=== PATIENT | male | born 1930 | race Hispanic/Latino ===

== ENCOUNTER 2018-01-28 21:24 | Inpatient (IN) | payer MEDICARE ==
[~2018-01-28] VITALS: Ht 165.1 cm; Wt 47.4 kg
[~2018-01-28 21:24] MED LIST: ASPIRIN81 M1 PO; BENAZEPRIL HCL20 MG PO; COUMADIN2.5 MG PO; CRESTOR20 MG
[2018-01-28 21:51] LABS: BASOPHILS % 0.1 % (0.0-1.0); EOSINOPHILS % 0.1 % (0.0-6.0); LYMPHOCYTES # (AUTO) 2.4 (1.0-3.2); LYMPHOCYTES % 16.3 % (18.0-39.1); MEAN CORPUSCULAR HEMOGLOBIN 22.5 pg (28-32); MEAN CORPUSCULAR HGB CONC 27.9 g/dL (31-35); MEAN CORPUSCULAR VOLUME 80.9 fL (81-99); MONOCYTES # (AUTO) 0.8 (0.2-0.8); MONOCYTES % 5.5 % (4.4-11.3); NEUTROPHILS # (AUTO) 11.3 (2.1-6.9); NEUTROPHILS % 76.7 % (38.7-80.0); PLATELET COUNT 301 x10e3/uL (140-360); RED BLOOD COUNT 1.73 x10e6/uL (4.3-5.7); RED CELL DISTRIBUTION WIDTH 18.4 % (11.7-14.4)
[2018-01-28 21:53] LABS: HEMOGLOBIN 3.9 g/dL (14.0-18.0)
[2018-01-28] MEDS ORDERED: HYDRALAZINE HCL25 MG PO (21:54)
[2018-01-28] MEDS ORDERED: MOBIC15 MG PO (21:54)
[2018-01-28] MEDS ORDERED: LOSARTAN POTAS100 MG PO (21:54)
[2018-01-28] MEDS ORDERED: ELIQUIS PO (21:54)
[2018-01-28] MEDS ORDERED: ATORVASTATIN CA10 MG PO (21:54)
--- NOTE | 2018-01-28 21:56 | Diagnostic Imaging Report ---
Examination: CT head without contrast Clinical Indication: Seizures. Technique: Transaxial noncontrast images from the skull base through the vertex were obtained. Sagittal and coronal reformatted images were done. Comparison: None Findings: Scalp: No abnormalities. Bones: Intact. No fractures. No blastic or lytic lesions. Brain sulci: Mild volume loss. Ventricles: No hydrocephalus. Extra-axial space: No acute abnormalities. Midline anterior falcine arachnoid cyst, measures 3.1 x 3.5 x 1.5cm (superoinferior x anteroposterior x transverse dimensions) with mild regional mass effect. Parenchyma: There are mild confluent areas of low-attenuation within subcortical and periventricular white matter, nonspecific, but could represent microvascular ischemic disease. No masses, hemorrhage, or acute or chronic cortical based vascular insults. Suprasellar region: No abnormalities. Craniocervical junction: The foramen magnum is patent. No Chiari one malformation. Incidental findings: Atherosclerotic calcification of the cavernous and supraclinoid internal carotid and V4 segments of the bilateral vertebral arteries. Impression: 1. No acute intracranial abnormality. 2. Mild chronic microvascular ischemic change and volume loss. Signed by: Dr. Giovanna Martin M.D. on 01/28/2018 9:53 PM
[2018-01-28 21:58] LABS: INR 1.33; PROTHROMBIN TIME 15.5 seconds (11.9-14.5)
[2018-01-28 21:59] LABS: PARTIAL THROMBOPLASTIN TIME 24.8 seconds (23.8-35.5)
[2018-01-28] MEDS ORDERED: SODIUM CHLORIDE 0.9% 250ML 250 ML IV ONE (22:00)
[2018-01-28] MEDS ORDERED: SODIUM CHLORIDE 0.9% 1000ML 1,000 ML IV ONE (22:00)
[2018-01-28 22:08] LABS: ALBUMIN 2.9 g/dL (3.5-5.0); ANION GAP 23.6 mmol/L (8-16); CALCIUM 8.8 mg/dL (8.4-10.2); CREATININE, SERUM 2.21 mg/dL (0.72-1.25)
--- NOTE | 2018-01-28 22:08 | Diagnostic Imaging Report ---
EXAMINATION: CHEST SINGLE (PORTABLE) INDICATION: Seizure. COMPARISON: None FINDINGS: TUBES and LINES: The pacemaker is intact. LUNGS: Lungs are not well inflated. There are bibasilar atelectasis. There is mild prominence of the central pulmonary vasculature, consistent with pulmonary venous congestion. PLEURA: No pleural effusion or pneumothorax. HEART AND MEDIASTINUM: Cardiac size is mildly enlarged. There are atherosclerotic calcifications within the aorta. Status post CABG procedure changes with midline sternotomy wires intact. BONES AND SOFT TISSUES: No acute osseous lesion. Soft tissues are unremarkable. UPPER ABDOMEN: No free air under the diaphragm. IMPRESSION: No acute thoracic abnormality. Signed by: Dr. Saud Serrano M.D. on 01/28/2018 10:03 PM
[2018-01-28 22:12] LABS: POTASSIUM 5.6 mmol/L (3.5-5.1)
[2018-01-28 22:14] LABS: CREATINE KINASE MB 130.5 ng/mL (0-5.0)
[2018-01-28 22:20] LABS: BILIRUBIN,URINE NEGATIVE (NEGATIVE); CLARITY,URINE SL CLOUDY (CLEAR); COLOR,URINE YELLOW (YELLOW); KETONES,URINE NEGATIVE (NEGATIVE); LEUKOCYTE ESTERASE ,URINE 1+ (NEGATIVE); NITRITE,URINE NEGATIVE (NEGATIVE); PROTEIN,URINE DIPSTICK TRACE (NEGATIVE); URINE UROBILINOGEN 0.2 mg/dL (0.2 - 1)
[2018-01-28 22:24] LABS: AMORPHOUS SEDIMENT,URINE FEW (FEW); EPITHELIAL CELLS,URINE FEW /LPF; WBC,URINE (MAN) 0-5 /HPF (0-5)
[2018-01-28] MEDS ORDERED: CALCIUM CHLORIDE 10% 1.36 MEQ/ML 10ML SYR IV STA (22:33)
[2018-01-28] MEDS ORDERED: SODIUM BICARBONATE 8.4% INJ 50 ML SYR IV STA (22:33)
[2018-01-28] MEDS ORDERED: DEXTROSE 50% SYRINGE 50 ML IV STA (22:33)
[2018-01-28] MEDS ORDERED: INSULIN REGULAR, HUMAN 100 UNIT/1 ML 3ML VIAL IV ONE (22:45)
[2018-01-28] MEDS: SODIUM CHLORIDE 0.9% 1000ML 1,000 ML IV SCH (23:04)
[2018-01-28] MEDS ORDERED: ONDANSETRON HCL INJ 2 MG/ML VIAL IV PRN (23:15)
[2018-01-29] VITALS (93 sets, daily range): BP systolic 68–145; BP diastolic 48–122
--- OUTSIDE RECORDS SUMMARY | 2018-01-29 00:06 | XMS REPORT ---
Author Author [facility] Address Unknown Phone Unavailable Care Team Providers Care Nursery Laborer Name Role Phone ROBERT MOLINA Unavailable Unavailable Problems This patient has no known problems. Allergies, Adverse Reactions, Alerts This patient has no known allergies or adverse reactions. Medications This patient has no known medications. Results Test Description Test Time Test Comments Text Results Atomic Results Result Comments CHEST SINGLE (PORTABLE) [place] [address] Patient Name: MICAH MCKINLEY MR #: [id number] : 1930 Age/Sex: 87/M Req #: [id number] Adm Physician: Ordered by: ROBERT MOLINA MD Report #: [id number] Location: ER Room/Bed: ___ Procedure: [id number] DX/CHEST SINGLE (PORTABLE) Exam Date: 01/28/18 Exam Time: 2119 REPORT STATUS: Signed EXAMINATION: CHEST SINGLE (PORTABLE) INDICATION: Seizure. COMPARISON: None FINDINGS: TUBES and LINES: The pacemaker is intact. LUNGS: Lungs are not well inflated. There are bibasilar atelectasis. There is mild prominence of the central pulmonary vasculature, consistent with pulmonary venous congestion. PLEURA: No pleural effusion or pneumothorax. HEART AND MEDIASTINUM: Cardiac size is mildly enlarged. There are atherosclerotic calcifications within the aorta. Status post CABG procedure changes with midline sternotomy wires intact. BONES AND SOFT TISSUES: No acute osseous lesion. Soft tissues are unremarkable. UPPER ABDOMEN: No free air under the diaphragm. IMPRESSION: No acute thoracic abnormality. Signed by: Dr. Saud Serrano M.D. on 2017 10:03 PM Dictated By: SAUD MORRISON MD 02 Transcribed By: WENDY on 01/28/182202 COPY TO: ROBERT MOLINA MD CT BRAIN WO [place] [address] Patient Name: MICAH MCKINLEY MR #: [id number] : 1930 Age/Sex: 87/M Req # : [id number] Adm Physician: Ordered by: ROBERT MOLINA MD Report # : [id number] Location: ER Room/Bed: Procedure: [id number] CT/CT BRAIN WO Exam Date: 01/28/18 Exam Time: 2119 REPORT STATUS: Signed Examination: CT head without contrast Clinical Indication: Seizures. Technique: Transaxial noncontrast images from the skull base through the vertex were obtained. Sagittal and coronal reformatted images were done. Comparison: None Findings: Scalp: No abnormalities. Bones: Intact. No fractures. No blastic or lytic lesions. Brain sulci: Mild volume loss. Ventricles: No hydrocephalus. Extra- axial space: No acute abnormalities. Midline anterior falcine arachnoid cyst , measures 3.1 x 3.5 x 1.5cm (superoinferior x anteroposterior x transverse dimensions) with mild regional mass effect. Parenchyma: There are mild confluent areas of low-attenuation within subcortical and periventricular white matter, nonspecific, but could represent microvascular ischemic disease. No masses, hemorrhage, or acute or chronic cortical based vascular insults. Suprasellar region: No abnormalities. Craniocervical junction: The foramen magnum is patent. No Chiari one malformation. Incidental findings: Atherosclerotic calcification of the cavernous and supraclinoid internal carotid and V4 segments of the bilateral vertebral arteries. Impression: 1. No acute intracranial abnormality. 2. Mild chronic microvascular ischemic change and volume loss. Signed by: Dr. Giovanna Martin M.D. on 01/28/2018 9:53 PM Dictated By: GIOVANNA WILBURN MD 52 Transcribed By: WENDY on 01/28/182152 COPY TO: ROBERT MOLINA MD
--- OUTSIDE RECORDS SUMMARY | 2018-01-29 00:06 | XMS REPORT | Clinical Summary ---
Author Author [facility] Address Unknown Phone Unavailable Care Team Providers Care Motel Maid Name Role Phone PCP Unavailable Allergies No Known Allergies Current Medications Prescription Sig. Disp. Refills Start End Date Status Date niacin 500 MG tablet Take 1,000 mg by mouth Active daily with breakfast Dose confirmed and verified with the patient.. atorvastatin (LIPITOR) 20 Take 20 mg by mouth Active MG tablet nightly . prasugrel (EFFIENT) 5 mg Take 5 mg by mouth. Active tablet Active Problems Problem Noted Date DVT (deep venous thrombosis) ([facility]) 07/02/2015 Anemia 07/02/2015 Cellulitis 07/02/2015 Severe sepsis ([facility]) 06/23/2015 Coronary atherosclerosis of squaxin coronary artery 02/20/2015 Nonspecific abnormal unspecified cardiovascular function study 02/20/2015 Social History Tobacco Use Types Packs/Day Years Used Date Never Smoker Alcohol Use Drinks/Week oz/Week Comments No Sex Assigned at Date Recorded Not on file Last Filed Vital Signs Not on file Plan of Treatment Not on file Results Not on fileafter 01/28/2017
[2018-01-29] MEDS: FUROSEMIDE INJ 10 MG/ML 2 ML VIAL IV PRN ×2 (02:03→04:46)
[2018-01-29 09:58] LABS: CREATININE,URINE RANDOM 66.87 mg/dL (63-166); TOTAL PROTEIN, URINE 19.5 mg/dL (1-14)
--- NOTE | 2018-01-29 09:59 | Consultation ---
DATE OF CONSULTATION: January 29, 2018 RENAL CONSULTATION Thank you for the consultation Mr. Medel is a pleasant 87-year-old male with a past medical history significant for coronary artery disease, status post CABG, prior history of what appears to be hypertension, history of pacemaker placement, likely chronic kidney disease, although stage for CKD has not been determined as yet, admitted to the hospital after he came in to the emergency room with complaints of weakness, confusion, generalized fatigue. Was found on blood work to have very low hemoglobin levels. Hemoglobin was 3.9, hematocrit 14. The patient had guaiac-positive stool. Was admitted and placed on blood transfusion, at least 3 units PRBC. Found to have elevated potassium at 5.6, bicarb of 11, BUN of 71, and creatinine of 2.2. Renal consultation has been asked for to follow him for what appears to be acute kidney injury on probable chronic kidney disease, stage not determined as yet. The patient is seen in the ICU this morning. He is not in any acute respiratory distress. He is getting the 3rd of his packed red blood cells. He has also been receiving Lasix in between since he does have a history of congestive heart failure, and will attempt to get fluid overloaded. The patient currently is alert, awake and responsive appropriately to commands. No nausea. No vomiting. No chest pain. No fever. No chills. No abdominal pain. No other specific symptoms at this time. PAST MEDICAL HISTORY: As outlined above. ALLERGIES: NO KNOWN DRUG ALLERGIES. SOCIAL HISTORY: No tobacco. No alcohol use. FAMILY HISTORY: Noncontributory. REVIEW OF SYSTEMS: See HPI. Otherwise, all systems negative. MEDICATIONS: Have been reviewed per chart. PHYSICAL EXAMINATION VITAL SIGNS: As follows: Blood pressure 119/74, pulse 72, afebrile, and 100% O2 sats on 2 L nasal cannula. HEENT: No cervical lymphadenopathy. NECK: Supple without masses. No obvious JVD. Moist oral mucosa. SKIN: Appears to be dry with poor skin turgor. CHEST: Good expansion. No chest wall tenderness. Lungs are clear to auscultation bilaterally. CARDIOVASCULAR: S1 and S2. No obvious gallop, rub or murmur. ABDOMEN: Soft. Positive bowel sounds. Nontender. No organomegaly. EXTREMITIES: No evidence of lower extremity edema. No clubbing. No cyanosis. NEUROLOGIC: Awake, alert and oriented times 3. Grossly, he has generalized weakness. Otherwise, nonfocal exam. LABS: Sodium 142. These are from last night. Potassium 5.6, chloride 113, carb of 11, BUN of 71, creatinine of 2.2. Calcium of 8.8. Glucose of 183. Troponin was high at 56. IMPRESSION AND PLAN 1. Acute kidney injury on chronic kidney disease, stage not determined yet: Acute kidney injury is likely secondary to the patient developing hypoperfusion state from decreased blood pressure likely secondary to hemorrhagic shock. The patient's blood pressure has come up after receiving packed red blood cell transfusions. I agree to correct the patient's hemoglobin and hematocrit by giving him blood products. The patient may benefit from intravenous fluids. However, after the 3rd packed red blood cell transfusion is complete, I would recheck his basic metabolic panel and decide what type of fluid, if any, to put the patient on. Will have to keep in mind that the patient does have a history of coronary artery disease, and came in with mild pulmonary vascular congestion on the chest x-ray. Therefore, would not be too aggressive with intravenous hydration especially since his blood pressure has already come up with packed red blood cell transfusion. We will recheck labs and decide whether or not he might need bicarb with intravenous fluids. Will recheck labs in the morning, also including basic metabolic panel, mag, phos, CBC, urine electrolytes. Will get a renal ultrasound as a baseline to evaluate for chronicity. Avoid potential nephrotoxic agents at this time. Avoid any JEVON inhibitors, Aleve, nonsteroidal anti-inflammatory drugs, and intravenous dye. Will continue to monitor closely with you and make further recommendations. Will have him come and see us in the outpatient setting as well once he is discharged from the hospital. 2. Hypotension: Blood pressure has already improved. Hold any and all blood pressure medicines at this time especially potassium sparing medications. Agree with packed red blood cell transfusion. Will repeat chemistry panel. After that, decide whether or not he might benefit from some intravenous fluids. 3. Metabolic acidosis likely secondary to hypoperfusion state: Will also order a lactic acid level for the morning. Expect that since his blood pressure is starting to improve that his metabolic acidosis will improve as renal perfusion improves and kidney function improves. If his bicarb is still low on repeat blood work, then may consider giving him gentle intravenous fluids with bicarb. 4. Hyperkalemia: Has been treated medically in the emergency room. Repeat lab will be done once this packed red blood cell transfusion is complete. If the potassium is still elevated, will retreat medically. Currently, no acute indication for dialysis at this time. Thank you once again for this consultation, Dr. Beckford and Dr. Liriano. Will follow the patient closely along with you and make further recommendations. Job#: [id number] RI cc:MD KAY ENGLAND M.D.
[2018-01-29] MEDS ORDERED: ONDANSETRON HCL INJ 2 MG/ML VIAL IV PRN (10:15)
[2018-01-29] MEDS ORDERED: ACETAMINOPHEN 325 MG TAB PO PRN (10:15)
--- NOTE | 2018-01-29 10:46 | History and Physical ---
CHIEF COMPLAINT: Dizziness and fall. HISTORY OF PRESENT ILLNESS: Mr. Medel is an 87-year-old male who is a regular patient of Dr. Tanner Soto. He presented to the emergency room because he was having dizzy episodes and falling for the last 3 days. The patient's reported that primary sales engineering manager was called, and she got an appointment to see him next month. In the emergency room, the patient was found to have a hemoglobin of 3 with renal failure and a creatinine of 2.2. The patient was admitted to ICU as the patient's troponin was 50 as well. He is receiving 4 units of blood. He is denying any complaints of chest pain, nausea, or vomiting and feels better now. REVIEW OF SYSTEMS GENERAL: Denies any fever or chills. HEAD: Denies any head trauma. ENT: Denies any earache. CVS: He was having chest discomfort. RESPIRATORY: He was having shortness of breath, too. GI: Denies any nausea or vomiting. MUSCULOSKELETAL: Denies any arthralgias or myalgias. NEURO: Denies any focal weakness. OTHER: The rest of the review of systems are negative except as in HPI. PAST MEDICAL HISTORY: Pacemaker placement, hypertension, chronic kidney disease, coronary artery disease. PAST SURGICAL HISTORY: CABG. FAMILY AND SOCIAL HISTORY: He does not smoke and does not drink. PHYSICAL EXAMINATION VITAL SIGNS: Temperature 98.6, pulse of 73, blood pressure 106/72, respiratory rate of 18, O2 sat 100% on 2 liters. SKIN: Warm and dry. HEENT: Head is atraumatic and normocephalic. Pupils are reactive. NECK: Supple. CHEST: Clear to auscultation bilaterally. No wheezing. No crackles. HEART: S1 and S2 audible. ABDOMEN: Soft, nontender. EXTREMITIES: No clubbing, cyanosis or edema. NEUROLOGIC: Awake, alert, oriented, following commands. No focal neurologic deficit. LABS: White count of 14,000, hemoglobin 3.9, platelets 301. Chemistry: Sodium 142, potassium 5.6, chloride 113, bicarb 11, BUN 71, creatinine 2.2. CK-MB 130, troponin 56, CK 994. INR is 1.33. EKG showed paced rhythm. ASSESSMENT/PLAN: Mr. Medel is an 87-year-old male with shortness of breath, dizziness, high troponin, hemoglobin of 3, guaiac-positive stools. Patient was on Effient and possibly was on Eliquis, too. CURRENT PROBLEMS 1. Acute blood loss anemia. 2. Coronary artery disease. 3. Fuzwp-mb-cbrsfwq kidney injury. 4. Dsv-SK-kfrmivjed myocardial infarction, likely due to severe anemia and blood loss. 5. Metabolic acidosis. 6. Pacemaker placement. PLAN 1. Transfuse the patient 4 units of blood. Consult GI. 2. Cardiology consult. Positive troponin. Possibility of NSTEMI versus ischemia due to anemia. 3. Nephrology consult. Pyirc-sr-omanlbw kidney injury. Patient is on IV hydration. 4. Blood pressure has been on the lower side because of hemorrhagic shock. Will hold off on the antihypertensive medications. Discussed with the patient's at bedside in detail. Critical care time spent was 50 minutes. Job#: [id number]
[2018-01-29 11:36] LABS: BASOPHILS % 0.2 % (0.0-1.0); HEMATOCRIT 27.5 % (38.2-49.6); HEMOGLOBIN 9.1 g/dL (14.0-18.0); LYMPHOCYTES # (AUTO) 1.1 (1.0-3.2); LYMPHOCYTES % 10.8 % (18.0-39.1); MEAN CORPUSCULAR HEMOGLOBIN 27.2 pg (28-32); MEAN CORPUSCULAR HGB CONC 33.1 g/dL (31-35); MEAN CORPUSCULAR VOLUME 82.1 fL (81-99); MONOCYTES # (AUTO) 0.7 (0.2-0.8); MONOCYTES % 6.8 % (4.4-11.3); NEUTROPHILS # (AUTO) 8.2 (2.1-6.9); NEUTROPHILS % 81.6 % (38.7-80.0); PLATELET COUNT 167 x10e3/uL (140-360); RED BLOOD COUNT 3.35 x10e6/uL (4.3-5.7); RED CELL DISTRIBUTION WIDTH 16.6 % (11.7-14.4)
[2018-01-29 11:54] LABS: ALBUMIN 2.3 g/dL (3.5-5.0); ANION GAP 12.5 mmol/L (8-16); CALCIUM 8.4 mg/dL (8.4-10.2); CREATININE, SERUM 1.75 mg/dL (0.72-1.25); POTASSIUM 4.5 mmol/L (3.5-5.1)
[2018-01-29 12:17] LABS: CREATINE KINASE MB 86.5 ng/mL (0-5.0)
[2018-01-29 12:46] LABS: CHOL/HDL RATIO 2.8 (3.9-4.7); PHOSPHORUS 4.2 MG/DL (2.3-4.7)
[2018-01-29 12:59] LABS: B-TYPE NATRIURETIC PEPTIDE2 3001.9 pg/mL (0-100)
[2018-01-29 13:05] LABS: THYROID STIMULATING HORMONE 0.963 uIU/mL (0.350-4.940)
--- NOTE | 2018-01-29 13:28 | Consultation ---
DATE OF CONSULTATION: January 29, 2018 CARDIOLOGY CONSULTATION REASON FOR CONSULTATION: Acute myocardial infarction, severe anemia. HISTORY: I was called in the propeller inspector hours by the ER physician for a gentleman who is at the ER with failure to thrive of 2 weeks' duration. His BUN at 71, creatinine 2.2, potassium at 5.6, and his hemoglobin only of 3.9 and hematocrit 40%. I recommended for him to repeat CBC to document those numbers, however this was not done. Patient received already 2 units packed red cells and is to receive the 3rd unit of packed red cells. Patient visited with his . Information taken from the . Apparently patient becoming forgetful over the last year or so but for the last 2 weeks it was very bad. As per he is very lethargic, obtunded, cannot do much activity, staying most of the time at home and he is very forgetful. She cannot take care of him. That is why she brought him to the emergency room. Patient is known with coronary artery disease, had coronary artery bypass surgery in 2003 of questionable details. He had pacemaker implantation at that time with no generator change. He is followed by . Five years ago he had intervention on his coronary. He was maintained on Effient. Also Eliquis later on added to his medical regimen. Patient's main problem is 2 weeks' duration of weakness, lethargic, obtunded, more confused. He was brought to the emergency room because she cannot take care of him because he is becoming more obtunded and very weak and lethargic. In emergency room his BUN was 71, creatinine of 2.2, potassium 5.6, hemoglobin 33.9, hematocrit of 14% and platelet of 301,000. His CK total of 994, MB of 130, troponin of 56. Patient seen by renal service. He was given IV fluid and the renal taking care of his problems. There is no history of congestive heart failure as diagnosis but patient does have severe shortness of breath on exertion and easy fatigability but he is still functional, he is still able to go to the bathroom, "his mind is just failing him more than his body" prior to this acute illness 2 weeks ago. REVIEW OF SYSTEMS GENERAL: No fever. No chills. CARDIAC/PULMONARY: As per acute illness, mainly shortness of breath on exertion, easy fatigability, chest tightness and in the last 2 weeks lethargic and dizzy. GI: Constipation. : Patient does have chronic problem with his urine. He used to catheterize himself to relief his obstructive disease and weak bladder. MUSCULAR: Nonspecific aches. NEUROLOGY: No seizure activity although he was very weak. The said that seizure but by questioning her there is no seizure activity. He is obtunded and lethargic, no local deficits. MENTATION: Patient becoming very forgetful over the last year or so, worse in the last couple of weeks. HEMATOLOGICAL: Easy bruising but no overt bleeding noted prior to this admission. PAST MEDICAL HISTORY 1. Coronary artery disease post coronary bypass surgery in 2003. 2. Pacemaker implantation in 2003. 3. Possible history of congestive heart failure. 4. Possible chronic kidney disease. 5. Definite weak bladder and patient using a Candelaria catheter to catheterize himself. 6. Patient becoming more forgetful and possible dementia. 7. Status post PCI latest 5 years ago by . 8. Atrial arrhythmia. Patient is on Eliquis. HOME MEDICATIONS: Long list including Lipitor 10 mg a day, Eliquis one tablet twice a day, Effient 10 mg a day, hydralazine 50 mg three times a day, losartan 100 mg a day, meloxicam 15 mg a day. ALLERGIES: NONE. FAMILY HISTORY: No family history of premature coronary artery disease. PHYSICAL EXAMINATION VITALS: Height of 5 feet 5 inches, weight of 127 pounds. Blood pressure 100/70. Heart rate of 70. Respiratory rate of 18. HEENT: Pupils are reactive. NECK: No elevation of jugular venous pulsation. CHEST: Crackles bilaterally. HEART: PMI 5th left intercostal space increased intensity of 2nd heart sound. There is murmur over the left sternal border. Ejection systolic murmur. ABDOMEN: Soft. Bowel sounds are present. No organomegaly. EXTREMITIES: No edema. No clubbing. Decreased feet pulses. NEUROLOGIC: Able to move his extremities however he does not seem to be oriented. He is a little bit obtunded and lethargic. LABORATORY DATA: Sodium of 142, potassium 5.6, BUN of 71, creatinine of 2.2. Bicarb of only 11. White blood cell count of 14.6, hemoglobin 3.9, hematocrit 14%, platelet count 301,000. Stool for blood is positive. CK of 994, MB of 130, troponin of 56. EKG showing pacer activities. IMAGING: Chest x-ray showing no acute changes. IMPRESSION AND PLAN 1. Probably euckx-oa-ysbpqxq gastrointestinal losses since patient tolerating the slow hemoglobin if it is correct. Patient already received the blood. 2. Myocardial infarction definitely by enzymes. 3. Usezf-ni-tnaakhb renal insufficiency. 4. Weak bladder in patient using catheter to catheterize himself at home. 5. Pacemaker. 6. Coronary artery bypass surgery. 7. Percutaneous coronary intervention 5 years ago. Cardiac-camacho definitely patient should not be anticoagulated or have any antiplatelet. Support volume and observe to avoid volume overload. Will check an echocardiogram. Will repeat all the lab. Will check his pacemaker. Will follow patient's progression with you and would like to thank you for your kind referral. Job#: [id number] JAGDISH
[2018-01-29] MEDS: SODIUM CHLORIDE 0.9% 1000ML 1,000 ML IV SCH ×3 (13:31→22:58)
[2018-01-29] MEDS: METOPROLOL TARTRATE 25 MG TAB PO SCH ×2 (13:41→18:00)
[2018-01-29] MEDS ORDERED: SODIUM BICARBONATE 8.4% 75 ML in SODIUM CHLORIDE 0.45% 1,000 ML IV ONE (14:45)
--- NOTE | 2018-01-29 15:32 | Diagnostic Imaging Report ---
PROCEDURE:US RETROPERITONEAL ( KIDNEY ). COMPARISON:None. INDICATIONS:Eval Size TECHNIQUE: Hoyos-scale and color sonographic images of the bilateral kidneys and bladder where obtained in transverse and longitudinal planes. FINDINGS: RIGHT KIDNEY: Measures 8.1 cm in length. The cortex measures 1.1 cm in thickness. Cysts: None Solid masses: None Stones: None Hydronephrosis: None Echogenicity: Increased. LEFT KIDNEY: Measures 9.5 cm in length. The cortex measures 1.1 cm in thickness.. Cysts: None Solid masses: None Stones: None Hydronephrosis: None Echogenicity: Increased Bladder: Collapsed around a Candelaria catheter No free fluid in the pelvis. Survey images of the liver demonstrate no focal abnormality. CONCLUSION: Increased renal echotexture consistent with medical renal disease. Bilateral renal atrophy. No renal mass or hydronephrosis. Dictated by: Jennifer Mari M.D. on 01/29/2018 at 15:34 Electronically approved by: Jennifer Mari M.D. on 01/29/2018 at 15:34
--- NOTE | 2018-01-29 18:46 | Consultation ---
DATE OF CONSULTATION: January 29, 2018 GASTROENTEROLOGY CONSULTATION REFERRING PHYSICIAN: Dr. Beckford. REASON FOR CONSULTATION: Severe anemia. HISTORY OF PRESENT ILLNESS: Mr. Medel is an 87-year-old man who came in with failure to thrive. His was unable to take care of him. He has significant weakness. He is found to have a major acute myocardial infarction driven by the anemia. He has a history of coronary disease. He is confused and not offering much information. He was found to be FOBT positive in the ER. There is no report of overt bleeding. PAST MEDICAL HISTORY: 1. Coronary artery disease. 2. Chronic kidney disease. 3. Hypertension. 4. Pacemaker. MEDICATIONS AND ALLERGIES: REVIEWED. PLEASE SEE MAR, MEDICATION RECONCILIATION FORM. SOCIAL HISTORY: No alcohol, tobacco or illicit substance. FAMILY HISTORY: Reviewed and noncontributory. REVIEW OF SYSTEMS: Ten-system review is positive for that mentioned in history of present illness. He is lethargic and does not offer very much information. Therefore, review of systems is limited. PHYSICAL EXAMINATION: GENERAL: He is calm, in no acute distress, lying in bed. HEENT: Pupils equal, round, reactive. NECK: Supple. LUNGS: Clear. CARDIOVASCULAR: S1/S2. ABDOMEN: Soft, nontender, nondistended. Normal bowel sounds. EXTREMITIES: No clubbing, cyanosis or edema. PSYCH: Calm, cooperative. NEUROLOGIC: Alert. HEME/ONC: No ecchymosis or cervical adenopathy. The electronic health records reviewed for laboratory and radiologic studies as well as history. ASSESSMENT: 1. Severe anemia, likely acute on chronic. 2. Dfc-RW-chwylqbak myocardial infarction. 3. Coronary artery disease and pacemaker. PLAN: At the current time will get iron studies although they will be altered post transfusion. Will also get abdominal imaging to evaluate his elevated LFTs, which is likely a mild ischemic injury. Will also evaluate the liver parenchyma for any underlying hepatic insufficiency. Patient will need endoscopy at some point. I discussed today with Dr. Díaz over the phone. He is a higher risk for endoscopic procedures at the current time. As it will probably not alter management acutely, will hold off on endoscopy for now. However, will need to be done down the road. Will monitor for any overt bleeding. Monitor hemoglobin/hematocrit. He is avoiding NSAIDs and anticoagulation at this time. Thank you very much for asking me to see Mr. Medel. Any questions or concerns, please do not hesitate to contact me. Will follow closely with you. Job#: [id number] EV
[2018-01-29 21:20] LABS: CREATINE KINASE MB 43.2 ng/mL (0-5.0)
[2018-01-30] VITALS (89 sets, daily range): BP systolic 72–134; BP diastolic 55–108
[2018-01-30] MEDS: METOPROLOL TARTRATE 25 MG TAB PO SCH ×5 (00:51→23:24)
[2018-01-30 06:21] LABS: BASOPHILS % 0.1 % (0.0-1.0); HEMATOCRIT 27.7 % (38.2-49.6); HEMOGLOBIN 8.9 g/dL (14.0-18.0); LYMPHOCYTES # (AUTO) 1.2 (1.0-3.2); LYMPHOCYTES % 11.8 % (18.0-39.1); MEAN CORPUSCULAR HEMOGLOBIN 27.1 pg (28-32); MEAN CORPUSCULAR HGB CONC 32.1 g/dL (31-35); MEAN CORPUSCULAR VOLUME 84.5 fL (81-99); MONOCYTES # (AUTO) 0.6 (0.2-0.8); MONOCYTES % 5.7 % (4.4-11.3); NEUTROPHILS # (AUTO) 8.4 (2.1-6.9); NEUTROPHILS % 81.6 % (38.7-80.0); PLATELET COUNT 180 x10e3/uL (140-360); RED BLOOD COUNT 3.28 x10e6/uL (4.3-5.7); RED CELL DISTRIBUTION WIDTH 17.2 % (11.7-14.4)
[2018-01-30 06:43] LABS: ALBUMIN 2.2 g/dL (3.5-5.0); ANION GAP 13.4 mmol/L (8-16); CALCIUM 8.1 mg/dL (8.4-10.2); CHOL/HDL RATIO 2.9 (3.9-4.7); CREATININE, SERUM 1.74 mg/dL (0.72-1.25); POTASSIUM 4.4 mmol/L (3.5-5.1)
[2018-01-30 07:00] LABS: FERRITIN 26.17 ng/mL (21.81-274.66)
[2018-01-30 07:06] LABS: THYROID STIMULATING HORMONE 0.978 uIU/mL (0.350-4.940)
[2018-01-30 07:07] LABS: PHOSPHORUS 4.7 MG/DL (2.3-4.7)
[2018-01-30] MEDS: SODIUM CHLORIDE 0.9% 1000ML 1,000 ML IV SCH ×2 (09:30→21:51)
[2018-01-30] MEDS: PANTOPRAZOLE 40 MG 10ML VIAL IV SCH ×2 (09:30→17:47)
[2018-01-30] MEDS: IRON SUCROSE 100 MG in SODIUM CHLORIDE 0.9% 100 ML 100 ML IV SCH (09:30)
--- NOTE | 2018-01-30 09:43 | Progress Note ---
DATE: January 30, 2018 RENAL PROGRESS NOTE SUBJECTIVE: Followed for acute kidney injury on chronic kidney disease, stage not determined, but likely CKD, stage 3 at baseline. Kidney function continues to improve compared with yesterday. Kidney function has improved. Lactic acid is normal. Bicarb has come up to 21 after gentle IV fluid hydration. Potassium has normalized also. The patient overall generally feels better. He is no longer hypotensive. No other complaints. No fever. No chills. No nausea or vomiting at this time. OBJECTIVE VITAL SIGNS: Are as follows: Blood pressure 123/80, pulse 60 and afebrile. LUNGS: Clear to auscultation bilaterally. CARDIOVASCULAR: S1 and S2. No rubs. ABDOMEN: Soft and nontender. EXTREMITIES: No edema. LABS: Have been reviewed. Sodium 146, potassium 4.4, chloride 116, carb 21, BUN 62, creatinine 1.7. Lactic acid was normal. Hematology showed 8.9 hemoglobin, 27.7 hematocrit. IMPRESSION AND PLAN 1. Acute kidney injury on chronic kidney disease, stage 3: Continues to improve as kidney function. Will keep off intravenous fluids to avoid fluid overload. The patient appears euvolemic now. The patient will also require followup in the outpatient setting. 2. Hypertension: Blood pressure is normal now. Keep off blood pressure lowering medications for now. 3. Hyperkalemia, resolved: No further need to treat potassium at this time. 4. Metabolic acidosis: Also resolved. The patient is off the intravenous fluids with the bicarb now. Job#: [id number] SHELBI
--- NOTE | 2018-01-30 11:18 | Diagnostic Imaging Report ---
PROCEDURE:LIVER ULTRASOUND COMPARISON:Renal ultrasound from 01/29/2018 INDICATIONS:ELEVATED LFT FINDINGS: Liver: 14.5 Normal hepatic parenchymal echogenicity. No focal mass. Main portal vein: 1.1 cm in caliber, normal. Hepatopedal flow. Gallbladder: There is wall thickening (4 mm) and a small amount of wilbur-cholecystic fluid. No stones or sludge. Common Bile Duct: 0.2 cm in caliber, normal No echogenic filling defect. Sonographic Whittaker's sign: Reported as negative Right kidney: 9.2 cm in length No solid or cystic mass, echogenic calculi, or hydronephrosis. Normal parenchymal echogenicity. Pancreas: Not well-visualized due to overlying bowel gas. Inferior vena cava: Normal. Aorta: Not well-visualized due to overlying bowel gas. Ascites: None. CONCLUSION: Gallbladder wall thickening and a small amount of pericholecystic fluid, but no gallstones or sludge. The findings are suspicious for acalculous cholecystitis. Dictated by: Henrique Rodríguez M.D. on 01/30/2018 at 11:20 Electronically approved by: Henrique Rodríguez M.D. on 01/30/2018 at 11:20
--- NOTE | 2018-01-30 11:36 | Diagnostic Imaging Report ---
PROCEDURE: A single AP view of the chest. COMPARISON: 01/28/2018 INDICATIONS: MT FINDINGS: Lines/tubes: Left chest wall pacemaker with leads in the expected positions. Lungs: Nonspecific and by basilar air space opacities. Mild interstitial opacities. Pleura: There is no pleural effusion or pneumothorax. Heart and mediastinum: The heart and the mediastinum are unremarkable. Post surgical changes from prior CABG. Bones: No acute bony abnormality. Median sternotomy wires appear intact. IMPRESSION: Interstitial opacities and nonspecific airspace opacities in the lung bases. Suspect mild pulmonary edema. Dictated by: Henrique Rodríguez M.D. on 01/30/2018 at 11:37 Electronically approved by: Henrique Rodríguez M.D. on 01/30/2018 at 11:37
[2018-01-31] VITALS (46 sets, daily range): BP systolic 102–137; BP diastolic 61–107
[2018-01-31] MEDS: METOPROLOL TARTRATE 25 MG TAB PO SCH ×3 (05:11→17:38)
[2018-01-31 06:35] LABS: BASOPHILS % 0.3 % (0.0-1.0); EOSINOPHILS % 0.2 % (0.0-6.0); HEMATOCRIT 29.3 % (38.2-49.6); HEMOGLOBIN 9.1 g/dL (14.0-18.0); LYMPHOCYTES # (AUTO) 0.9 (1.0-3.2); LYMPHOCYTES % 9.8 % (18.0-39.1); MEAN CORPUSCULAR HEMOGLOBIN 27.2 pg (28-32); MEAN CORPUSCULAR HGB CONC 31.1 g/dL (31-35); MEAN CORPUSCULAR VOLUME 87.7 fL (81-99); MONOCYTES # (AUTO) 0.6 (0.2-0.8); MONOCYTES % 6.2 % (4.4-11.3); NEUTROPHILS # (AUTO) 7.8 (2.1-6.9); PLATELET COUNT 159 x10e3/uL (140-360); RED BLOOD COUNT 3.34 x10e6/uL (4.3-5.7)
[2018-01-31 07:01] LABS: ALBUMIN 2.1 g/dL (3.5-5.0); ALBUMIN/GLOBULIN RATIO 1.1 (0.8-2.0); ANION GAP 12.4 mmol/L (8-16); CALCIUM 7.8 mg/dL (8.4-10.2); CREATININE, SERUM 1.26 mg/dL (0.72-1.25); POTASSIUM 4.4 mmol/L (3.5-5.1)
[2018-01-31] MEDS: IRON SUCROSE 100 MG in SODIUM CHLORIDE 0.9% 100 ML 100 ML IV SCH (10:24)
[2018-01-31] MEDS: PANTOPRAZOLE 40 MG 10ML VIAL IV SCH ×2 (10:24→17:37)
--- NOTE | 2018-01-31 14:52 | Progress Note ---
DATE: January 31, 2018 RENAL PROGRESS NOTE SUBJECTIVE: Followed for acute kidney injury on chronic kidney disease stage 3. Acute kidney injury continues to improve. Patient should have been off of the IV fluids last couple of days actually. I had discontinued the IV fluids. They are still showing up on the MAR. Not clear whether or not the patient has been receiving IV fluids overnight; however, the chest x-ray from yesterday did show some mild vascular congestion still. No nausea, no vomiting, no shortness of breath at this time. OBJECTIVE VITAL SIGNS: Vital signs have been noted and are stable. Blood pressure 123/74, pulse 60, afebrile. LUNGS: Minimal rales at the bases. CARDIOVASCULAR: S1 and S2. No rub. ABDOMEN: Soft, nontender. EXTREMITIES: No edema. LABS: Creatinine is 1.26, BUN 54, sodium 143, potassium 4.4, bicarb of 19. IMPRESSION AND PLAN 1. Chronic kidney disease stage 3 at baseline now. Patient should have been off of IV fluids. I will discontinue those from the DEC. He should not have been receiving those over the last couple of days since they were discontinued already. 2. History of congestive heart failure. Chest x-ray did show some mild congestion. Will start him on oral Bumex 1 mg daily and will reevaluate. 3. Metabolic acidosis. Feel secondary to saline load from the normal saline. Will discontinue the IV fluids since it should already have been discontinued. 4. Hypernatremia. Could be from the hypervolemia from the normal saline. Will discontinue the normal saline. Start the patient on oral Bumex. Thank you once again. Job#: [id number] EV
[2018-01-31] MEDS: BUMETANIDE 1 MG TAB PO SCH (17:37)
[2018-02-01 00:05] VITALS: BP 138/81
[2018-02-01 00:20] VITALS: BP 144/80
[2018-02-01] MEDS: METOPROLOL TARTRATE 25 MG TAB PO SCH ×4 (00:30→18:23)
[2018-02-01 03:00] VITALS: BP 138/90
[2018-02-01 04:40] VITALS: BP 131/70
[2018-02-01 06:59] LABS: ANION GAP 16.4 mmol/L (8-16); CALCIUM 8.5 mg/dL (8.4-10.2); CREATININE, SERUM 1.49 mg/dL (0.72-1.25); MAGNESIUM 1.9 MG/DL (1.3-2.1); POTASSIUM 4.4 mmol/L (3.5-5.1)
[2018-02-01] MEDS: IRON SUCROSE 100 MG in SODIUM CHLORIDE 0.9% 100 ML 100 ML IV SCH (09:45)
[2018-02-01] MEDS: PANTOPRAZOLE 40 MG 10ML VIAL IV SCH ×2 (09:45→17:00)
[2018-02-01] MEDS: BUMETANIDE 1 MG TAB PO SCH (09:45)
[2018-02-01 11:09] LABS: BASOPHILS % 0.2 % (0.0-1.0); EOSINOPHILS % 0.1 % (0.0-6.0); HEMOGLOBIN 9.9 g/dL (14.0-18.0); LYMPHOCYTES % 8.3 % (18.0-39.1); MEAN CORPUSCULAR HGB CONC 30.9 g/dL (31-35); MEAN CORPUSCULAR VOLUME 87.2 fL (81-99); MONOCYTES # (AUTO) 0.7 (0.2-0.8); MONOCYTES % 5.6 % (4.4-11.3); NEUTROPHILS # (AUTO) 10.1 (2.1-6.9); NEUTROPHILS % 84.5 % (38.7-80.0); PLATELET COUNT 181 x10e3/uL (140-360); RED BLOOD COUNT 3.67 x10e6/uL (4.3-5.7); RED CELL DISTRIBUTION WIDTH 18.6 % (11.7-14.4)
[2018-02-01] MEDS ORDERED: TAMSULOSIN HCL 0.4 MG CAP PO SCH (11:30)
[2018-02-01] MEDS ORDERED: HALOPERIDOL 5 MG TAB PO PRN (12:00)
[2018-02-01 12:07] LABS: CLARITY,URINE CLOUDY (CLEAR); COLOR,URINE YELLOW (YELLOW)
[2018-02-01 12:08] LABS: BILIRUBIN,URINE NEGATIVE (NEGATIVE); KETONES,URINE NEGATIVE (NEGATIVE); LEUKOCYTE ESTERASE ,URINE 2+ (NEGATIVE); NITRITE,URINE NEGATIVE (NEGATIVE); PROTEIN,URINE DIPSTICK 2+ (NEGATIVE); URINE UROBILINOGEN 0.2 mg/dL (0.2 - 1)
[2018-02-01 12:16] LABS: WBC,URINE (MAN) >50 /HPF (0-5)
[2018-02-01 12:17] LABS: BACTERIA,URINE FEW /HPF; EPITHELIAL CELLS,URINE FEW /LPF; MUCUS,URINE FEW (RARE)
[2018-02-01] MEDS ORDERED: HALOPERIDOL LACTATE 5 MG/ML VIAL IM ONE (13:00)
[2018-02-01 20:40] VITALS: BP 116/67
[2018-02-01] MEDS: TAMSULOSIN HCL 0.4 MG CAP PO SCH (20:56)
[2018-02-02] VITALS (12 sets, daily range): BP systolic 106–133; BP diastolic 62–76
--- NOTE | 2018-02-02 04:31 | Diagnostic Imaging Report ---
EXAMINATION: CHEST XRAY LINE PLACEMENT INDICATION: PICC line placement. COMPARISON: 01/30/2018 FINDINGS: TUBES and LINES: Interval placement of right upper extremity PICC line with distal tip at the level of the mid SVC LUNGS: Lungs are not well inflated. There are bibasilar atelectasis. There is perihilar interstitial opacities, consistent with interstitial edema. PLEURA: Small bilateral pleural effusions. HEART AND MEDIASTINUM: Cardiac size is mildly enlarged. There are atherosclerotic calcifications within the aorta. Midline sternotomy wires are stable, intact BONES AND SOFT TISSUES: No acute osseous lesion. Soft tissues are unremarkable. UPPER ABDOMEN: No free air under the diaphragm. IMPRESSION: Mild cardiomegaly pulmonary edema with bilateral pleural effusions. Signed by: Dr. Saud Serrano M.D. on 02/02/2018 4:27 AM
[2018-02-02 06:41] LABS: BASOPHILS % 0.1 % (0.0-1.0); EOSINOPHILS % 0.4 % (0.0-6.0); HEMATOCRIT 27.5 % (38.2-49.6); HEMOGLOBIN 8.7 g/dL (14.0-18.0); LYMPHOCYTES % 10.3 % (18.0-39.1); MEAN CORPUSCULAR HEMOGLOBIN 27.2 pg (28-32); MEAN CORPUSCULAR HGB CONC 31.6 g/dL (31-35); MEAN CORPUSCULAR VOLUME 85.9 fL (81-99); MONOCYTES # (AUTO) 0.5 (0.2-0.8); MONOCYTES % 5.6 % (4.4-11.3); NEUTROPHILS # (AUTO) 7.8 (2.1-6.9); NEUTROPHILS % 82.3 % (38.7-80.0); PLATELET COUNT 164 x10e3/uL (140-360); RED CELL DISTRIBUTION WIDTH 18.7 % (11.7-14.4)
[2018-02-02] MEDS: METOPROLOL TARTRATE 25 MG TAB PO SCH ×4 (06:43→18:04)
[2018-02-02 07:07] LABS: ANION GAP 10.4 mmol/L (8-16); CALCIUM 8.1 mg/dL (8.4-10.2); CREATININE, SERUM 1.16 mg/dL (0.72-1.25); MAGNESIUM 1.6 MG/DL (1.3-2.1); PHOSPHORUS 3.1 MG/DL (2.3-4.7); POTASSIUM 3.4 mmol/L (3.5-5.1)
[2018-02-02] MEDS: PANTOPRAZOLE 40 MG 10ML VIAL IV SCH ×2 (08:24→18:04)
[2018-02-02] MEDS: BUMETANIDE 1 MG TAB PO SCH (08:24)
[2018-02-02] MEDS ORDERED: POTASSIUM CHLORIDE 20 MEQ TAB CR PO SCH (09:15)
--- NOTE | 2018-02-02 09:46 | Progress Note ---
DATE: February 02, 2018 RENAL PROGRESS NOTE SUBJECTIVE: Followed for acute kidney injury on chronic kidney disease, stage 3. The patient's kidney function continues to improve. Creatinine is down to about 1.2 now. No nausea, no vomiting, no shortness of breath. The patient has responded well to oral Bumex. The patient's overall fluid overload has largely resolved, also. OBJECTIVE VITAL SIGNS: Blood pressure 130/68, 60 pulse, afebrile. LUNGS: Minimal rales at the bases. CARDIOVASCULAR: S1 and S2. No rub. ABDOMEN: Soft, nontender. EXTREMITIES: No edema. LABS: H and H 8.7 and 27.5. Chemistry show potassium 3.4, BUN 41, creatinine 1.2, sodium 143. IMPRESSION AND PLAN 1. Acute kidney injury, resolved. 2. Chronic kidney disease, stage 3, at baseline. 3. Hypertension, controlled more or less. 4. Congestive heart failure history. Continue oral Bumex. Will add oral potassium, since the potassium has been running low. Thank you once again. Job#: [id number]
[2018-02-02] MEDS ORDERED: SINCALIDE 3 MCG/VIAL INJ ONE (11:34)
[2018-02-02] MEDS: PIPER-TAZ 3.375 GM 100 ML IV SCH ×2 (14:18→21:01)
--- NOTE | 2018-02-02 14:18 | Diagnostic Imaging Report ---
Hepatobiliary Scan with Gallbladder Ejection Fraction Clinical information: 87 M with abdominal pain; abnormal abdominal ultrasound Technique: Following intravenous administration of 6.7 millicuries of Tc-99m mebrofenin, dynamic images of the abdomen in the anterior projection were obtained through 30 minutes. Sincalide (CCK analog) 1.2 micrograms was administered intravenously over 30 minutes with additional imaging for determination of gallbladder ejection fraction. Discussion: Perfusion of the liver is normal. Extraction of tracer by the liver parenchyma is normal. Tracer appears promptly within the biliary tract. The gallbladder begins to fill at 12 minutes post injection of tracer and fills adequately. Tracer is seen in the small bowel by 10 minutes. There is no contractile response by the gallbladder to the pharmacologic dose of sincalide. No emptying of the gallbladder occurs during the 30 minute infusion. Impression: 1. Filling of the gallbladder excludes acute cystic duct obstruction/acute cholecystitis, including acalculous cholecystitis. 2. The gallbladder ejection fraction is undefined as there is no emptying of the gallbladder during the infusion of sincalide. 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 Signed by: Dr. Armida Sparks M.D. on 02/02/2018 2:14 PM
[2018-02-02] MEDS: QUETIAPINE FUMARATE 25 MG TAB PO SCH (21:01)
[2018-02-02] MEDS: TAMSULOSIN HCL 0.4 MG CAP PO SCH (21:01)
[2018-02-03] VITALS (7 sets, daily range): BP systolic 100–134; BP diastolic 53–77
[2018-02-03] MEDS: METOPROLOL TARTRATE 25 MG TAB PO SCH ×4 (00:36→18:00)
[2018-02-03 06:38] LABS: BASOPHILS % 0.2 % (0.0-1.0); EOSINOPHILS # (AUTO) 0.1 (0.0-0.4); EOSINOPHILS % 1.4 % (0.0-6.0); HEMOGLOBIN 8.8 g/dL (14.0-18.0); LYMPHOCYTES # (AUTO) 1.3 (1.0-3.2); LYMPHOCYTES % 13.8 % (18.0-39.1); MEAN CORPUSCULAR HEMOGLOBIN 27.2 pg (28-32); MEAN CORPUSCULAR HGB CONC 31.4 g/dL (31-35); MEAN CORPUSCULAR VOLUME 86.4 fL (81-99); MONOCYTES # (AUTO) 0.6 (0.2-0.8); MONOCYTES % 6.1 % (4.4-11.3); NEUTROPHILS % 76.7 % (38.7-80.0); PLATELET COUNT 170 x10e3/uL (140-360); RED BLOOD COUNT 3.24 x10e6/uL (4.3-5.7); RED CELL DISTRIBUTION WIDTH 19.3 % (11.7-14.4)
[2018-02-03 07:17] LABS: ANION GAP 10.4 mmol/L (8-16); BLOOD UREA NITROGEN 29 mg/dL (7-26); BUN/CREATININE RATIO 26 (6-25); CALCIUM 8.1 mg/dL (8.4-10.2); CARBON DIOXIDE 25 mmol/L (22-29); CHLORIDE 111 mmol/L (98-107); CREATININE, SERUM 1.11 mg/dL (0.72-1.25); EST GLOMERULAR FILTRATION RATE > 60 ML/MIN (60-); GLUCOSE 94 mg/dL (74-118); MAGNESIUM 1.4 MG/DL (1.3-2.1); PHOSPHORUS 2.4 MG/DL (2.3-4.7); POTASSIUM 3.4 mmol/L (3.5-5.1); SODIUM 143 mmol/L (136-145)
[2018-02-03] MEDS: PIPER-TAZ 3.375 GM 100 ML IV SCH ×3 (07:52→22:52)
[2018-02-03] MEDS: BUMETANIDE 1 MG TAB PO SCH (09:00)
[2018-02-03] MEDS: PANTOPRAZOLE 40 MG 10ML VIAL IV SCH ×2 (09:00→17:00)
--- NOTE | 2018-02-03 09:29 | Progress Note ---
DATE: February 03, 2018 RENAL PROGRESS NOTE SUBJECTIVE: Followed for acute kidney injury on chronic kidney disease, stage 2 to stage 3. Kidney function continues to improve. Creatinine is down to 1.1. No nausea, no vomiting, no shortness of breath. OBJECTIVE VITAL SIGNS: Have been noted and are stable as follows: Blood pressure 126/67, 60 heart rate, afebrile. LUNGS: Clear to auscultation bilaterally. CARDIOVASCULAR: S1 and S2. No rub. ABDOMEN: Soft, nontender. EXTREMITIES: No edema. LABS: Have been reviewed. Potassium is 3.4. BUN is 29 and creatinine 1.1. IMPRESSION AND PLAN 1. Chronic kidney disease, stage 2 to stage 3. Stable kidney function. Continue to monitor closely. 2. Hypertension. Blood pressure is stable on current regimen. Will continue to monitor closely. 3. Hypokalemia. Increase potassium chloride to 20 mEq twice a day. 4. History of congestive heart failure. Will continue bumetanide 1 mg daily. 5. Proteinuria. Will consider rechecking urine sxdtxnc-cn-srojtujkcr ratio after UTI has resolved, and we will make further recommendations. Thank you once again. Job#: [id number]
[2018-02-03] MEDS: POTASSIUM CHLORIDE 20 MEQ TAB CR PO SCH ×2 (09:30→17:00)
--- NOTE | 2018-02-03 19:32 | Consultation ---
DATE OF CONSULTATION: February 03, 2018 UROLOGY CONSULTATION REASON FOR CONSULTATION: Urinary retention. HISTORY OF PRESENT ILLNESS: Jerson Medel is an 87-year-old man who was found to have urinary retention. He saw Dr. Steve Garcia several weeks ago and basically was instructed to do intermittent self-cath 2 times a day. The patient has not been able to void for some time. The patient denies any previous hematuria, dysuria, urinary tract infections, urolithiasis, denies any urinary incontinence. PAST MEDICAL AND SURGICAL HISTORY 1. Coronary artery disease status post coronary artery bypass grafting x1. 2. Admission with anemia. 3. Presumedly acute renal failure. 4. Status post pacemaker placement. 5. Hypertension. ALLERGIES: NONE KNOWN. CURRENT MEDICATIONS: Please refer to the MAR. FAMILY HISTORY: Noncontributory to the active urological problems. SOCIAL HISTORY: The patient denies smoking, ethanol or drug use. He has supportive family at the bedside. 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 REVIEW OF SYSTEMS: As consistent with above history of present illness and past medical history, otherwise negative for all other systems. PHYSICAL EXAMINATION GENERAL: Very healthy, alert, awake and oriented and a good historian, 87-year-old man lying in bed in no apparent distress. VITAL SIGNS: He is currently afebrile. His vital signs are currently stable. ABDOMEN: Soft, nondistended, nontender, without costovertebral angle tenderness. Kidneys are not palpable and no obvious evidence of hernia. GENITOURINARY: Testes descended bilaterally. Testes and epididymides bilaterally normal. The patient has a normal uncircumcised male phallus with normal meatus without any lesion. DIGITAL RECTAL EXAMINATION: Deferred at the present time. For the remaining physical examination and systems, please refer to the admission history and physical on the chart. LABORATORY STUDIES: Renal sonography revealed bilaterally increased echogenicity but otherwise unremarkable renal ultrasound. A urine culture is significant for Enterococcus faecalis that is pansensitive, and although the patient is on Zosyn, penicillin will do for this particular infection. White blood cell count was elevated to 12,010. Today it is normalized to 9110. Hemoglobin is low at 8.8. It was as low as 3.9 upon admission prior to 4 units of blood. Platelet count normal at 170,000. The patient's creatinine was elevated to 2.21 upon admission, and today it is normalized to 1.11. Patient's calcium is low at 8.1. Patient's potassium is slightly low at 3.4. ASSESSMENT 1. Urinary retention. 2. Candelaria catheter in situ. 3. Urinary tract infection. 4. Leukocytosis that improved. 5. Anemia that is stable. 6. Acute renal failure that is improved. 7. Hypocalcemia. 8. Hypokalemia. PLAN 1. I defer the electrolytes to the renal service. 2. I defer the hematological abnormalities to the primary team. 3. I will order a repeat urine culture and sensitivity. 4. I recommend considering changing of the antibiotics to oral penicillin. 5. The patient needs to follow up for urodynamics tests in office. For now, I would currently leave the Candelaria catheter in place. 6. I recommend continuing the Flomax at the present time. 7. At some point, cystoscopic examination will most likely be warranted. Thank you very much for involving us in the care of your patient. We will be happy to follow him along with you as well as an outpatient. Job#: [id number] EV
[2018-02-03] MEDS: QUETIAPINE FUMARATE 25 MG TAB PO SCH (21:06)
[2018-02-03] MEDS: TAMSULOSIN HCL 0.4 MG CAP PO SCH (21:06)
[2018-02-04] VITALS (7 sets, daily range): BP systolic 115–151; BP diastolic 58–70
[2018-02-04] MEDS: PIPER-TAZ 3.375 GM 100 ML IV SCH ×3 (06:46→22:55)
[2018-02-04] MEDS: METOPROLOL TARTRATE 25 MG TAB PO SCH ×3 (06:47→22:56)
[2018-02-04 07:58] LABS: ANION GAP 8.8 mmol/L (8-16); CREATININE, SERUM 1.15 mg/dL (0.72-1.25); MAGNESIUM 1.4 MG/DL (1.3-2.1); POTASSIUM 3.8 mmol/L (3.5-5.1)
[2018-02-04 08:19] LABS: BILIRUBIN,DIRECT 0.3 mg/dL (0.0-0.5)
[2018-02-04] MEDS ORDERED: SODIUM CHLORIDE 0.9% 250ML 250 ML ONE (08:29)
[2018-02-04] MEDS: PANTOPRAZOLE 40 MG 10ML VIAL IV SCH ×2 (09:00→22:55)
[2018-02-04] MEDS: POTASSIUM CHLORIDE 20 MEQ TAB CR PO SCH (09:00)
--- NOTE | 2018-02-04 10:07 | Progress Note ---
DATE: February 04, 2018 RENAL PROGRESS NOTE SUBJECTIVE: Followed for chronic kidney disease, stage 3; also acute kidney injury, which is resolved now. No nausea, no vomiting. No shortness of breath. OBJECTIVE: VITAL SIGNS: Noted. Blood pressure is 123/63, 85 pulse, afebrile. LUNGS: Clear to auscultation bilaterally. CARDIOVASCULAR: S1 and S2. No rub. ABDOMEN: Soft, nontender. EXTREMITIES: No edema. LABS: Sodium 142, potassium 3.8, BUN 20, creatinine 1.15. IMPRESSION AND PLAN: 1. Acute kidney injury, resolved. 2. Chronic kidney disease, stage 2 to 3, at baseline now. 3. Hypertension, stable. 4. Congestive heart failure history. Continue oral Bumex and potassium. Thank you once again. Job#: [id number]
[2018-02-04] MEDS: BUMETANIDE 1 MG TAB PO SCH (13:13)
[2018-02-04] MEDS: TAMSULOSIN HCL 0.4 MG CAP PO SCH (22:55)
[2018-02-05] VITALS: BP 131/68
[2018-02-05 04:00] VITALS: BP 144/68
[2018-02-05 05:29] LABS: ANION GAP 10.5 mmol/L (8-16); CALCIUM 8.1 mg/dL (8.4-10.2); CREATININE, SERUM 1.2 mg/dL (0.72-1.25); MAGNESIUM 1.4 MG/DL (1.3-2.1); PHOSPHORUS 2.6 MG/DL (2.3-4.7); POTASSIUM 3.5 mmol/L (3.5-5.1)
[2018-02-05] MEDS: PIPER-TAZ 3.375 GM 100 ML IV SCH ×3 (06:30→21:48)
[2018-02-05 07:39] VITALS: BP 121/60
[2018-02-05] MEDS: PANTOPRAZOLE 40 MG 10ML VIAL IV SCH ×2 (08:10→21:48)
[2018-02-05] MEDS: BUMETANIDE 1 MG TAB PO SCH (08:10)
[2018-02-05] MEDS: METOPROLOL TARTRATE 25 MG TAB PO SCH ×2 (08:10→21:00)
[2018-02-05] MEDS: POTASSIUM CHLORIDE 20 MEQ TAB CR PO SCH (09:01)
--- NOTE | 2018-02-05 09:19 | Progress Note ---
DATE: February 05, 2018 RENAL PROGRESS NOTE SUBJECTIVE: Followed for acute kidney injury on chronic kidney disease, stage 3. Patient stabilized. His kidney function now is CKD stage 3 baseline. The patient's overall CHF exacerbation has resolved, and he is doing well with oral bumetanide and potassium supplementation along with that. No nausea. No vomiting. No shortness of breath. OBJECTIVE VITAL SIGNS: Noted. Blood pressure is 121/60, 61 heart rate, afebrile. LUNGS: Clear to auscultation bilaterally. CARDIOVASCULAR: S1 and S2. No rub. ABDOMEN: Soft, nontender. EXTREMITIES: No edema. LABS: Reviewed. Creatinine 1.2, potassium 3.5, sodium 141, IMPRESSION AND PLAN 1. Acute kidney injury, resolved. 2. Chronic kidney disease, stage 3 at baseline. Will continue to follow here and in the outpatient setting. 3. Hypertension. Blood pressure is controlled. 4. Congestive heart failure history. Continue oral bumetanide and oral potassium. Thank you once again. Job#: [id number]
--- NOTE | 2018-02-05 11:12 | Consultation ---
DATE OF CONSULTATION: February 05, 2018 I would like to thank Dr. Beckford for asking me to see Mr. Medel in consultation. REASON FOR CONSULTATION 1. Cardiac debility secondary to recent FL with impaired mobility, transverse and ADL ability. 2. The patient with byynkld-mu-erkwb GI bleed with very low H and H. 3. Fjmnm-wh-bxuffuq renal insufficiency. 4. Painful feet. 5. Right shoulder weakness and tender secondary to fall months ago. HISTORY: The patient is an 87-year-old Latin male who came into the hospital with failure to thrive about 2 weeks duration. His BUN and creatinine were quite elevated. He also had hyperkalemia and found to be extremely anemic with a hemoglobin of 3.9. He had elevated troponins and was found to have a myocardial infarction as well. The patient became very limited, and has been in the hospital for quite some time. He has become quite debilitated. I am being asked to evaluate for rehab needs. 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 The patient has had more increased forgetfulness, cardiac arrhythmia, on Eliquis, bladder weakness. The patient is doing in and out catheterizations on his own. SURGERIES: Include pacemaker implantation. ALLERGIES: NONE. FAMILY HISTORY: Negative for premature coronary artery disease. REVIEW OF SYSTEMS GENERAL: No fever. No chills. CARDIAC: Had some shortness of breath, easy fatigability, some chest tightness over the past 2 weeks prior to admission. Easily fatigued. GI: He has had some constipation. : Has chronic problems with his bladder. Has to self-catheterizations secondary to urinary retention. MUSCULOSKELETAL: He had some weakness of the right shoulder. Had fallen about 1-1/2 to 2 months ago. Has had some weakness since. NEUROLOGIC: Has some painful feet. Denies any numbness or tingling. Has had mentation. Has been having some confusion or forgetfulness more recently, but this could be associated with his medical issues. HEMATOLOGIC: Easy bruising. The patient is quite anemic. PSYCHIATRIC: As above. ORAL: No dysphagia. LABS: White cell count 10.25, hemoglobin 8.9, hematocrit 27.7, and platelets of 180,000. Sodium is 141, potassium 3.4, BUN 41, creatinine 1.16. IMAGING: He had a brain CT, which showed no acute intracranial abnormality. Mild chronic microvascular ischemic changes. Renal ultrasound with increased renal echotexture consistent with medical renal disease. HIDA scan revealed a gallbladder with acute cystic duct obstruction. Gallbladder ejection fraction is undefined as no emptying of the gallbladder during the infusion of the . 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 Chest x-ray with interstitial opacities and nonspecific airspace opacities of the lung bases. Suspect some mild pulmonary edema. PHYSICAL EXAMINATION GENERAL: The patient is sitting up in the chair awake and more alert. He says he is not back to his baseline level of function. HEENT: Eyes: Gaze is conjugant. Oral: Tongue is midline. Ears: No acute hearing loss. NECK: No JVD. HEART: Regular rate and rhythm. LUNGS: Diminished breath sounds throughout. ABDOMEN: Nondistended and nontender. EXTREMITIES: He has some limited shoulder range of motion and weakness to the right shoulder compared to the left shoulder. SENSORY: Denies any numbness or tingling to the hands, feet or face. Manual muscle testing demonstrates shoulder flexion and extension is 4/5 on the left and 4-/5 on the right. 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 In the lower extremities, hip flexion and extension is 4-/5 strength. Knee flexion and extension, he has a little bit of knee flexion contractures, which really the hamstrings are tight, but it is mild. Knee flexion and extension essentially is 4+/5 strength. Ankle dorsiflexion and plantar flexion is 4/5 strength. Sensory, however, is very impaired. It took an exorbitant amount of time to do a ice-kb-jsudu, and even when he got up he was still unsteady. Gait is water gait with wider gait with shortened straddling. IMPRESSION 1. Cardiac debility secondary to myocardial infarction. 2. Recent gastrointestinal bleed with anemia. 3. Renal insufficiency. 4. Right shoulder weakness secondary to fall. 5. The patient with possible pleural effusion. 6. Urinary retention. PLAN: Given his overall function level and slow recovery and due to multiple medical issues ongoing, would recommend inpatient rehab as he lives with his , and she is not really able to help him. He has been unsteady on his gait using a walker prior to this. Pretty much his ADLs, he was modified independent, and now he is probably moderate assist. Gait essentially is going to be moderate to min assist depending on his situation. Will follow along with you. Family is to decide if they want inpatient rehab. Thank you once again for allowing me to participate in the care of this very interesting patient. Job#: [id number] RI
[2018-02-05 13:29] VITALS: BP 119/64
[2018-02-05] MEDS ORDERED: ONDANSETRON HCL 4 MG ORAL DISINTEGRATING TAB SL PRN (16:00)
[2018-02-05 20:00] VITALS: BP 109/56
[2018-02-05] MEDS: TAMSULOSIN HCL 0.4 MG CAP PO SCH (21:48)
[2018-02-06] VITALS: BP_SYST 109; BP_SYST 131; BP_DIAS 56; BP_DIAS 66
[2018-02-06 04:00] VITALS: BP 122/66
[2018-02-06] MEDS: PIPER-TAZ 3.375 GM 100 ML IV SCH ×2 (05:24→15:30)
[2018-02-06 06:35] LABS: ANION GAP 9.8 mmol/L (8-16); CALCIUM 7.8 mg/dL (8.4-10.2); CREATININE, SERUM 1.18 mg/dL (0.72-1.25); MAGNESIUM 1.2 MG/DL (1.3-2.1); POTASSIUM 3.8 mmol/L (3.5-5.1)
[2018-02-06 08:19] VITALS: BP 123/64
[2018-02-06] MEDS: POTASSIUM CHLORIDE 20 MEQ TAB CR PO SCH (09:15)
[2018-02-06] MEDS: METOPROLOL TARTRATE 25 MG TAB PO SCH (09:15)
[2018-02-06] MEDS: PANTOPRAZOLE 40 MG 10ML VIAL IV SCH (09:15)
[2018-02-06] MEDS: BUMETANIDE 1 MG TAB PO SCH (09:15)
[2018-02-06] MEDS ORDERED: BENZOCAINE/TETRACAINE/BUTAMBEN AERO SPRAY 56 GM CAN ONE (12:07)
[2018-02-06 12:26] VITALS: BP 130/71
[2018-02-06 15:45] VITALS: BP 158/74
[2018-02-06 15:56] VITALS: BP 117/66
--- NOTE | 2018-02-06 16:12 | Progress Note ---
DATE: February 06, 2018 REASON FOR CONSULTATION: GHANSHYAM on CKD stage 3. SUBJECTIVE: No acute events overnight, lying comfortably in bed. OBJECTIVE VITAL SIGNS: Temperature 96.4, heart rate 63, respiratory rate 18, blood pressure 130/71, O2 sat is 93% on room air. HEENT: NC/AT, EOMI. LUNGS: Clear to auscultation bilaterally. No wheezing or rales. HEART: Regular rate and rhythm. ABDOMEN: Soft, nontender, nondistended. EXTREMITIES: No edema. LABS: Were reviewed in electronic medical records, significant for hemoglobin of 8.8, creatinine of 1.18 with a GFR of 59. MEDICATIONS: Reviewed on electronic medical record. IMAGING: Was reviewed on electronic medical record. ASSESSMENT AND PLAN 1. Acute kidney injury on chronic kidney disease. GHANSHYAM component has resolved. Now at baseline. CKD stage 3. Continue to avoid NSAIDs and contrast. 2. Hypertension. Continue Bumex and metoprolol. 3. Hypokalemia. Continue potassium chloride. 4. DICTATION CUT OFF HERE, length 1 min 34 sec Job#: [id number]
[2018-02-06] MEDS ORDERED: LIDOCAINE HCL 2% LOCAL INJ 5 ML SDV VIAL INJ ONE (18:20)
[2018-02-06] MEDS ORDERED: PROPOFOL IV EMULSION 10 MG/ML 20 ML VIAL ONE (18:20)
--- NOTE | 2018-02-06 19:08 | Discharge Summary ---
FINAL DIAGNOSES 1. Acute blood loss anemia. 2. Cardiomyopathy. 3. Coronary artery disease. 4. Uwxxf-fb-ldrezio kidney injury. 5. Ouz-FZ-uprcxtcru myocardial infarction. 6. History of pacemaker placement. 7. Urinary tract infection with enterococcus. 8. Chronic indwelling Candelaria because of neurogenic bladder. ADMISSION HISTORY AND HOSPITAL COURSE: Mr. Medel is an 87-year-old male who presented to the emergency room with the complaints of dizziness and fall. The patient was found to have a hemoglobin of 3.9. Had a GI bleed. Cardiac markers were elevated and diagnosed with acute uny-XC-gbacvghmo MA with severe anemia. The patient was transfused. Cardiology, nephrology and GI was consulted. The patient started feeling better. Renal failure improved. He has a neurogenic bladder, and hence Dr. Marrero was consulted. Candelaria was kept. The patient will have the Candelaria catheter for now. His hemoglobin has improved. The patient underwent EGD by Dr. Menezes. Dr. Sadler was consulted, and rehab evaluation was done. The patient will be transferred to acute rehabilitation. The patient underwent EGD. The EGD report is still pending. KAY MOORE MD Job#: [id number] ID
== END 2018-02-06 19:11 | disposition other institution (70) | DRG 281 ==
LOC: ER 21:24 → ICU 23:59 → MED/SURG 02-03 21:24
PROVIDERS: ADMIT Internal Medicine Pulmonary Disease; ATTEND Internal Medicine Pulmonary Disease
PROC: 30250N1 (ICD-10-PCS; principal; 2018-01-28)
PROC: 02HV33Z Insertion of Infusion Device into Superior Vena Cava, Percutaneous Approach (ICD-10-PCS; 2018-02-02)
PROC: 0DB78ZX Excision of Stomach, Pylorus, Via Natural or Artificial Opening Endoscopic, Diagnostic (ICD-10-PCS; 2018-02-06)
DX: I21.A1 Myocardial infarction type 2 (principal); I13.0 Hypertensive heart and chronic kidney disease with heart failure and stage 1 through stage 4 chronic kidney disease, or unspecified chronic kidney disease; T83.511A Infection and inflammatory reaction due to indwelling urethral catheter, initial encounter; D62 Acute posthemorrhagic anemia; N17.9 Acute kidney failure, unspecified; E87.2 Acidosis; K92.1 Melena; I50.30 Unspecified diastolic (congestive) heart failure; G93.1 Anoxic brain damage, not elsewhere classified; E87.0 Hyperosmolality and hypernatremia; E11.22 Type 2 diabetes mellitus with diabetic chronic kidney disease; N18.3 Chronic kidney disease, stage 3 (moderate); E78.5 Hyperlipidemia, unspecified; E87.5 Hyperkalemia; R53.1 Weakness; R41.0 Disorientation, unspecified; Z95.0 Presence of cardiac pacemaker; Z95.1 Presence of aortocoronary bypass graft; I25.10 Atherosclerotic heart disease of native coronary artery without angina pectoris; L89.301 Pressure ulcer of unspecified buttock, stage 1; K22.2 Esophageal obstruction; K44.9 Diaphragmatic hernia without obstruction or gangrene; K29.70 Gastritis, unspecified, without bleeding; K29.80 Duodenitis without bleeding; K26.9 Duodenal ulcer, unspecified as acute or chronic, without hemorrhage or perforation; R80.9 Proteinuria, unspecified; E83.51 Hypocalcemia; R33.9 Retention of urine, unspecified
CPT/HCPCS: 36415; 36569; 43239; 51700; 70450; 71045; 76705; 76770; 78227; 80048; 80053; 80061; 80076; 81001; 82270; 82550; 82553; 82570; 82728; 82948; 83540; 83605; 83735; 83880; 84100; 84156; 84300; 84443; 84466; 84484; 85025; 85610; 85730; 86850; 86900; 86920; 87086; 87186; 88305; 88312; 93005; 93306; 96361; 96367; 96372; 97139; 99285; A9537; J1630; J1756; J2001; J2405; J2543; J2805; J7030; J7050; P9016

== ENCOUNTER 2018-07-15 07:36 | Inpatient (IN) | payer MEDICARE ==
[2018-07-10 14:24] LABS: BASOPHILS # (AUTO) 0.1 (0.0-0.1); BASOPHILS % 0.6 % (0.0-1.0); EOSINOPHILS # (AUTO) 0.2 (0.0-0.4); EOSINOPHILS % 1.9 % (0.0-6.0); HEMATOCRIT 41.8 % (38.2-49.6); HEMOGLOBIN 13.2 g/dL (14.0-18.0); LYMPHOCYTES % 21.5 % (18.0-39.1); MEAN CORPUSCULAR HEMOGLOBIN 27.2 pg (28-32); MEAN CORPUSCULAR HGB CONC 31.6 g/dL (31-35); MONOCYTES # (AUTO) 0.7 (0.2-0.8); MONOCYTES % 7.1 % (4.4-11.3); NEUTROPHILS # (AUTO) 6.4 (2.1-6.9); NEUTROPHILS % 68.4 % (38.7-80.0); PLATELET COUNT 201 x10e3/uL (140-360); RED BLOOD COUNT 4.86 x10e6/uL (4.3-5.7); RED CELL DISTRIBUTION WIDTH 19.2 % (11.7-14.4)
--- NOTE | 2018-07-10 14:24 | Diagnostic Imaging Report ---
Frontal and lateral views of the chest. HISTORY: Preop, prostate surgery COMPARISON: Chest radiographs February 02, 2018 and January 30, 2018 DISCUSSION: Interval removal of the right upper extremity PICC line. Stable dual-lead implanted cardiac device. Lungs: Interval decreased pulmonary interstitial markings and mildly decreased prominent central pulmonary vasculature. No evidence of a consolidative pneumonia or pulmonary alveolar edema. Improved aeration of the lung bases. Pleura: No residual pleural effusion or pneumothorax. Heart and mediastinum: The cardiomediastinal silhouette appears unremarkable. Bones: Diffusely decreased mineralization of the osseous structures limits bone detail. Multiple median sternotomy wires. IMPRESSION: 1. Resolved pulmonary edema and bilateral pleural effusions. 2. No acute radiographic abnormality. Signed by: Dr. Gaudencio Correa D.O., M.M.M. on 07/10/2018 2:21 PM
[~2018-07-15] VITALS: Ht 165.1 cm; Wt 57.8 kg
[~2018-07-15 07:36] MED LIST changes: +ATORVASTATIN CA10 MG PO; +ELIQUIS PO; +FERROUS SULFATE PO; +FLOMAX0.4 MG PO; +HYDRALAZINE HCL25 MG PO; +IOPAMIDOL 610MG/1ML 300 MG/ML VIAL IV ONE; +LOSARTAN POTAS100 MG PO; +METOPROLOL SUCC25 MG PO; +MOBIC15 MG PO; +PEPCID20 MG PO
[2018-07-15] MEDS ORDERED: CEFTRIAXONE SOD 1 GM VIAL ONE (08:43)
[2018-07-15] MEDS ORDERED: GENTAMICIN 80MG/NS 100 ML 200 ML IV ONE (08:43)
[2018-07-15] MEDS ORDERED: METHYLENE BLUE 1% INJ 10 ML VIAL INJ ONE (10:41)
[2018-07-15 13:58] LABS: BASOPHILS % 0.3 % (0.0-1.0); EOSINOPHILS % 0.4 % (0.0-6.0); HEMATOCRIT 41.4 % (38.2-49.6); HEMOGLOBIN 12.9 g/dL (14.0-18.0); LYMPHOCYTES # (AUTO) 2.3 (1.0-3.2); LYMPHOCYTES % 20.2 % (18.0-39.1); MEAN CORPUSCULAR HEMOGLOBIN 27.3 pg (28-32); MEAN CORPUSCULAR HGB CONC 31.2 g/dL (31-35); MEAN CORPUSCULAR VOLUME 87.7 fL (81-99); MONOCYTES # (AUTO) 0.2 (0.2-0.8); MONOCYTES % 1.6 % (4.4-11.3); NEUTROPHILS # (AUTO) 8.7 (2.1-6.9); NEUTROPHILS % 76.9 % (38.7-80.0); PLATELET COUNT 171 x10e3/uL (140-360); RED BLOOD COUNT 4.72 x10e6/uL (4.3-5.7); RED CELL DISTRIBUTION WIDTH 18.6 % (11.7-14.4)
[2018-07-15] MEDS ORDERED: ACETAMINOPHEN/CODEINE 300MG - 30MG TAB PO PRN (15:00)
[2018-07-15 16:27] VITALS: BP 104/56
[2018-07-15] MEDS ORDERED: PHENAZOPYRIDINE HCL 100 MG TAB PO PRN (16:45)
[2018-07-15 17:00] VITALS: BP 104/56
[2018-07-15] MEDS ORDERED: LIDOCAINE HCL 2% LOCAL INJ 5 ML SDV VIAL INJ ONE (19:18)
[2018-07-15] MEDS ORDERED: ONDANSETRON HCL INJ 2 MG/ML VIAL ONE (19:18)
[2018-07-15] MEDS ORDERED: HYDRALAZINE HCL 20 MG/ML VIAL ONE (19:18)
[2018-07-15] MEDS ORDERED: DEXAMETHASONE SOD PHOS INJ 4 MG/ML VIAL ONE (19:18)
[2018-07-15] MEDS ORDERED: PROPOFOL IV EMULSION 10 MG/ML 20 ML VIAL ONE (19:18)
[2018-07-15] MEDS ORDERED: SEVOFLURANE INHAL SOLN 250 ML PEN BTL ONE (19:18)
[2018-07-15] MEDS ORDERED: FENTANYL CITRATE/PF 100MCG/2 ML INJ ONE (19:54)
[2018-07-15 20:36] VITALS: BP 115/55
[2018-07-15] MEDS: METOPROLOL SUCCINATE 25 MG TAB XL PO SCH (21:00)
[2018-07-15 22:09] VITALS: BP 115/55
[2018-07-15] MEDS: FAMOTIDINE 20 MG TAB PO SCH (22:29)
[2018-07-15] MEDS: ATORVASTATIN 10 MG TAB PO SCH (22:29)
[2018-07-15] MEDS: GENTAMICIN 80MG/NS 100 ML 100 ML IV SCH (22:45)
[2018-07-16] VITALS (8 sets, daily range): BP systolic 94–158; BP diastolic 52–72
[2018-07-16 05:53] LABS: BASOPHILS % 0.1 % (0.0-1.0); HEMATOCRIT 33.4 % (38.2-49.6); HEMOGLOBIN 10.6 g/dL (14.0-18.0); LYMPHOCYTES # (AUTO) 1.2 (1.0-3.2); MEAN CORPUSCULAR HEMOGLOBIN 27.5 pg (28-32); MEAN CORPUSCULAR HGB CONC 31.7 g/dL (31-35); MEAN CORPUSCULAR VOLUME 86.8 fL (81-99); MONOCYTES # (AUTO) 0.6 (0.2-0.8); MONOCYTES % 5.2 % (4.4-11.3); NEUTROPHILS # (AUTO) 9.7 (2.1-6.9); NEUTROPHILS % 84.4 % (38.7-80.0); PLATELET COUNT 171 x10e3/uL (140-360); RED BLOOD COUNT 3.85 x10e6/uL (4.3-5.7); RED CELL DISTRIBUTION WIDTH 19.2 % (11.7-14.4)
[2018-07-16 06:26] LABS: ANION GAP 11.1 mmol/L (8-16); BLOOD UREA NITROGEN 21 mg/dL (7-26); BUN/CREATININE RATIO 23 (6-25); CALCIUM 7.9 mg/dL (8.4-10.2); CARBON DIOXIDE 16 mmol/L (22-29); CHLORIDE 114 mmol/L (98-107); CREATININE, SERUM 0.92 mg/dL (0.72-1.25); EST GLOMERULAR FILTRATION RATE > 60 ML/MIN (60-); GLUCOSE 119 mg/dL (74-118); POTASSIUM 4.1 mmol/L (3.5-5.1); SODIUM 137 mmol/L (136-145)
[2018-07-16] MEDS: GENTAMICIN 80MG/NS 100 ML 100 ML IV SCH ×3 (06:53→22:18)
[2018-07-16] MEDS ORDERED: FERROUS SULFATE 65 MG PO SCH (09:00)
[2018-07-16] MEDS: TRIMETHOPRIM/SULFAMETHOXAZOLE 160-800 MG TAB PO SCH ×2 (09:30→21:51)
[2018-07-16] MEDS: FERROUS SULFATE 325 MG TAB PO SCH (09:30)
[2018-07-16] MEDS: TAMSULOSIN HCL 0.4 MG CAP PO SCH (09:55)
[2018-07-16] MEDS: METOPROLOL SUCCINATE 25 MG TAB XL PO SCH ×2 (21:00→23:30)
[2018-07-16] MEDS: ATORVASTATIN 10 MG TAB PO SCH (21:51)
[2018-07-16] MEDS: FAMOTIDINE 20 MG TAB PO SCH (21:51)
[2018-07-17 05:00] VITALS: BP 123/59
[2018-07-17] MEDS: GENTAMICIN 80MG/NS 100 ML 100 ML IV SCH ×3 (05:46→22:01)
[2018-07-17 05:48] LABS: BASOPHILS % 0.3 % (0.0-1.0); EOSINOPHILS # (AUTO) 0.1 (0.0-0.4); EOSINOPHILS % 0.6 % (0.0-6.0); HEMATOCRIT 34.4 % (38.2-49.6); HEMOGLOBIN 10.8 g/dL (14.0-18.0); LYMPHOCYTES # (AUTO) 1.8 (1.0-3.2); LYMPHOCYTES % 18.6 % (18.0-39.1); MEAN CORPUSCULAR HEMOGLOBIN 27.8 pg (28-32); MEAN CORPUSCULAR HGB CONC 31.4 g/dL (31-35); MEAN CORPUSCULAR VOLUME 88.4 fL (81-99); MONOCYTES # (AUTO) 0.6 (0.2-0.8); NEUTROPHILS # (AUTO) 7.2 (2.1-6.9); PLATELET COUNT 149 x10e3/uL (140-360); RED BLOOD COUNT 3.89 x10e6/uL (4.3-5.7); RED CELL DISTRIBUTION WIDTH 19.5 % (11.7-14.4)
[2018-07-17 06:09] LABS: ANION GAP 11.4 mmol/L (8-16); BLOOD UREA NITROGEN 18 mg/dL (7-26); BUN/CREATININE RATIO 18 (6-25); CALCIUM 8.1 mg/dL (8.4-10.2); CARBON DIOXIDE 20 mmol/L (22-29); CHLORIDE 114 mmol/L (98-107); CREATININE, SERUM 0.98 mg/dL (0.72-1.25); EST GLOMERULAR FILTRATION RATE > 60 ML/MIN (60-); GLUCOSE 83 mg/dL (74-118); POTASSIUM 4.4 mmol/L (3.5-5.1); SODIUM 141 mmol/L (136-145)
[2018-07-17 07:56] VITALS: BP 132/70
[2018-07-17] MEDS: TRIMETHOPRIM/SULFAMETHOXAZOLE 160-800 MG TAB PO SCH ×2 (08:36→20:44)
[2018-07-17] MEDS: TAMSULOSIN HCL 0.4 MG CAP PO SCH (08:36)
[2018-07-17] MEDS: FERROUS SULFATE 325 MG TAB PO SCH (08:36)
[2018-07-17 11:56] VITALS: BP 102/55
[2018-07-17] MEDS ORDERED: SODIUM CHLORIDE 0.9% 250ML 250 ML ONE (14:16)
[2018-07-17 16:08] VITALS: BP 105/54
[2018-07-17 20:00] VITALS: BP 121/56
[2018-07-17] MEDS: ATORVASTATIN 10 MG TAB PO SCH (20:44)
[2018-07-17] MEDS: FAMOTIDINE 20 MG TAB PO SCH (20:44)
[2018-07-17] MEDS: METOPROLOL SUCCINATE 25 MG TAB XL PO SCH (20:44)
[2018-07-18] VITALS (8 sets, daily range): BP systolic 121–159; BP diastolic 56–74
--- NOTE | 2018-07-18 01:50 | History and Physical ---
PRIMARY CARE PHYSICIAN: Dr. Bentley Soto HISTORY OF PRESENT ILLNESS: Mr. Medel states that he first started having issues with his prostate about 2 years ago when he unable to fully empty his bladder. PAST MEDICAL HISTORY: Includes acute renal failure, recurrent urinary tract infection, benign prostatic hypertrophy, urinary catheter, zwru-wiaxguhorujondw-cstdsfqdd, hyperlipidemia, gastroesophageal reflux disease, coronary artery disease, hypertension, and cardiac dysrhythmia. PAST SURGICAL HISTORY: Includes permanent pacemaker placement and coronary artery bypass graft x1 vessel. PAST FAMILY HISTORY: He denies any significant past family history. SOCIAL HISTORY: He denies any use of tobacco, alcohol, or illicit drugs. 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 He is ambulatory with a rolling walker. ALLERGIES: NO KNOWN ALLERGIES. HOME MEDICATIONS: See reconciliation. REVIEW OF SYSTEMS GENERAL: Patient denies fatigue or malaise. He does have generalized weakness. HEENT: Denies any visual complaints. No complaints of sore throat or trouble swallowing. CARDIOVASCULAR: No complaints of chest pain, palpitations, syncope, or near syncope. PULMONARY: Denies any pleuritic chest pain. No complaints of shortness of breath, cough, or phlegm. GASTROINTESTINAL: Denies any nausea, vomiting, diarrhea, or constipation. No melena. GENITOURINARY: Currently no complaints of dysuria. MUSCULOSKELETAL: No complaints of back pain or joint pain. ENDOCRINE: Negative for diabetes. HEMATOLOGY: Denies any bleeding or bruising. ID: No known history of HIV or immunodeficiency. NEUROLOGIC: Denies any focal weakness, numbness, or tingling. No history of seizures. PHYSICAL EXAMINATION GENERAL: Patient is well-nourished, well-developed gentleman, in no apparent distress, lying supine in bed. VITAL SIGNS: Temperature 98.5, heart rate 61, blood pressure 105/54, respirations 18, oxygen saturation 97%, height 5 feet 5 inches, weight 135 pounds, and BMI 22.46. HEENT: Pupils are equal, round, and reactive to light. Extraocular eye movements intact. Oropharynx is clear. Atraumatic, normocephalic. NECK: Supple. No lymphadenopathy, thyromegaly, or JVD. CARDIOVASCULAR: Regular rate and rhythm. No murmur. LUNGS: Air entry bilaterally. Lungs are clear to auscultation. Respiratory pattern even and unlabored. ABDOMEN: Bowel sounds are present. Soft, nontender. He does have a Candelaria catheter in place. EXTREMITIES: No clubbing, cyanosis, or notable swelling. No palpable edema. INTEGUMENTARY: No obvious lesions noted. NEUROLOGIC: GCS 15. Nonfocal. Alert and oriented x4. PSYCHIATRIC: Normal mood. LABORATORY/IMAGING DATA: Sodium 141, potassium 4.4, chloride 114, CO2 of 20, BUN 18, and creatinine 0.98. Glomerular filtration rate greater than 60. Calcium 8.1 and glucose 83. WBC is 9.7, hemoglobin 10.8, hematocrit 34.4, platelets 149,000, and neutrophils 74. No urinalysis or urine culture and sensitivity noted. Chest x-ray was completed on July 10, which showed resolved pulmonary edema and bilateral pleural effusions. A 12-lead EKG was completed on July 10, which showed AV sequential or dual-chamber electronic pacemaker with a ventricular rate of 60. ASSESSMENT AND PLAN 1. Prostatism/benign prostatic hypertrophy with urinary retention and catheter dependence, status post transurethral resection of prostate, cystoscopy, and retrograde pyelograms 07/15/[address] Sammy Marrero. Continue care per urology. According to the nurse, the patient has had clear yellow urine without clots per the registered nurse with flushing of the Candelaria catheter. There was only one clot earlier today, currently no pain. 2. Urinary tract infection, on gentamicin IV and p.o. Bactrim. 3. Hypertension, complicated by coronary artery disease. Continue home dose of metoprolol. Also monitor blood pressure. 4. Coronary artery disease. History of coronary artery bypass graft x1 vessel, permanent pacemaker placement. Continue atorvastatin and monitor for any chest pain. 5. Hyperlipidemia. Continue atorvastatin. 6. Prophylaxis. Continue Pepcid for peptic ulcer disease prophylaxis, sequential compression devices for deep venous thrombosis prophylaxis. Dictated by: Hermelindo Ho NP Job#: [id number] RTY
[2018-07-18 05:52] LABS: BASOPHILS % 0.5 % (0.0-1.0); EOSINOPHILS # (AUTO) 0.1 (0.0-0.4); EOSINOPHILS % 1.9 % (0.0-6.0); HEMATOCRIT 32.9 % (38.2-49.6); HEMOGLOBIN 10.7 g/dL (14.0-18.0); LYMPHOCYTES # (AUTO) 1.5 (1.0-3.2); LYMPHOCYTES % 20.7 % (18.0-39.1); MEAN CORPUSCULAR HEMOGLOBIN 27.2 pg (28-32); MEAN CORPUSCULAR HGB CONC 32.5 g/dL (31-35); MEAN CORPUSCULAR VOLUME 83.7 fL (81-99); MONOCYTES # (AUTO) 0.5 (0.2-0.8); MONOCYTES % 6.6 % (4.4-11.3); NEUTROPHILS # (AUTO) 5.2 (2.1-6.9); NEUTROPHILS % 69.9 % (38.7-80.0); PLATELET COUNT 160 x10e3/uL (140-360); RED BLOOD COUNT 3.93 x10e6/uL (4.3-5.7); RED CELL DISTRIBUTION WIDTH 19.4 % (11.7-14.4)
[2018-07-18] MEDS: GENTAMICIN 80MG/NS 100 ML 100 ML IV SCH ×3 (05:52→16:00)
[2018-07-18 06:17] LABS: ANION GAP 11.9 mmol/L (8-16); BLOOD UREA NITROGEN 15 mg/dL (7-26); BUN/CREATININE RATIO 15 (6-25); CALCIUM 8.3 mg/dL (8.4-10.2); CARBON DIOXIDE 21 mmol/L (22-29); CHLORIDE 110 mmol/L (98-107); CREATININE, SERUM 0.99 mg/dL (0.72-1.25); EST GLOMERULAR FILTRATION RATE > 60 ML/MIN (60-); GLUCOSE 88 mg/dL (74-118); MAGNESIUM 1.4 MG/DL (1.3-2.1); PHOSPHORUS 2.9 MG/DL (2.3-4.7); POTASSIUM 3.9 mmol/L (3.5-5.1); SODIUM 139 mmol/L (136-145)
[2018-07-18] MEDS: TRIMETHOPRIM/SULFAMETHOXAZOLE 160-800 MG TAB PO SCH ×2 (08:50→21:23)
[2018-07-18] MEDS: FERROUS SULFATE 325 MG TAB PO SCH (08:50)
[2018-07-18] MEDS: TAMSULOSIN HCL 0.4 MG CAP PO SCH (08:50)
[2018-07-18] MEDS ORDERED: ASCORBIC ACID 500 MG TAB PO SCH (09:00)
[2018-07-18] MEDS ORDERED: MAGNESIUM SULFATE 2GM/50ML 50 ML IV ONE (21:00)
[2018-07-18] MEDS: FAMOTIDINE 20 MG TAB PO SCH (21:23)
[2018-07-18] MEDS: ASCORBIC ACID 500 MG TAB PO SCH (21:23)
[2018-07-18] MEDS: METOPROLOL SUCCINATE 25 MG TAB XL PO SCH (21:23)
[2018-07-18] MEDS: ATORVASTATIN 10 MG TAB PO SCH (21:23)
[2018-07-19] VITALS (10 sets, daily range): BP systolic 91–150; BP diastolic 48–78
[2018-07-19] MEDS: GENTAMICIN 80MG/NS 100 ML 100 ML IV SCH ×3 (06:01→21:40)
[2018-07-19 06:14] LABS: BASOPHILS % 0.4 % (0.0-1.0); EOSINOPHILS # (AUTO) 0.2 (0.0-0.4); EOSINOPHILS % 2.6 % (0.0-6.0); HEMATOCRIT 34.9 % (38.2-49.6); HEMOGLOBIN 11.3 g/dL (14.0-18.0); LYMPHOCYTES # (AUTO) 1.4 (1.0-3.2); LYMPHOCYTES % 19.2 % (18.0-39.1); MEAN CORPUSCULAR HEMOGLOBIN 27.1 pg (28-32); MEAN CORPUSCULAR HGB CONC 32.4 g/dL (31-35); MEAN CORPUSCULAR VOLUME 83.7 fL (81-99); MONOCYTES # (AUTO) 0.4 (0.2-0.8); MONOCYTES % 5.1 % (4.4-11.3); NEUTROPHILS # (AUTO) 5.3 (2.1-6.9); NEUTROPHILS % 72.3 % (38.7-80.0); PLATELET COUNT 177 x10e3/uL (140-360); RED BLOOD COUNT 4.17 x10e6/uL (4.3-5.7); RED CELL DISTRIBUTION WIDTH 19.3 % (11.7-14.4)
[2018-07-19 06:39] LABS: BLOOD UREA NITROGEN 18 mg/dL (7-26); BUN/CREATININE RATIO 16 (6-25); CALCIUM 8.6 mg/dL (8.4-10.2); CARBON DIOXIDE 21 mmol/L (22-29); CHLORIDE 108 mmol/L (98-107); CREATININE, SERUM 1.11 mg/dL (0.72-1.25); EST GLOMERULAR FILTRATION RATE > 60 ML/MIN (60-); GLUCOSE 91 mg/dL (74-118); SODIUM 140 mmol/L (136-145)
[2018-07-19] MEDS: TAMSULOSIN HCL 0.4 MG CAP PO SCH (09:30)
[2018-07-19] MEDS: ASCORBIC ACID 500 MG TAB PO SCH (09:30)
[2018-07-19] MEDS: FERROUS SULFATE 325 MG TAB PO SCH (09:30)
[2018-07-19] MEDS: TRIMETHOPRIM/SULFAMETHOXAZOLE 160-800 MG TAB PO SCH ×2 (09:30→21:40)
[2018-07-19] MEDS ORDERED: POLYETHYLENE GLYCOL 3350 17 GM PACK PO PRN (13:00)
[2018-07-19] MEDS ORDERED: LACTULOSE SYRUP 20 GM/30 ML UDC PO PRN (13:00)
[2018-07-19] MEDS ORDERED: TYLENOL WITH C1 EACH PO (14:36)
[2018-07-19] MEDS ORDERED: CIPRO500 MG PO (14:38)
[2018-07-19] MEDS ORDERED: TYLENOL # 31 EA PO (15:57)
[2018-07-19] MEDS ORDERED: ASCORBIC ACID500 MG PO (15:57)
--- NOTE | 2018-07-19 19:22 | Diagnostic Imaging Report ---
EXAMINATION: Head CT HISTORY: Status post fall, trauma, pain COMPARISON: Head CT/ TECHNIQUE: Multidetector axial images were obtained with, without contrast from the foramen magnum to the vertex . The images were reconstructed using brain and bone algorithms. Thin section brain images were reformatted into coronal and sagittal planes. Intravenous contrast: None. Image quality: Motion/streaking artifact limits the evaluation of the skull base and posterior cranial fossa. Dose modulation, iterative reconstruction, and/or weight based adjustment of the mA/kV was utilized to reduce the radiation dose to as low as reasonably achievable. FINDINGS: Parenchyma: 1. Persistent mild chronic microvascular ischemic changes. 2. No mass or hemorrhage. No CT evidence of acute territorial vascular insult. Extra-axial spaces:No abnormal density. No extra-axial fluid collections . Unchanged anterior midline benign) without significant mass effect. Brain volume: Mild generalized volume loss Ventricles: Stable mild ventriculomegaly. Arteries: No density suggestive of thrombus. Dural sinuses: No abnormal density. Extra-axial spaces: No abnormal density. Foramen magnum: No mass, Chiari malformation, or basilar invagination. Sella: No obvious mass. Paranasal/mastoid sinuses: Imaged portions unremarkable. Skull/Scalp: No lytic or blastic lesions. No fractures. IMPRESSION: 1. No acute post traumatic intracranial abnormalities, particularly no hemorrhage. 2. Persistent mild chronic microvascular ischemic changes and volume loss. Signed by: Dr. Heather Crow M.D. on 07/19/2018 7:19 PM
[2018-07-19] MEDS: ATORVASTATIN 10 MG TAB PO SCH (21:40)
[2018-07-19] MEDS: METOPROLOL SUCCINATE 25 MG TAB XL PO SCH (21:40)
[2018-07-19] MEDS: FAMOTIDINE 20 MG TAB PO SCH (21:40)
[2018-07-20] VITALS: BP 108/52
[2018-07-20] MEDS: ASCORBIC ACID 500 MG TAB PO SCH ×2 (01:18→08:45)
--- NOTE | 2018-07-20 01:40 | Discharge Summary ---
DATE OF SERVICE: 07/19/2018 PRIMARY CARE PHYSICIAN: Dr. Grupo Soto PERTINENT HISTORY AND PHYSICAL FINDINGS: Mr. Medel is a pleasant 88-year-old male that had come into [facility] complaining of prostate problems, which began about 2 years ago, when he was unable to fully empty his bladder. PAST MEDICAL HISTORY: Acute renal failure and a recurrent urinary tract infection, benign prostatic hypertrophy, self-catheterization with straight cath of urinary catheters, dependent on this, hyperlipidemia, gastroesophageal reflux disease, coronary artery disease, hypertension, and cardiac dysrhythmia. PAST SURGICAL HISTORY: Permanent pacemaker placement, coronary artery bypass graft times 1 vessel. ADMISSION DIAGNOSES 1. Prostatism/benign prostatic hypertrophy with urinary retention and catheter dependence, status post transurethral resection of the prostate, cystoscopy, and retrograde pyelograms on 07/15/[address] Sammy Marrero. 2. Urinary tract infection. Organism not listed. 3. Hypertension, complicated by coronary artery disease. 4. Coronary artery disease, history of coronary artery bypass graft times 1 vessel. 5. History of permanent pacemaker placement. 6. Hyperlipidemia. DISCHARGE DIAGNOSES 1. Prostatism/benign prostatic hypertrophy with urinary retention and catheter dependence, status post transurethral resection of the prostate, cystoscopy, and retrograde pyelogram on 07/15/[address] Sammy Marrero. 2. Hypertension complicated by coronary artery disease. 3. Coronary artery disease with history of coronary artery bypass graft times 1 vessel. 4. History of permanent pacemaker placement. 5. Hyperlipidemia. 6. Hypomagnesemia. 7. Asymptomatic bradycardia. PERTINENT DIAGNOSTICS: On July 10, WBC 9.35, hemoglobin 13.2, hematocrit 41.8, platelets 201,000, and neutrophils 68.4%, absolute neutrophil 6.4. On July 16, sodium 137, potassium 4.1, chloride 114, CO2 16, BUN 21, creatinine 0.92, GFR greater than 60, glucose 119, calcium 7.9. On July 18, phosphorus 2.9, magnesium 1.4. Chest x-ray completed on July 10, showed resolved pulmonary edema and bilateral pleural effusions. A 12-lead EKG was completed on July 10, which showed AV sequential or dual-chamber electronic pacemaker with a ventricular rate of 60 beats per minute. CONSULTING PHYSICIANS: Dr. Sammy Marrero. Postprocedure, the patient had a Candelaria catheter, which was irrigated per urology recommendations. The patient did have some hematuria, which was improving. The urine was becoming more clear. The patient gradually improved. The Candelaria catheter was removed per urology service on her bed July 18. The patient's pain was controlled, and gentamicin IV and p.o. Bactrim were used for the urinary tract infection. Home medications for hypertension and hyperlipidemia were used. Magnesium sulfate was given IV for low magnesium level and also, the patient did complain of generalized weakness. However, on both occasions denied dysuria or pain. Today, he has no new complaints. Still denies dysuria or pain. PHYSICAL EXAMINATION: Unchanged from yesterday. DISPOSITION: Home without home health. No DME required. DIET: He is to discharge on a regular diet. ACTIVITY LEVEL: As tolerated. FOLLOWUP 1. Follow up with PCP in 1-2 weeks. 2. Follow up with urology as directed. Dictated by: JOSEPH Espinoza Job#: [id number] CQ
[2018-07-20 04:00] VITALS: BP 104/55
[2018-07-20] MEDS: GENTAMICIN 80MG/NS 100 ML 100 ML IV SCH (06:26)
[2018-07-20 07:18] VITALS: BP 121/58
[2018-07-20 08:45] VITALS: BP 121/58
[2018-07-20] MEDS: TAMSULOSIN HCL 0.4 MG CAP PO SCH (08:45)
[2018-07-20] MEDS: TRIMETHOPRIM/SULFAMETHOXAZOLE 160-800 MG TAB PO SCH (08:45)
[2018-07-20] MEDS: FERROUS SULFATE 325 MG TAB PO SCH (08:45)
[2018-07-20 11:45] VITALS: BP 114/54
[2018-07-20] MEDS ORDERED: CIPRO500 MG PO (13:52)
[2018-07-20] MEDS ORDERED: ATORVASTATIN 20 MG TAB PO SCH (21:00)
--- OUTSIDE RECORDS SUMMARY | 2018-07-21 12:30 | XMS REPORT | Clinical Summary ---
Author Author JOSU[facility] Address Unknown Phone Unavailable Care Team Providers Care Neonatal Specialist Name Role Phone PCP Unavailable Allergies No [...] DVT (deep venous thrombosis) ([facility]) 07/02/2015 Anemia 07/02/2015 Cellulitis 07/02/2015 Severe sepsis ([facility]) 06/23/2015 Coronary atherosclerosis of [place] coronary artery 02/20/2015 Nonspecific abnormal unspecified cardiovascular function study 02/20/2015 Social History Tobacco Use Types Packs/Day Years Used Date Never Smoker Alcohol Use Drinks/Week oz/Week Comments No Sex Assigned at Date Recorded Not on file Last Filed Vital Signs Not on file Plan of Treatment Not on file Results Not on fileafter 07/14/2017
--- OUTSIDE RECORDS SUMMARY | 2018-07-21 12:31 | XMS REPORT | Summary of Care ---
Author Organization Unknown Address Unknown Phone Unavailable Encounter [facility](BHARGAVI) [id number] Date(s): 02/19/14 - 02/20/14 [facility] [id number] Discharge Disposition: Home Physician Attending: Jon Mulligan MD Reason for Visit [place] Vital Signs 1 2 3 Most recent to oldest [Reference Range]: 165.1 cm (02/19/14 4:01 PM) 165.1 cm (02/19/14 9:06 AM) Height 98.9 DegF (02/20/14 12:00 PM) 98.4 DegF (02/20/14 8:00 AM) 99.6 DegF *HI* (02/20/14 4:00 AM) Temperature Oral [96.4-99.1 DegF] 166 mmHg *HI* (02/20/14 12:00 PM) 134 mmHg (02/20/14 8:00 AM) 119 mmHg (02/20/14 4:00 AM) Systolic Blood Pressure [90-140 mmHg] 81 mmHg (02/20/14 12:00 PM) 80 mmHg (02/20/14 8:00 AM) 70 mmHg (02/20/14 4:00 AM) Diastolic Blood Pressure [60-90 mmHg] 18 BRMIN (02/20/14 12:00 PM) 16 BRMIN (02/20/14 8:00 AM) 18 BRMIN (02/20/14 4:00 AM) Respiratory Rate [14-20 BRMIN] 116 bpm *HI* (02/20/14 12:00 PM) 105 bpm *HI* (02/20/14 8:00 AM) 99 bpm (02/20/14 4:00 AM) Peripheral Pulse Rate [60-100 bpm] 67.273 kg (02/19/14 4:01 PM) 67.273 kg (02/19/14 9:06 AM) Weight 24.68 m2 (02/19/14 4:01 PM) 24.68 m2 (02/19/14 9:06 AM) Body Mass Index Problem List Condition Effective Dates Status Health Status Informant Hyperlipidemia(Confi Active rmed) Hypertension(Confirm Active ed) Wears Active glasses(Confirmed) Allergies, Adverse Reactions, Alerts Substance Reaction Severity Status NKDA Active Medications acetaminophen 650 mg, 20.3 mL, Route: PO, Drug form: LIQ, Q4H, Dosing Weight 67.273, kg, PRN P ain 1-3/Temp > 100.4 F, Start date: 02/19/14 16:12:00, Duration: 30 day, Stop date: 03/21/14 16:11:00 Notes: Max nljpojnhumviz=[id number]/day (4 gm/day). (Same as: Tylenol) Start Date: 02/19/14 Stop Date: 02/20/14 Status: Discontinued acetaminophen 325 mg, 1 tab, Route: PO, Drug form: TAB, TID, Dosing Weight 67.273, kg, PRN Tim n, Start date: 02/20/14 15:58:00, Duration: 30 day, Stop date: 03/22/14 15:57:00 Notes: Do not exceed 4 gm/day. (Same as: Tylenol) Start Date: 02/20/14 Stop Date: 02/20/14 Status: Discontinued atorvastatin 20 mg, 2 tab, Route: PO, Drug form: TAB, Bedtime, Dosing Weight 67.273, kg, Star t date: 02/20/14 21:00:00, Duration: 30 day, Stop date: 03/21/14 21:00:00 Notes: (Same As: Lipitor) Start Date: 02/20/14 Stop Date: 02/20/14 Status: Canceled atorvastatin 20 mg oral tablet 20 mg=1 tab, PO, Bedtime, # 30 tab, 0 Refill(s) Start Date: 02/19/14 Status: Ordered atropine 0.5 mg, 5 mL, Route: IVP, Drug form: INJ, PRN, PRN Bradycardia, Start date: 02/03 04/18 15:11:00, Duration: 30 day, Stop date: 03/21/14 15:10:00 Start Date: 02/19/14 Stop Date: 02/20/14 Status: Discontinued Ceftin 250 mg oral tablet 250 mg=1 tab, PO, BID, # 14 tab, 0 Refill(s) Start Date: 02/20/14 Status: Ordered cefTRIAXone + Sodium Chloride 0.9% IV 100 mL 1 gm, Route: IVPB, Q24H, Dosing Weight 67.273, kg, Priority: STAT, Start date: 0 02/19/14 16:12:00, Duration: 30 day, Stop date: 03/20/14 16:12:00 Notes: (Same As: Rocephin). Use with 100ml NS mini-bag PLUS and infuse over 30 min Start Date: 02/19/14 Stop Date: 02/20/14 Status: Discontinued docusate 100 mg, 1 cap, Route: PO, Drug form: CAP, BID, Dosing Weight 67.273, kg, PRN Con stipation, Start date: 02/19/14 16:12:00, Duration: 30 day, Stop date: 03/21/14 16:11:00 Notes: (Same as: Colace) (Do Not Crush) Start Date: 02/19/14 Stop Date: 02/20/14 Status: Discontinued Effient 10 mg, PO, Daily, 0 Refill(s) Start Date: 02/19/14 Status: Ordered Flomax 0.4 mg, 1 cap, Route: PO, Drug form: CAP, After Dinner, Dosing Weight 67.273, kg , Start date: 02/20/14 17:00:00, Duration: 30 day, Stop date: 03/21/14 17:00:00 Notes: (Same As: Flomax) "Do Not Crush" Start Date: 02/20/14 Stop Date: 02/20/14 Status: Discontinued Flomax 0.4 mg oral capsule 0.4 mg=1 cap, PO, After Dinner, # 30 cap, 0 Refill(s) Start Date: 02/19/14 Status: Ordered hydrALAZINE 50 mg, Route: PO, ONCE, Dosing Weight 67.273, kg, Start date: 02/19/14 12:12:00, Stop date: 02/19/14 12:12:00 Start Date: 02/19/14 Stop Date: 02/19/14 Status: Completed hydrALAZINE 50 mg oral tablet 50 mg, 1 tab, Route: PO, Drug form: TAB, Q8H, Dosing Weight 67.273, kg, Start da te: 02/20/14 0:00:00, Duration: 30 day, Stop date: 03/21/14 16:00:00 Notes: (Same as: Apresoline) May interfere w/enteral feedings Take With Food Start Date: 02/20/14 Stop Date: 02/20/14 Status: Discontinued hydrALAZINE 50 mg oral tablet 50 mg=1 tab, PO, Q8H, # 120 tab, 0 Refill(s) Start Date: 02/19/14 Status: Ordered losartan 50 mg, 1 tab, Route: PO, Drug form: TAB, Daily, Dosing Weight 67.273, kg, Start date: 02/20/14 9:00:00, Duration: 30 day, Stop date: 03/21/14 9:00:00 Notes: (Same as: Lesly) Start Date: 02/20/14 Stop Date: 02/20/14 Status: Discontinued losartan 50 mg, 1 tab, Route: PO, Drug form: TAB, ONCE, Dosing Weight 67.273, kg, Start d ate: 02/19/14 12:11:00, Stop date: 02/19/14 12:11:00 Notes: (Same as: Lesly) Start Date: 02/19/14 Stop Date: 02/19/14 Status: Completed losartan 50 mg oral tablet 50 mg=1 tab, PO, Daily, # 30 tab, 0 Refill(s) Start Date: 02/19/14 Status: Ordered nitroglycerin 0.4 mg sublingual tablet 0.4 mg, 1 tab, Route: SL, Drug form: TAB, Q5Min, PRN Chest Pain, Start date: 15:11:00, Duration: 30 day, Stop date: 03/21/14 15:10:00 Notes: (Same as:Nitroquick, Nitrostat)"Do Not Crush" Sublingual tablet Start Date: 02/19/14 Stop Date: 02/20/14 Status: Discontinued ondansetron 4 mg, 2 mL, Route: IVP, Drug form: INJ, Q8H, Dosing Weight 67.273, kg, PRN Nause a & Vomiting, Start date: 02/19/14 16:12:00, Duration: 30 day, Stop date: 03/21/14 16:11:00 Notes: (Same as: Zofran) Start Date: 02/19/14 Stop Date: 02/20/14 Status: Discontinued Saline Flush 0.9% 5 ml, Route: IVP, Drug Form: INJ, Dosing Weight 67.273, kg, PRN, PRN Line Flush, Start date: 02/19/14 16:12:00, Duration: 30 day, Stop date: 03/21/14 16:11:00 Notes: (Same as: BD Posiflush) Start Date: 02/19/14 Stop Date: 02/20/14 Status: Discontinued Sodium Chloride 0.9% (Bolus) IV - - 500 mL, 500 ml/hr, Infuse Over: 1 hr, Route: IV, ONCE, Priority: STAT, Dosing We ight 67.273 kg, Start date: 02/19/14 12:13:00, Duration: 1 doses or times, Stop date: 02/19/14 12:13:00 Start Date: 02/19/14 Stop Date: 02/19/14 Status: Completed Sodium Chloride 0.9% IV 1,000 mL 1,000 mL, Rate: 50 ml/hr, Infuse over: 20 hr, Route: IV, Dosing Weight 67.273 kg , Total Volume: 1,000, Start date: 02/19/14 16:12:00, Duration: 30 day, Stop vincenzo e: 03/21/14 16:11:00 Start Date: 02/19/14 Stop Date: 02/20/14 Status: Discontinued warfarin 2.5 mg, 1 tab, Route: PO, Drug form: TAB, W-Bu-Bn-Sa-Concepcion, Dosing Weight 67.273, k g, Start date: 02/20/14 17:00:00, Duration: 30 day, Stop date: 03/20/14 17:00:00 Notes: Nurse to ensure documentation of patient education per anticoagulation po licy.Avoid large intake of vitamin-K containing foods diet.(Same As: Coumadin) Start Date: 02/20/14 Stop Date: 02/20/14 Status: Discontinued warfarin 5 mg, 2 tab, Route: PO, Drug form: TAB, Q--, Dosing Weight 67.273, kg, Start date: 02/21/14 17:00:00, Duration: 30 day, Stop date: 03/21/14 17:00:00 Notes: Nurse to ensure documentation of patient education per anticoagulation po licy.Avoid large intake of vitamin-K containing foods diet.(Same As: Coumadin) Start Date: 02/21/14 Stop Date: 02/20/14 Status: Canceled warfarin 2.5 mg oral tablet 5 mg=2 tab, PO, Q--, # 30 tab, 0 Refill(s) Start Date: 02/19/14 Status: Ordered warfarin 2.5 mg oral tablet 2.5 mg, PO, O-Ep-Qs-, # 30 tab, 0 Refill(s) Start Date: 02/19/14 Status: Ordered Results ELECTROLYTES Most recent to 1 2 oldest [Reference Range]: Sodium Lvl [135-145 142 mEq/L 142 mEq/L mEq/L] (02/20/14 3:34 AM) (02/19/14 11:10 AM) Potassium Lvl 3.6 mEq/L 3.7 mEq/L [3.5-5.1 mEq/L] (02/20/14 3:34 AM) (02/19/14 11:10 AM) Chloride Lvl [95-109 108 mEq/L 107 mEq/L mEq/L] (02/20/14 3:34 AM) (02/19/14 11:10 AM) CO2 [24-32 mEq/L] 22 mEq/L 23 mEq/L *LOW* *LOW* (02/20/14 3:34 AM) (02/19/14 11:10 AM) AGAP [10.0-20.0 15.6 mEq/L 15.7 mEq/L mEq/L] (02/20/14 3:34 AM) (02/19/14 11:10 AM) CHEM PANEL Most recent to 1 2 oldest [Reference Range]: Creatinine Lvl 1.2 mg/dL 1.5 mg/dL [0.5-1.4 mg/dL] (02/20/14 3:34 AM) *HI* (02/19/14 11:10 AM) eGFR 56 mL/min/1.73m2 1 43 mL/min/1.73m2 2 *NA* *NA* (02/20/14 3:34 AM) (02/19/14 11:10 AM) BUN [7-22 mg/dL] 19 mg/dL 24 mg/dL (02/20/14 3:34 AM) *HI* (02/19/14 11:10 AM) B/C Ratio [6-25] 16 (02/19/14 11:10 AM) Glucose Lvl [70-99 101 mg/dL 3 131 mg/dL 4 mg/dL] *HI* *HI* (02/20/14 3:34 AM) (02/19/14 11:10 AM) Total Protein 7.7 g/dL [6.4-8.4 g/dL] (02/19/14 11:10 AM) Albumin Lvl [3.5-5.0 3.5 g/dL g/dL] (02/19/14 11:10 AM) Globulin [2.0-4.0 4.2 g/dL g/dL] *HI* (02/19/14 11:10 AM) A/G Ratio [0.7-1.6] 0.8 (02/19/14 11:10 AM) Calcium Lvl 8.5 mg/dL 9.0 mg/dL [8.5-10.5 mg/dL] (02/20/14 3:34 AM) (02/19/14 11:10 AM) ALT [0-65 unit/L] 13 unit/L (02/19/14 11:10 AM) AST [0-37 unit/L] 19 unit/L (02/19/14 11:10 AM) Alk Phos [39-136 151 unit/L unit/L] *HI* (02/19/14 11:10 AM) Bili Total [0.2-1.3 1.1 mg/dL mg/dL] (02/19/14 11:10 AM) 1Result Comment: The eGFR is calculated using the CKD-EPI formula. In most young, healthy individuals the eGFR will be >90 mL/min/1.73m2. The eGFR declines with age. An eGFR of 60-89 may be normal in some populations, particularly the elderly, for whom the CKD-EPI formula has not been extensively validated. Use of the eGFR is not recommended in the following populations: Individuals with unstable creatinine concentrations, including patients and those with serious co-morbid conditions. Patients with extremes in muscle mass or diet. The data above are obtained from the National Kid[employer] Disease Education Program ( NK[employer]) which additionally recommends that when the eGFR is used in patients with extremes of body mass index for purposes of drug dosing, the eGFR should be mul tiplied by the estimated BMI. 2Result Comment: The eGFR is calculated using the CKD-EPI formula. In most young, healthy individuals the eGFR will be >90 mL/min/1.73m2. The eGFR declines with age. An eGFR of 60-89 may be normal in some populations, particularly the elderly, for whom the CKD-EPI formula has not been extensively validated. Use of the eGFR is not recommended in the following populations: Individuals with unstable creatinine concentrations, including patients and those with serious co-morbid conditions. Patients with extremes in muscle mass or diet. The data above are obtained from the National Kid[employer] Disease Education Program ( NKDEP) which additionally recommends that when the eGFR is used in patients with extremes of body mass index for purposes of drug dosing, the eGFR should be mul tiplied by the estimated BMI. 3Interpretive Data: Adult reference range values reflect the clinical guidelines of the [employer]. 4Interpretive Data: Adult reference range values reflect the clinical guidelines of the [employer]. LIPIDS Most recent to 1 2 oldest [Reference Range]: CHD Risk [4.00-7.30] 3.10 *LOW* (02/19/14 11:10 AM) Chol [<=199 mg/dL] 149 mg/dL (02/19/14 11:10 AM) Trig [<=149 mg/dL] 111 mg/dL (02/19/14 11:10 AM) HDL [>=61 mg/dL] 48 mg/dL *LOW* (02/19/14 11:10 AM) LDL (Calculated) 79 mg/dL [<=99 mg/dL] (02/19/14 11:10 AM) VLDL 22 *NA* (02/19/14 11:10 AM) ANEMIA STUDY Most recent to 1 2 oldest [Reference Range]: Vitamin B12 Lvl 469 pg/mL [254-1320 pg/mL] (02/20/14 3:34 AM) THYROID PANEL Most recent to 1 2 oldest [Reference Range]: TSH [0.360-3.740 1.490 uIU/mL uIU/mL] (02/20/14 3:34 AM) URINE AND STOOL Most recent to 1 2 oldest [Reference Range]: UA Turbidity [Clear] Clear (02/19/14 11:10 AM) UA Color [Yellow] Yellow *NA* (02/19/14 11:10 AM) UA pH [5.0-8.0] 6.0 (02/19/14 11:10 AM) UA Spec Grav 1.012 [<=1.030] (02/19/14 11:10 AM) UA Glucose [Negative Negative mg/dL mg/dL] *NA* (02/19/14 11:10 AM) UA Blood [Negative] Negative (02/19/14 11:10 AM) UA Ketones [Negative Negative mg/dL mg/dL] *NA* (02/19/14 11:10 AM) UA Protein [Negative Negative mg/dL mg/dL] (02/19/14 11:10 AM) UA Urobilinogen <=1.0 mg/dL [0.1-1.0 mg/dL] *NA* (02/19/14 11:10 AM) UA Bili [Negative] Negative *NA* (02/19/14 11:10 AM) UA Leuk Est Negative [Negative] (02/19/14 11:10 AM) UA Nitrite Negative [Negative] (02/19/14 11:10 AM) UA WBC [0-5 /HPF] 12 /HPF *HI* (02/19/14 11:10 AM) UA RBC [0-2 /HPF] 7 /HPF *HI* (02/19/14 11:10 AM) UA Bacteria [None Occasional /HPF Seen /HPF] *NA* (02/19/14 11:10 AM) UA Sq Epi None Seen *NA* (02/19/14 11:10 AM) IMMUNOLOGY Most recent to 1 2 oldest [Reference Range]: RPR [Non Reactive] Reactive 5 *ABN* (02/20/14 3:34 AM) RPR Ttr 1:1 *ABN* (02/20/14 3:34 AM) T pallidum Ab [Non Non Reactive Reactive] (02/20/14 3:34 AM) 5Result Comment: weakly reactive HEMATOLOGY Most recent to 1 2 oldest [Reference Range]: WBC [3.7-10.4 K/CMM] 13.1 K/CMM 14.6 K/CMM *HI* *HI* (02/20/14 3:34 AM) (02/19/14 11:10 AM) RBC [4.70-6.10 4.46 M/CMM 4.57 M/CMM M/CMM] *LOW* *LOW* (02/20/14 3:34 AM) (02/19/14 11:10 AM) Hgb [14.0-18.0 g/dL] 12.7 g/dL 13.1 g/dL *LOW* *LOW* (02/20/14 3:34 AM) (02/19/14 11:10 AM) Hct [42.0-54.0 %] 39.3 % 39.7 % *LOW* *LOW* (02/20/14 3:34 AM) (02/19/14 11:10 AM) MCV [80.0-94.0 fL] 88.2 fL 86.8 fL (02/20/14 3:34 AM) (02/19/14 11:10 AM) MCH [27.0-31.0 pg] 28.5 pg 28.7 pg (02/20/14 3:34 AM) (02/19/14 11:10 AM) MCHC [32.0-36.0 32.3 g/dL 33.0 g/dL g/dL] (02/20/14 3:34 AM) (02/19/14 11:10 AM) RDW [11.5-14.5 %] 15.7 % 15.4 % *HI* *HI* (02/20/14 3:34 AM) (02/19/14 11:10 AM) Platelet [133-450 237 K/CMM 257 K/CMM K/CMM] (02/20/14 3:34 AM) (02/19/14 11:10 AM) MPV [7.4-10.4 fL] 9.4 fL 8.6 fL (02/20/14 3:34 AM) (02/19/14 11:10 AM) Segs [45.0-75.0 %] 86.2 % 82.6 % *HI* *HI* (02/20/14 3:34 AM) (02/19/14 11:10 AM) Lymphocytes 7.8 % 9.4 % [20.0-40.0 %] *LOW* *LOW* (02/20/14 3:34 AM) (02/19/14 11:10 AM) Monocytes [2.0-12.0 5.7 % 7.7 % %] (02/20/14 3:34 AM) (02/19/14 11:10 AM) Eosinophils [0.0-4.0 0.0 % 0.0 % %] (02/20/14 3:34 AM) (02/19/14 11:10 AM) Basophils [0.0-1.0 0.3 % 0.3 % %] (02/20/14 3:34 AM) (02/19/14 11:10 AM) Segs-Bands # 11.3 K/CMM 12.1 K/CMM [1.5-8.1 K/CMM] *HI* *HI* (02/20/14 3:34 AM) (02/19/14 11:10 AM) Lymphocytes # 1.0 K/CMM 1.4 K/CMM [1.0-5.5 K/CMM] (02/20/14 3:34 AM) (02/19/14 11:10 AM) Monocytes # [0.0-0.8 0.7 K/CMM 1.1 K/CMM K/CMM] (02/20/14 3:34 AM) *HI* (02/19/14 11:10 AM) Eosinophils # 0.0 K/CMM 0.0 K/CMM [0.0-0.5 K/CMM] (02/20/14 3:34 AM) (02/19/14 11:10 AM) Basophils # [0.0-0.2 0.0 K/CMM 0.0 K/CMM K/CMM] (02/20/14 3:34 AM) (02/19/14 11:10 AM) RBC Morph Normal (02/19/14 11:10 AM) Plt Morph Normal (02/19/14 11:10 AM) PT [12.0-14.7 14.1 seconds 13.6 seconds seconds] (02/20/14 3:34 AM) (02/19/14 11:10 AM) INR [0.85-1.17] 1.10 6 1.05 7 (02/20/14 3:34 AM) (02/19/14 11:10 AM) PTT [22.9-35.8 24.6 seconds 8 seconds] (02/19/14 11:10 AM) 6Interpretive Data: RECOMMENDED RANGES FOR PROTIME INR: 2.0-3.0 for most medical and surgical thromboembolic states. 2.5-3.5 for artificial heart valves and recurrent embolism. INR SHOULD BE USED ONLY FOR PATIENTS ON STABLE ANTICOAGULANT THERAPY. 7Interpretive Data: RECOMMENDED RANGES FOR PROTIME INR: 2.0-3.0 for most medical and surgical thromboembolic states. 2.5-3.5 for artificial heart valves and recurrent embolism. INR SHOULD BE USED ONLY FOR PATIENTS ON STABLE ANTICOAGULANT THERAPY. 8Interpretive Data: Heparin Therapeutic Range: 57 - 92 Seconds Medications Administered During Your Visit No data available for this section Immunizations No data available for this section Procedures Procedure Type Body Site Date of Procedure Related Diagnosis Pacemaker care management
--- OUTSIDE RECORDS SUMMARY | 2018-07-21 12:31 | XMS REPORT | Continuity of Care Document ---
Author Author [facility] Interface Address Unknown Phone Unavailable Problems Problem Status Onset Date Classification Date Reported Comments Source Contusion of right shoulder, initial encounter 01/01/2018 03/31/2018 [facility] [id number] Active 12/23/2017 [facility] Hematuria, unspecified 11/29/2017 03/03/2018 [facility] R31.0 GROSS HEMATURIA *ADD-ON* Active 11/25/2017 [facility] R31.9 Active 11/10/2017 [facility] DX: R33.9=RETENTION OF URINE, UNSPECIFIE Active 07/16/2016 [facility] SUPRATHERAPEUTIC INR, CELLULITIS TO RLE Active 04/16/2015 [facility] LEG SWELLING Active 04/16/2015 [facility] Dysuria<sup>7</sup> Resolved 03/29/2015 Problem 03/31/2018 Data migrated from [employer] on 04/12/15. [facility] Urinary tract infectious disease<sup>10</sup> Active 03/29/2015 Problem 03/31/2018 Data migrated from [employer] on 04/12/15. [facility] Dysuria<sup>5</sup> Resolved 03/29/2015 Problem 04/22/2015 Data migrated from [employer] on 04/12/15. [facility] Urinary tract infectious disease<sup>8</sup> Active 03/29/2015 Problem 04/22/2015 Data migrated from [employer] on 04/12/15. [facility] Benign prostatic hypertrophy with outflow obstruction<sup>2</sup> Active 10/26/2014 Problem 03/31/2018 Data migrated from [employer] on 03/04/15. [facility] Coronary arteriosclerosis<sup>6</sup> Active 10/26/2014 Problem 03/31/2018 Data migrated from [employer] on 03/04/15. [facility] Coronary arteriosclerosis<sup>4</sup> Active 10/26/2014 Problem 04/22/2015 Data migrated from [employer] on 03/04/15. [facility] Warfarin therapy started<sup>9</sup> Active 10/26/2014 Problem 04/22/2015 Data migrated from [employer] on 03/04/15. [facility] FALL Active 02/19/2014 [facility] FREQUENT FALLS Active 02/19/2014 [facility] Peripheral vascular disease<sup>9</sup> Active 12/07/2013 Problem 03/31/2018 Data migrated from [employer] on 03/04/15[facility] Per[facility] disease<sup>7</sup> Active 12/07/2013 Problem 04/22/2015 Data migrated from [employer] on 03/04/15. [facility] Benign hypertension<sup>1</sup> Active 10/06/1958 Problem 03/31/2018 Data migrated from [employer] on 03/04/15. [facility] Chronic kidney disease stage 3<sup>5</sup> Active 10/06/1959 Problem 03/31/2018 Data migrated from [employer] on 03/04/15. [facility] Hyperlipidemia<sup>8</sup> Active 10/06/1959 Problem 03/31/2018 Data migrated from [employer] on 03/04/15. [facility] Chronic kidney disease stage 3<sup>3</sup> Active 10/06/1959 Problem 04/22/2015 Data migrated from [employer] on 03/04/15. [facility] Hyperlipidemia<sup>6</sup> Active 10/06/1958 Problem 04/22/2015 Data migrated from [employer] on 03/04/15. 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 [facility] Chronic anticoagulation Active Problem 03/31/2018 [facility] S/P CABG x 3 Active Problem 03/31/2018 [facility] Urinary retention Active Problem 03/31/2018 [facility] Other specified disorders of bladder 03/03/2018 [facility] Final: 04/22/2015 [facility] PVD - Peripheral vascular disease Active Problem 04/22/2015 [facility] ABNRML COAGULATION PRFLE Active [facility] RETENTION OF URINE, UNSPECIFIED Active [facility] HEMATURIA, UNSPECIFIED Active [facility] CONTUSION OF RIGHT SHOULDER, INITIAL ENC Active [facility] GROSS HEMATURIA Active [facility] Medications Medication Details Route Status Patient Instructions Ordering Provider Order Date Source Levofloxacin 500 MG Oral Tablet [Levaquin] 500 mg=1 tab, PO, Q24H, X 10 day, # 10 tab, 0 Refill(s), Pharmacy: [email or web address] No Longer Active 12/04/2017 [facility] Aspirin Enteric Coated 81 mg oral delayed release tablet 81 mg=1 tab, PO, Daily, # 30 tab, 0 Refill(s) Active 04/19/2015 [facility] Furosemide 20 MG Oral Tablet [Lasix] 20 mg=1 tab, PO, Daily, # 30 tab, 0 Refill(s) Active 04/19/2015 [facility] Warfarin Sodium 2 MG Oral Tablet [Coumadin] 2 mg=1 tab, PO, Daily, # 30 tab, 0 Refill(s) Active 04/19/2015 [facility] tramadol hydrochloride 50 MG Oral Tablet [Ultram] 1 - 2 tabs, PO, Q4-6H, PRN Pain Score 1-5, X 4 day, # 30 tab, 0 Refill(s) Active 04/19/2015 [facility] Doxycycline 100 MG Oral Capsule 100 mg=1 cap, PO, Daily, X 7 day, # 7 cap, 0 Refill(s) Active 04/19/2015 [facility] Warfarin 2.5 mg, 1 tab, Route: PO, Drug form: TAB, Q5PM, Dosing Weight 65.909, kg, Priority: Routine, Start date: 04/18/15 17:00:00, Duration: 7 day, Stop date: 04/24/15 17:00:00Notes: Nurse to ensure documentat ion of patient education per anticoagulation policy. Avoid large intake of vitamin-K containing foods diet. (Same As: Coumadin) No Longer Active 04/18/2015 [facility] Ancef + Sodium Chloride 0.9% IV 100 mL 1 gm, Route: IVPB, [id number], Dosing Weight 65.909, kg, Start date: 04/18/15 9:00:00, Duration: 30 day, Stop date: 05/18/15 1:00:00Notes: (Same As: Puma Steinberg) MEDICATION WASTE Product Size: 1000 mg Product Wasted: ___ mg No Longer Active 04/18/2015 [facility] Aspirin 81 MG Enteric Coated Tablet 81 mg, 1 tab, Route: PO, Drug form: ECTAB, Daily, Dosing Weight 65.909, kg, Start date: 04/17/15 21:00:00, Duration: 30 day, Stop date: 05/17/15 9:00:00Notes: Do not crush or chew. (Same As: Ecotrin) No Longer Active 04/18/2015 [facility] Lasix 20 mg, 2 mL, Route: IVP, Drug form: INJ, Daily, Dosing Weight 65.909, kg, Priority: NOW, Start date: 04/17/15 20:26:00, Duration: 30 day, Stop date: 05/17/15 9:00:00Notes: (Same as: Lasix) No Longer Active 04/18/2015 [facility] Coumadin 5 mg, 1 tab, Route: PO, Drug form: TAB, Q5PM, Dosing Weight 65.909, kg, Start date: 04/17/15 17:00:00, Duration: 5 day, Stop date: 04/21/15 17:00:00Notes: Nurse to ensure documentation of patient education per anticoagulation policy. Avoid large intake of vitamin-K containing foods diet. (Same As: Coumadin) Inactive 04/17/2015 [facility] Losartan 50 mg, 1 tab, Route: PO, Drug form: TAB, Daily, Dosing Weight 65.909, kg, Start date: 04/17/15 9:00:00, Duration: 30 day, Stop date: 05/16/15 9:00:00Notes: (Same as: Cozaar) No Longer Active 04/17/2015 [facility] Ceftriaxone 1 gm, Route: IVPB, [id number], Dosing Weight 65.909, kg, Start date: 04/17/15 8:00:00, Duration: 30 day, Stop date: 05/16/15 20:00:00Notes: (Same As: Rocephin). Use with 100ml NS mini-bag PLUS and infuse over 30 min MEDICATION WASTE Product Size: 1000 mg Product Wasted: ___ mg Inactive 04/17/2015 [facility] atorvastatin 20 mg, 2 tab, Route: PO, Drug form: TAB, Bedtime, Dosing Weight 65.909, kg, Start date: 04/16/15 21:00:00, Duration: 30 day, Stop date: 05/15/15 21:00:00Notes: (Same As: Lipitor) No Longer Active 04/17/2015 [facility] Docusate Sodium 100 MG Oral Capsule [Colace] 100 mg, 1 cap, Route: PO, Drug form: CAP, BID, Dosing Weight 63.636, kg, Start date: 04/16/15 17:00:00, Duration: 30 day, Stop date: 05/16/15 9:00:00Notes: (Same as: Colace) (Do Not Crush) No Longer Active 04/16/2015 [facility] Niacin 1,000 mg, PO, Bedtime, 0 Refill(s) Active 04/16/2015 [facility] Folic Acid 1 MG Oral Tablet 4 mg=4 tab, PO, Daily, 0 Refill(s) Active 04/16/2015 [facility] Saline Flush 0.9% 10 ml, Route: IVP, Drug Form: INJ, Dosing Weight 63.636, kg, PRN, PRN Line Flush, Start date: 04/16/15 13:14:00, Duration: 30 day, Stop date: 05/16/15 13:13:00Notes: (Same as: BD Posiflush) No Longer Active 04/16/2015 [facility] Morphine 2 mg, 1 mL, Route: IVP, Drug form: INJ, Q3H, Dosing Weight 63.636, kg, PRN Pain Score 4-6, Start date: 04/16/15 13:14:00, Duration: 30 day, Stop date: 05/16/15 13:13:00Notes: (Same as:MORPhine Sulfate) No Longer Active 04/16/2015 [facility] Ondansetron 4 mg, 2 mL, Route: IVP, Drug form: INJ, Q8H, Dosing Weight 63.636, kg, PRN Nausea & Vomiting, Start date: 04/16/15 13:14:00, Duration: 30 day, Stop date: 05/16/15 13:13:00Notes: (Same as: Zofran) MEDICATION WASTE Product Size: 4 mg Product Wasted: ___ mg No Longer Active 04/16/2015 [facility] Ambien 5 mg, 1 tab, Route: PO, Drug form: TAB, Bedtime, Dosing Weight 63.636, kg, PRN Insomnia, Start date: 04/16/15 12:37:00, Duration: 30 day, Stop date: 05/16/15 12:36:00Notes: (Same As: Ambien) No Longer Active 04/16/2015 [facility] Zofran 4 mg, 2 mL, Route: IVP, Drug form: INJ, Q8H, Dosing Weight 63.636, kg, PRN as needed for nausea/vomiting, Priority: STAT, Start date: 04/16/15 12:37:00, Duration: 30 day, Stop date: 05/16/15 12:36:00Notes: (Same as: Zofran) MEDICATION WASTE Product Size: 4 mg Product Wasted: ___ mg Inactive 04/16/2015 [facility] Vitamin K1 5 mg, Route: IVPB, ONCE, Dosing Weight 63.636, kg, Start date: 04/16/15 11:47:00, Duration: 1 doses or times, Stop date: 04/16/15 11:47:00 Inactive 04/16/2015 [facility] Vitamin K1 5 mg, Route: PO, Drug form: TAB, ONCE, Dosing Weight 63.636, kg, Start date: 04/16/15 11:35:00, Duration: 1 doses or times, Stop date: 04/16/15 11:35:00 Inactive 04/16/2015 [facility] Tylenol 650 mg, Route: PO, Drug form: TAB, ONCE, Dosing Weight 63.636, kg, Priority: STAT, Start date: 04/16/15 10:08:00, Stop date: 04/16/15 10:08:00 Inactive 04/16/2015 [facility] Warfarin 5 mg, 2 tab, Route: PO, Drug form: TAB, Q-M-W-F, Dosing Weight 67.273, kg, Start date: 02/21/14 17:00:00, Duration: 30 day, Stop date: 03/21/14 17:00:00Notes: Nurse to ensure documentation of patient ed ucation per anticoagulation policy. Avoid large intake of vitamin-K containing foods diet. (Same As: Coumadin) No Longer Active 02/21/2014 [facility] atorvastatin 20 mg, 2 tab, Route: PO, Drug form: TAB, Bedtime, Dosing Weight 67.273, kg, Start date: 02/20/14 21:00:00, Duration: 30 day, Stop date: 03/21/14 21:00:00Notes: (Same As: Lipitor) Inactive 02/21/2014 [facility] Warfarin 2.5 mg, 1 tab, Route: PO, Drug form: TAB, W-Pk-Qr-Sa-Concepcion, Dosing Weight 67.273, kg, Start date: 02/20/14 17:00:00, Duration: 30 day, Stop date: 03/20/14 17:00:00Notes: Nurse to ensure documentation of patient education per anticoagulation policy. Avoid large intake of vitamin-K containing foods diet. (Same As: Coumadin) Inactive 02/20/2014 [facility] Flomax 0.4 mg, 1 cap, Route: PO, Drug form: CAP, After Dinner, Dosing Weight 67.273, kg, Start date: 02/20/14 17:00:00, Duration: 30 day, Stop date: 03/21/14 17:00:00Notes: (Same As: Flomax) "Do Not Crush" Inactive 02/20/2014 [facility] Acetaminophen 325 mg, 1 tab, Route: PO, Drug form: TAB, TID, Dosing Weight 67.273, kg, PRN Pain, Start date: 02/20/14 15:58:00, Duration: 30 day, Stop date: 03/22/14 15:57:00Notes: Do not exceed 4 gm/day. (Same as: Tylenol) Inactive 02/20/2014 [facility] Cefuroxime 250 MG Oral Tablet [Ceftin] 250 mg=1 tab, PO, BID, # 14 tab, 0 Refill(s) Active 02/20/2014 [facility] Losartan 50 mg, 1 tab, Route: PO, Drug form: TAB, Daily, Dosing Weight 67.273, kg, Start date: 02/20/14 9:00:00, Duration: 30 day, Stop date: 03/21/14 9:00:00Notes: (Same as: Cozaar) Inactive 02/20/2014 [facility] Hydralazine Hydrochloride 50 MG Oral Tablet 50 mg, 1 tab, Route: PO, Drug form: TAB, Q8H, Dosing Weight 67.273, kg, Start date: 02/20/14 0:00:00, Duration: 30 day, Stop date: 03/21/14 16:00:00Notes: (Same as: Apresoline) May interfere w/enteral feedings Take With Food Inactive 02/20/2014 [facility] Saline Flush 0.9% 5 ml, Route: IVP, Drug Form: INJ, Dosing Weight 67.273, kg, PRN, PRN Line Flush, Start date: 02/19/14 16:12:00, Duration: 30 day, Stop date: 03/21/14 16:11:00Notes: (Same as: BD Posiflush) No Longer Active 02/19/2014 [facility] Sodium Chloride 0.154 MEQ/ML Injectable Solution 1,000 mL, Rate: 50 ml/hr, Infuse over: 20 hr, Route: IV, Dosing Weight 67.273 kg, Total Volume: 1,000, Start date: 02/19/14 16:12:00, Duration: 30 day, Stop date: 03/21/14 16:11:00 No Longer Active 02/19/2014 [facility] Ceftriaxone 1 gm, Route: IVPB, Q24H, Dosing Weight 67.273, kg, Priority: STAT, Start date: 02/19/14 16:12:00, Duration: 30 day, Stop date: 03/20/14 16:12:00Notes: (Same As: Rocephin). Use with 100ml NS mini-bag PLUS and infuse over 30 min No Longer Active 02/19/2014 [facility] Docusate 100 mg, 1 cap, Route: PO, Drug form: CAP, BID, Dosing Weight 67.273, kg, PRN Constipation, Start date: 02/19/14 16:12:00, Duration: 30 day, Stop date: 03/21/14 16:11:00Notes: (Same as: Colace) (Do Not Crush) No Longer Active 02/19/2014 [facility] Ondansetron 4 mg, 2 mL, Route: IVP, Drug form: INJ, Q8H, Dosing Weight 67.273, kg, PRN Nausea & Vomiting, Start date: 02/19/14 16:12:00, Duration: 30 day, Stop date: 03/21/14 16:11:00Notes: (Same as: Zofran) No Longer Active 02/19/2014 [facility] Acetaminophen 650 mg, 20.3 mL, Route: PO, Drug form: LIQ, Q4H, Dosing Weight 67.273, kg, PRN Pain 1-3/Temp > 100.4 F, Start date: 02/19/14 16:12:00, Duration: 30 day, Stop date: 03/21/14 16:11:00Notes: Max daxa [id number]/day (4 gm/day). (Same as: Tylenol) No Longer Active 02/19/2014 [facility] nitroglycerin 0.4 mg sublingual tablet 0.4 mg, 1 tab, Route: SL, Drug form: TAB, Q5Min, PRN Chest Pain, Start date: 02/19/14 15:11:00, Duration: 30 day, Stop date: 03/21/14 15:10:00Notes: (Same as:Nitroquick, Nitrostat) "Do Not Crush" Sublingual tablet No Longer Active 02/19/2014 [facility] atropine 0.5 mg, 5 mL, Route: IVP, Drug form: INJ, PRN, PRN Bradycardia, Start date: 02/19/14 15:11:00, Duration: 30 day, Stop date: 03/21/14 15:10:00 No Longer Active 02/19/2014 [facility] warfarin 2.5 mg oral tablet 5 mg=2 tab, PO, Q-M-W-, # 30 tab, 0 Refill(s) Active 02/19/2014 [facility] Effient 10 mg, PO, Daily, 0 Refill(s) Active 02/19/2014 [facility] Tamsulosin hydrochloride 0.4 MG Oral Capsule [Flomax] 0.4 mg=1 cap, PO, After Dinner, # 30 cap, 0 Refill(s) Active 02/19/2014 [facility] Hydralazine Hydrochloride 50 MG Oral Tablet 50 mg=1 tab, PO, Q8H, # 120 tab, 0 Refill(s) Active 02/19/2014 [facility] losartan 50 mg oral tablet 50 mg=1 tab, PO, Daily, # 30 tab, 0 Refill(s) Active 02/19/2014 [facility] atorvastatin 20 mg oral tablet 20 mg=1 tab, PO, Bedtime, # 30 tab, 0 Refill(s) Active 02/19/2014 [facility] Sodium Chloride 0.154 MEQ/ML Injectable Solution 500 mL, 500 ml/hr, Infuse Over: 1 hr, Route: IV, ONCE, Priority: STAT, Dosing Weight 67.273 kg, Start date: 02/19/14 12:13:00, Duration: 1 doses or times, Stop date: 02/19/14 12:13:00 Inactive 02/19/2014 [facility] Hydralazine 50 mg, Route: PO, ONCE, Dosing Weight 67.273, kg, Start date: 02/19/14 12:12:00, Stop date: 02/19/14 12:12:00 Inactive 02/19/2014 [facility] Losartan 50 mg, 1 tab, Route: PO, Drug form: TAB, ONCE, Dosing Weight 67.273, kg, Start date: 02/19/14 12:11:00, Stop date: 02/19/14 12:11:00Notes: (Same as: Lesly) Inactive 02/19/2014 [facility] Allergies, Adverse Reactions, Alerts Substance Category Reaction Severity Reaction type Status Date Reported Comments Source Immunizations Immunization Date Given Site Status Last Updated Comments Source Results Order Name Results Value Reference Range Date Interpretation Comments Source Shoulder series DX Shoulder series DX EXAM: Right Shoulder series DX 3 views DATE: 12/23/2017 4:50 PM CDT INDICATION: - S40.011A Contusion of right shoulder, initial encounter. Shoulder pain. COMPARISON: None. IMPRESSION: No definite gross acute fracture or dislocation detected. Mild degenerative change of the right acromioclavicular joint. SL: [id number] 12/23/2017 - - Read by: Eagle Blevins MD Dictated Date/time: 12/23/17 17:56 Electronically Signed by: Eagle Blevins MD 12/23/17 17:57 FINAL REPORT [facility] URINE AND STOOL POC UA Nit Negative *NA* (12/10/17 11:15 AM) Negative 12/10/2017 [facility] URINE AND STOOL POC UA LeukEst Moderate *ABN* (12/10/17 11:15 AM) Negative 12/10/2017 [facility] URINE AND STOOL POC UA Uro 0.2 EU/dL 0.1 - 1.0 12/10/2017 [facility] URINE AND STOOL POC UA Turbidity Clear *NA* (12/10/17 11:15 AM) Clear 12/10/2017 [facility] URINE AND STOOL POC UA Bili Negative *NA* (12/10/17 11:15 AM) Negative 12/10/2017 [facility] URINE AND STOOL POC UA Ket Negative mg/dL Negative mg/dL 12/10/2017 [facility] URINE AND STOOL POC UA Bld Large *ABN* (12/10/17 11:15 AM) Negative 12/10/2017 [facility] URINE AND STOOL POC UA Glu Negative mg/dL Negative mg/dL 12/10/2017 [facility] URINE AND STOOL POC UA Color Yellow *NA* (12/10/17 11:15 AM) Yellow 12/10/2017 [facility] URINE AND STOOL POC UA pH 5.5 5.0 - 8.0 12/10/2017 [facility] URINE AND STOOL POC UA Prot 100 mg/dL Negative mg/dL 12/10/2017 [facility] URINE AND STOOL POC UA SG 1.015 <=1.030 12/10/2017 [facility] Retroperitoneal Complete US Retroperitoneal Complete US BILATERAL RENAL ULTRASOUND: HISTORY: Hematuria. FINDINGS: The right kidney is 8.9 cm in length and 3.8 x 3.8 cm in transverse dimension. The left kidney is 9.1 cm in length and 4.0 x 2.7 cm in transverse dimension. There is mild thinning with normal thickness of the renal parenchyma. There is no evidence of cyst, mass, hydronephrosis, or calculi. Satisfactory qualitative color-flow is demonstrated bilaterally. The urinary bladder is distended and thick walled with trabeculation and mild cellule formation, previously demonstrated on the bladder ultrasound of 07/19/2016. The echogenicities in the urine are seen consistent with the debris or blood, with hypoechoic material layering in the dependent bladder which may be clot. The prostate is not visualized. The visible aortoiliac segment and inferior vena cava cava are unremarkable. IMPRESSION: 1. Senescent changes in the kidneys without evidence of hydronephrosis or other significant ultrasound abnormalities. 2. Distended thick-walled bladder with possible hemorrhagic urine and a small amount of clot. [id number] 11/25/2017 - - Read by: Feng Malone MD Dictated Date/time: 11/26/17 09:38 Electronically Signed by: Feng Malone MD 11/26/17 09:47 FINAL REPORT [facility] Bladder US Bladder US BLADDER ULTRASOUND: HISTORY: Urinary retention. FINDINGS: The prevoid volume is 610 mL. The patient was unable to void more than a few drops with a post void volume of 704 mL. There is marked trabeculation of the bladder wall. A few cellules are identified without large diverticula demonstrated. There is focal asymmetric wall thickening in the inferior bladder. No other definite intraluminal mass is demonstrated. Low-level echogenicity in the urine is seen with some layering on the post void images. IMPRESSION: Findings in the bladder consistent with bladder outlet obstruction, with large volume post void residual consistent with urinary retention. There is focal wall thickening in the base of the bladder. Consider cystoscopic evaluation to exclude tumor, if not recently done. [id number] 07/19/2016 - - Read by: Feng Malone MD Dictated Date/time: 07/19/16 15:37 Electronically Signed by: Feng Malone MD 07/19/16 15:43 FINAL REPORT [facility] PANEL eGFR 46 mL/min/1.73m2 04/19/2015 Result Comment: The eGFR is calculated using the [...] from the National Kidney Disease Education Program (NKDEP) which additionally recommends that when the eGFR is used in patients with extremes of body mass index for purposes of drug dosing, the eGFR should be multiplied by the estimated BMI. [facility] CHEM PANEL Glucose Lvl 94 mg/dL 70 - 99 04/19/2015 [facility] CHEM PANEL BUN 27 mg/dL 7 - 22 04/19/2015 [facility] CHEM PANEL Creatinine Lvl 1.4 mg/dL 0.5 - 1.4 04/19/2015 [facility] CHEM PANEL Calcium Lvl 8.1 mg/dL 8.5 - 10.5 04/19/2015 [facility] CHEM PANEL CO2 24 meq/L 24 - 32 04/19/2015 [facility] CHEM PANEL Potassium Lvl 3.8 meq/L 3.5 - 5.1 04/19/2015 [facility] CHEM PANEL Chloride Lvl 106 meq/L 95 - 109 04/19/2015 [facility] CHEM PANEL Sodium Lvl 140 meq/L 135 - 145 04/19/2015 [facility] CHEM PANEL AGAP 13.8 meq/L 10.0 - 20.0 04/19/2015 [facility] MCH 27.3 pg 27.0 - 31.0 04/19/2015 [facility] Hct 28.3 % 42.0 - 54.0 04/19/2015 [facility] MCV 81.9 fL 80.0 - 94.0 04/19/2015 [facility] Hgb 9.4 g/dL 14.0 - 18.0 04/19/2015 [facility] MPV 9.0 fL 7.4 - 10.4 04/19/2015 [facility] RBC 3.45 M/CMM 4.70 - 6.10 04/19/2015 [facility] RDW 16.0 % 11.5 - 14.5 04/19/2015 [facility] Platelet 222 K/CMM 133 - 450 04/19/2015 [facility] MCHC 33.3 g/dL 32.0 - 36.0 04/19/2015 [facility] WBC 8.2 K/CMM 3.7 - 10.4 04/19/2015 [facility] HEMATOLOGY INR 2.86 0.85 - 1.17 04/19/2015 [facility] PT 31.0 s 12.0 - 14.7 04/19/2015 [facility] Basophils # 0.1 K/CMM 0.0 - 0.2 04/19/2015 [facility] Lymphocytes # 2.4 K/CMM 1.0 - 5.5 04/19/2015 [facility] Monocytes # 0.6 K/CMM 0.0 - 0.8 04/19/2015 [facility] HEMATOLOGY Segs-Bands # 4.8 K/CMM 1.5 - 8.1 04/19/2015 [facility] HEMATOLOGY Basophils 0.9 % 0.0 - 1.0 04/19/2015 [facility] HEMATOLOGY Eosinophils # 0.3 K/CMM 0.0 - 0.5 04/19/2015 [facility] HEMATOLOGY Monocytes 7.6 % 2.0 - 12.0 04/19/2015 [facility] HEMATOLOGY Eosinophils 3.8 % 0.0 - 4.0 04/19/2015 [facility] HEMATOLOGY Lymphocytes 29.0 % 20.0 - 40.0 04/19/2015 [facility] HEMATOLOGY Segs 58.7 % 45.0 - 75.0 04/19/2015 [facility] ELECTROLYTES AGAP 11.2 meq/L 10.0 - 20.0 04/18/2015 [facility] ELECTROLYTES eGFR 42 mL/min/1.73m2 04/18/2015 Result Comment: The eGFR is calculated using the [...] from the National Kidney Disease Education Program (NKDEP) which additionally recommends that when the eGFR is used in patients with extremes of body mass index for purposes of drug dosing, the eGFR should be multiplied by the estimated BMI. [facility] ELECTROLYTES Calcium Lvl 8.3 mg/dL 8.5 - 10.5 04/18/2015 [facility] ELECTROLYTES CO2 27 meq/L 24 - 32 04/18/2015 [facility] ELECTROLYTES Potassium Lvl 4.2 meq/L 3.5 - 5.1 04/18/2015 [facility] ELECTROLYTES Chloride Lvl 107 meq/L 95 - 109 04/18/2015 [facility] ELECTROLYTES Sodium Lvl 141 meq/L 135 - 145 04/18/2015 [facility] ELECTROLYTES BUN 26 mg/dL 7 - 22 04/18/2015 [facility] ELECTROLYTES Glucose Lvl 90 mg/dL 70 - 99 04/18/2015 [facility] ELECTROLYTES Creatinine Lvl 1.5 mg/dL 0.5 - 1.4 04/18/2015 [facility] HEMATOLOGY MPV 8.9 fL 7.4 - 10.4 04/18/2015 [facility] HEMATOLOGY Platelet 220 K/CMM 133 - 450 04/18/2015 [facility] HEMATOLOGY RDW 16.6 % 11.5 - 14.5 04/18/2015 [facility] HEMATOLOGY MCH 27.2 pg 27.0 - 31.0 04/18/2015 [facility] MCHC 33.2 g/dL 32.0 - 36.0 04/18/2015 [facility] HEMATOLOGY MCV 81.7 fL 80.0 - 94.0 04/18/2015 [facility] HEMATOLOGY Hgb 9.2 g/dL 14.0 - 18.0 04/18/2015 [facility] HEMATOLOGY Hct 27.8 % 42.0 - 54.0 04/18/2015 [facility] HEMATOLOGY WBC 8.2 K/CMM 3.7 - 10.4 04/18/2015 [facility] HEMATOLOGY RBC 3.40 M/CMM 4.70 - 6.10 04/18/2015 [facility] HEMATOLOGY INR 1.82 0.85 - 1.17 04/18/2015 [facility] HEMATOLOGY PT 21.5 s 12.0 - 14.7 04/18/2015 [facility] HEMATOLOGY Segs 59.7 % 45.0 - 75.0 04/18/2015 [facility] HEMATOLOGY Lymphocytes 25.8 % 20.0 - 40.0 04/18/2015 [facility] HEMATOLOGY Segs-Bands # 4.9 K/CMM 1.5 - 8.1 04/18/2015 [facility] HEMATOLOGY Monocytes # 0.7 K/CMM 0.0 - 0.8 04/18/2015 [facility] HEMATOLOGY Eosinophils # 0.4 K/CMM 0.0 - 0.5 04/18/2015 [facility] HEMATOLOGY Basophils # 0.1 K/CMM 0.0 - 0.2 04/18/2015 [facility] HEMATOLOGY Lymphocytes # 2.1 K/CMM 1.0 - 5.5 04/18/2015 [facility] HEMATOLOGY Basophils 0.9 % 0.0 - 1.0 04/18/2015 [facility] HEMATOLOGY Monocytes 8.6 % 2.0 - 12.0 04/18/2015 [facility] HEMATOLOGY Eosinophils 5.0 % 0.0 - 4.0 04/18/2015 [facility] CHEM PANEL eGFR 42 mL/min/1.73m2 04/17/2015 Result Comment: The eGFR is calculated using the [...] from the National Kidney Disease Education Program (NKDEP) which additionally recommends that when the eGFR is used in patients with extremes of body mass index for purposes of drug dosing, the eGFR should be multiplied by the estimated BMI. [facility] CHEM PANEL Glucose Lvl 89 mg/dL 70 - 99 04/17/2015 [facility] CHEM PANEL Calcium Lvl 8.2 mg/dL 8.5 - 10.5 04/17/2015 [facility] CHEM PANEL BUN 26 mg/dL 7 - 22 04/17/2015 [facility] CHEM PANEL Creatinine Lvl 1.5 mg/dL 0.5 - 1.4 04/17/2015 [facility] CHEM PANEL CO2 20 meq/L 24 - 32 04/17/2015 [facility] CHEM PANEL Chloride Lvl 110 meq/L 95 - 109 04/17/2015 [facility] CHEM PANEL Potassium Lvl 4.4 meq/L 3.5 - 5.1 04/17/2015 [facility] CHEM PANEL Sodium Lvl 141 meq/L 135 - 145 04/17/2015 [facility] CHEM PANEL AGAP 15.4 meq/L 10.0 - 20.0 04/17/2015 [facility] HEMATOLOGY INR 1.48 0.85 - 1.17 04/17/2015 [facility] HEMATOLOGY PT 18.2 s 12.0 - 14.7 04/17/2015 [facility] MCV 83.5 fL 80.0 - 94.0 04/17/2015 [facility] MCH 27.1 pg 27.0 - 31.0 04/17/2015 [facility] MCHC 32.4 g/dL 32.0 - 36.0 04/17/2015 [facility] RDW 16.8 % 11.5 - 14.5 04/17/2015 [facility] Platelet 206 K/CMM 133 - 450 04/17/2015 [facility] HEMATOLOGY MPV 9.1 fL 7.4 - 10.4 04/17/2015 [facility] HEMATOLOGY WBC 8.9 K/CMM 3.7 - 10.4 04/17/2015 [facility] HEMATOLOGY Hct 30.2 % 42.0 - 54.0 04/17/2015 [facility] HEMATOLOGY Hgb 9.8 g/dL 14.0 - 18.0 04/17/2015 [facility] HEMATOLOGY RBC 3.62 M/CMM 4.70 - 6.10 04/17/2015 [facility] HEMATOLOGY Eosinophils 2.5 % 0.0 - 4.0 04/17/2015 [facility] HEMATOLOGY Basophils 0.7 % 0.0 - 1.0 04/17/2015 [facility] HEMATOLOGY Segs-Bands # 5.8 K/CMM 1.5 - 8.1 04/17/2015 [facility] HEMATOLOGY Lymphocytes 23.9 % 20.0 - 40.0 04/17/2015 [facility] HEMATOLOGY Segs 65.3 % 45.0 - 75.0 04/17/2015 [facility] HEMATOLOGY Monocytes 7.6 % 2.0 - 12.0 04/17/2015 [facility] HEMATOLOGY Lymphocytes # 2.1 K/CMM 1.0 - 5.5 04/17/2015 [facility] HEMATOLOGY Eosinophils # 0.2 K/CMM 0.0 - 0.5 04/17/2015 [facility] HEMATOLOGY Monocytes # 0.7 K/CMM 0.0 - 0.8 04/17/2015 [facility] HEMATOLOGY Basophils # 0.1 K/CMM 0.0 - 0.2 04/17/2015 [facility] LIPIDS CHD Risk 2.28 4.00 - 7.30 04/17/2015 [facility] LIPIDS HDL 53 mg/dL >=61 mg/dL 04/17/2015 [facility] LIPIDS VLDL 22 04/17/2015 [facility] LIPIDS LDL (Calculated) 46 mg/dL <=99 mg/dL 04/17/2015 [facility] LIPIDS Chol 121 mg/dL <=199 mg/dL 04/17/2015 [facility] LIPIDS Trig 110 mg/dL <=149 mg/dL 04/17/2015 [facility] CARDIAC ENZYMES BNP 273 pg/mL <=100 pg/mL 04/16/2015 [facility] URINE AND STOOL UA Urobilinogen <=1.0 mg/dL 0.1 - 1.0 04/16/2015 [facility] URINE AND STOOL UA Color Yellow *NA* (04/16/15 6:29 PM) Yellow 04/16/2015 [facility] URINE AND STOOL UA Glucose Negative mg/dL Negative mg/dL 04/16/2015 [facility] URINE AND STOOL UA Turbidity Marked *ABN* (04/16/15 6:29 PM) Clear 04/16/2015 [facility] URINE AND STOOL UA Spec Grav 1.014 <=1.030 04/16/2015 [facility] URINE AND STOOL UA Sq Epi Occasional /LPF Few /LPF 04/16/2015 [facility] URINE AND STOOL UA Leuk Est Small *ABN* (04/16/15 6:29 PM) Negative 04/16/2015 [facility] URINE AND STOOL UA Protein 30 mg/dL Negative mg/dL 04/16/2015 [facility] URINE AND STOOL UA pH 6.0 5.0 - 8.0 04/16/2015 [facility] URINE AND STOOL UA RBC null 0 - 2 04/16/2015 [facility] URINE AND STOOL UA WBC 69 /HPF 0 - 5 04/16/2015 [facility] URINE AND STOOL UA Blood Large *ABN* (04/16/15 6:29 PM) Negative 04/16/2015 [facility] URINE AND STOOL UA Bili Negative *NA* (04/16/15 6:29 PM) Negative 04/16/2015 [facility] URINE AND STOOL UA Ketones Negative mg/dL Negative mg/dL 04/16/2015 [facility] URINE AND STOOL UA Bacteria Occasional /HPF None Seen /HPF 04/16/2015 [facility] URINE AND STOOL UA Nitrite Negative (04/16/15 6:29 PM) Negative 04/16/2015 [facility] Chest 1view DX Chest 1view DX Portable chest: The pacemaker leads are in satisfactory position. The cardiac silhouette is normal in size. There is mild pulmonary venous congestion. The lungs and pleural spaces are otherwise clear. There is no other significant change compared to 02/20/2000 SL:13 04/16/2015 - - Read by: Feng Malone MD Dictated Date/time: 04/16/15 22:36 Electronically Signed by: Feng Malone MD 04/16/15 22:37 FINAL REPORT [facility] HEMATOLOGY PTT 142.5 s 22.9 - 35.8 04/16/2015 Result Comment: Critical Result(s) called to HANANE at _04/16/2015 11:05 by_[facility]. Read back OK. SPECIMEN CHECKED FOR CLOT; SIMILAR RESULTS ON PREVIOUS SPECIMEN [facility] CHEM PANEL Globulin 3.7 g/dL 2.0 - 4.0 04/16/2015 [facility] CHEM PANEL A/G Ratio 0.9 0.7 - 1.6 04/16/2015 [facility] CHEM PANEL B/C Ratio 17 6 - 25 04/16/2015 [facility] CHEM PANEL AST 16 unit/L 0 - 37 04/16/2015 [facility] CHEM PANEL Total Protein 7.0 g/dL 6.4 - 8.4 04/16/2015 [facility] CHEM PANEL ALT 17 unit/L 0 - 65 04/16/2015 [facility] CHEM PANEL Alk Phos 161 unit/L 39 - 136 04/16/2015 [facility] CHEM PANEL Bili Total 0.6 mg/dL 0.2 - 1.3 04/16/2015 [facility] CHEM PANEL Albumin Lvl 3.3 g/dL 3.5 - 5.0 04/16/2015 [facility] Ext Lower Venous Doppler Unilat US Ext Lower Venous Doppler Unilat US HISTORY: Leg pain Right lower extremity venous Doppler ultrasound exam demonstrates normal flow and compressibility of the common femoral, superficial femoral and popliteal venous segments. Normal distal augmentation. IMPRESSION: No evidence for right lower extremity DVT. SL:04/16/2015 - - Read by: Dwaine Horton MD Dictated Date/time: 04/16/15 12:09 Electronically Signed by: Dwaine Horton MD 04/16/15 12:09 FINAL REPORT [facility] Tibia fibula series DX Tibia fibula series DX HISTORY: Cellulitis, pain and swelling. Right tib-fib 2 views. No bony fracture subluxation or lesion. Arterial vascular calcifications within popliteal and tibial arteries. SL:04/16/2015 - - Read by: Dwaine Horton MD Dictated Date/time: 04/16/15 10:06 Electronically Signed by: Dwaine Horton MD 04/16/15 10:06 FINAL REPORT [facility] Knee AP and lateral Knee AP and lateral Left knee, 2 views. HISTORY: Pain. COMPARISON: None available. FINDINGS: No fracture or dislocation is seen. Moderate joint effusion is present. Probable prepatellar soft tissue swelling. Moderate medial compartment degenerative joint space narrowing. Moderate vascular calcification. SL: 02/20/2014 - - Read by: Logan Parker MD Dictated Date/time: 02/20/14 16:51 Electronically Signed by: Logan Parker MD 02/20/14 16:53 FINAL REPORT [facility] ANEMIA STUDY Vitamin B12 Lvl 469 pg/mL 254 - 1320 02/20/2014 [facility] IMMUNOLOGY T pallidum Ab Non Reactive (02/20/14 3:34 AM) Non Reactive 02/20/2014 [facility] IMMUNOLOGY RPR Ttr 1:1 *ABN* (02/20/14 3:34 AM) 02/20/2014 [facility] IMMUNOLOGY RPR Reactive 5 *ABN* (02/20/14 3:34 AM) Non Reactive 02/20/2014 5Result Comment: weakly reactive [facility] ELECTROLYTES AGAP 15.6 meq/L 10.0 - 20.0 02/20/2014 [facility] ELECTROLYTES eGFR 56 mL/min/1.73m2 02/20/2014 1Result Comment: The eGFR is calculated using [...] from the National Kidney Disease Education Program (NKDEP) which additionally recommends that when the eGFR is used in patients with extremes of body mass index for purposes of drug dosing, the eGFR should be multiplied by the estimated BMI. [facility] ELECTROLYTES CO2 22 meq/L 24 - 32 02/20/2014 [facility] ELECTROLYTES Calcium Lvl 8.5 mg/dL 8.5 - 10.5 02/20/2014 [facility] ELECTROLYTES Chloride Lvl 108 meq/L 95 - 109 02/20/2014 [facility] ELECTROLYTES Glucose Lvl 101 mg/dL 70 - 99 02/20/2014 3Interpretive Data: Adult reference range values reflect the clinical guidelines of the [place] [employer]. [facility] ELECTROLYTES BUN 19 mg/dL 7 - 22 02/20/2014 [facility] ELECTROLYTES Potassium Lvl 3.6 meq/L 3.5 - 5.1 02/20/2014 [facility] ELECTROLYTES Sodium Lvl 142 meq/L 135 - 145 02/20/2014 [facility] ELECTROLYTES Creatinine Lvl 1.2 mg/dL 0.5 - 1.4 02/20/2014 [facility] Lymphocytes 7.8 % 20.0 - 40.0 02/20/2014 [facility] HEMATOLOGY Monocytes 5.7 % 2.0 - 12.0 02/20/2014 [facility] Segs-Bands # 11.3 K/CMM 1.5 - 8.1 02/20/2014 [facility] HEMATOLOGY Eosinophils 0.0 % 0.0 - 4.0 02/20/2014 [facility] HEMATOLOGY Basophils 0.3 % 0.0 - 1.0 02/20/2014 [facility] Lymphocytes # 1.0 K/CMM 1.0 - 5.5 02/20/2014 [facility] Basophils # 0.0 K/CMM 0.0 - 0.2 02/20/2014 [facility] Segs 86.2 % 45.0 - 75.0 02/20/2014 [facility] Eosinophils # 0.0 K/CMM 0.0 - 0.5 02/20/2014 [facility] Monocytes # 0.7 K/CMM 0.0 - 0.8 02/20/2014 [facility] PT 14.1 s 12.0 - 14.7 02/20/2014 [facility] INR 1.10 0.85 - 1.17 02/20/2014 6Interpretive Data: RECOMMENDED RANGES FOR PROTIME INR: 2.0-3.0 for most medical and surgical thromboembolic states. 2.5-3.5 for artificial heart valves and recurrent embolism. INR SHOULD BE USED ONLY FOR PATIENTS ON STABLE ANTICOAGULANT THERAPY. [facility] Hct 39.3 % 42.0 - 54.0 02/20/2014 [facility] MCHC 32.3 g/dL 32.0 - 36.0 02/20/2014 [facility] RDW 15.7 % 11.5 - 14.5 02/20/2014 [facility] MCH 28.5 pg 27.0 - 31.0 02/20/2014 [facility] MPV 9.4 fL 7.4 - 10.4 02/20/2014 [facility] Platelet 237 K/CMM 133 - 450 02/20/2014 [facility] MCV 88.2 fL 80.0 - 94.0 02/20/2014 [facility] HEMATOLOGY Hgb 12.7 g/dL 14.0 - 18.0 02/20/2014 [facility] HEMATOLOGY RBC 4.46 M/CMM 4.70 - 6.10 02/20/2014 [facility] HEMATOLOGY WBC 13.1 K/CMM 3.7 - 10.4 02/20/2014 [facility] THYROID PANEL TSH 1.490 uIU/mL 0.360 - 3.740 02/20/2014 [facility] CHEM PANEL A/G Ratio 0.8 0.7 - 1.6 02/19/2014 [facility] CHEM PANEL B/C Ratio 16 6 - 25 02/19/2014 [facility] CHEM PANEL Globulin 4.2 g/dL 2.0 - 4.0 02/19/2014 [facility] CHEM PANEL AGAP 15.7 meq/L 10.0 - 20.0 02/19/2014 [facility] CHEM PANEL eGFR 43 mL/min/1.73m2 02/19/2014 2Result Comment: The eGFR is calculated using [...] from the National Kidney Disease Education Program (NKDEP) which additionally recommends that when the eGFR is used in patients with extremes of body mass index for purposes of drug dosing, the eGFR should be multiplied by the estimated BMI. [facility] CHEM PANEL Bili Total 1.1 mg/dL 0.2 - 1.3 02/19/2014 [facility] CHEM PANEL Alk Phos 151 unit/L 39 - 136 02/19/2014 [facility] CHEM PANEL Chloride Lvl 107 meq/L 95 - 109 02/19/2014 [facility] CHEM PANEL Sodium Lvl 142 meq/L 135 - 145 02/19/2014 [facility] CHEM PANEL CO2 23 meq/L 24 - 32 02/19/2014 [facility] CHEM PANEL Potassium Lvl 3.7 meq/L 3.5 - 5.1 02/19/2014 [facility] CHEM PANEL Creatinine Lvl 1.5 mg/dL 0.5 - 1.4 02/19/2014 [facility] CHEM PANEL AST 19 unit/L 0 - 37 02/19/2014 [facility] CHEM PANEL ALT 13 unit/L 0 - 65 02/19/2014 [facility] CHEM PANEL Albumin Lvl 3.5 g/dL 3.5 - 5.0 02/19/2014 [facility] CHEM PANEL Total Protein 7.7 g/dL 6.4 - 8.4 02/19/2014 [facility] CHEM PANEL Calcium Lvl 9.0 mg/dL 8.5 - 10.5 02/19/2014 [facility] CHEM PANEL BUN 24 mg/dL 7 - 22 02/19/2014 [facility] CHEM PANEL Glucose Lvl 131 mg/dL 70 - 99 02/19/2014 4Interpretive Data: Adult reference range values reflect the clinical guidelines of the [place] [employer]. [facility] HEMATOLOGY PT 13.6 s 12.0 - 14.7 02/19/2014 [facility] PTT 24.6 s 22.9 - 35.8 02/19/2014 8Interpretive Data: Heparin Therapeutic Range: 57 - 92 Seconds [facility] HEMATOLOGY INR 1.05 0.85 - 1.17 02/19/2014 7Interpretive Data: RECOMMENDED RANGES FOR PROTIME INR: 2.0-3.0 for most medical and surgical thromboembolic states. 2.5-3.5 for artificial heart valves and recurrent embolism. INR SHOULD BE USED ONLY FOR PATIENTS ON STABLE ANTICOAGULANT THERAPY. [facility] Hct 39.7 % 42.0 - 54.0 02/19/2014 [facility] MCV 86.8 fL 80.0 - 94.0 02/19/2014 [facility] RDW 15.4 % 11.5 - 14.5 02/19/2014 [facility] MCHC 33.0 g/dL 32.0 - 36.0 02/19/2014 [facility] MCH 28.7 pg 27.0 - 31.0 02/19/2014 [facility] WBC 14.6 K/CMM 3.7 - 10.4 02/19/2014 [facility] RBC 4.57 M/CMM 4.70 - 6.10 02/19/2014 [facility] Hgb 13.1 g/dL 14.0 - 18.0 02/19/2014 [facility] Platelet 257 K/CMM 133 - 450 02/19/2014 [facility] HEMATOLOGY MPV 8.6 fL 7.4 - 10.4 02/19/2014 [facility] HEMATOLOGY Basophils 0.3 % 0.0 - 1.0 02/19/2014 [facility] HEMATOLOGY Segs-Bands # 12.1 K/CMM 1.5 - 8.1 02/19/2014 [facility] HEMATOLOGY Basophils # 0.0 K/CMM 0.0 - 0.2 02/19/2014 [facility] HEMATOLOGY Monocytes # 1.1 K/CMM 0.0 - 0.8 02/19/2014 [facility] HEMATOLOGY Lymphocytes # 1.4 K/CMM 1.0 - 5.5 02/19/2014 [facility] HEMATOLOGY Eosinophils # 0.0 K/CMM 0.0 - 0.5 02/19/2014 [facility] HEMATOLOGY Lymphocytes 9.4 % 20.0 - 40.0 02/19/2014 [facility] HEMATOLOGY Segs 82.6 % 45.0 - 75.0 02/19/2014 [facility] HEMATOLOGY Eosinophils 0.0 % 0.0 - 4.0 02/19/2014 [facility] HEMATOLOGY Monocytes 7.7 % 2.0 - 12.0 02/19/2014 [facility] HEMATOLOGY Plt Morph Normal (02/19/14 11:10 AM) 02/19/2014 [facility] HEMATOLOGY RBC Morph Normal (02/19/14 11:10 AM) 02/19/2014 [facility] LIPIDS LDL (Calculated) 79 mg/dL <=99 mg/dL 02/19/2014 [facility] LIPIDS VLDL 22 02/19/2014 [facility] LIPIDS CHD Risk 3.10 4.00 - 7.30 02/19/2014 [facility] LIPIDS HDL 48 mg/dL >=61 mg/dL 02/19/2014 [facility] LIPIDS Chol 149 mg/dL <=199 mg/dL 02/19/2014 [facility] LIPIDS Trig 111 mg/dL <=149 mg/dL 02/19/2014 [facility] URINE AND STOOL UA Protein Negative mg/dL Negative mg/dL 02/19/2014 [facility] URINE AND STOOL UA Glucose Negative mg/dL Negative mg/dL 02/19/2014 [facility] URINE AND STOOL UA Nitrite Negative (02/19/14 11:10 AM) Negative 02/19/2014 [facility] URINE AND STOOL UA WBC 12 /HPF 0 - 5 02/19/2014 [facility] URINE AND STOOL UA Leuk Est Negative (02/19/14 11:10 AM) Negative 02/19/2014 [facility] URINE AND STOOL UA Ketones Negative mg/dL Negative mg/dL 02/19/2014 [facility] URINE AND STOOL UA Blood Negative (02/19/14 11:10 AM) Negative 02/19/2014 [facility] URINE AND STOOL UA Bili Negative *NA* (02/19/14 11:10 AM) Negative 02/19/2014 [facility] URINE AND STOOL UA RBC 7 /HPF 0 - 2 02/19/2014 [facility] URINE AND STOOL UA Bacteria Occasional /HPF None Seen /HPF 02/19/2014 [facility] URINE AND STOOL UA Urobilinogen <=1.0 mg/dL 0.1 - 1.0 02/19/2014 [facility] URINE AND STOOL UA Sq Epi None Seen 02/19/2014 [facility] URINE AND STOOL UA pH 6.0 5.0 - 8.0 02/19/2014 [facility] URINE AND STOOL UA Turbidity Clear (02/19/14 11:10 AM) Clear 02/19/2014 [facility] URINE AND STOOL UA Spec Grav 1.012 <=1.030 02/19/2014 [facility] URINE AND STOOL UA Color Yellow *NA* (02/19/14 11:10 AM) Yellow 02/19/2014 [facility] Chest 1view Chest 1view Examination: Chest x-ray, single view History: Chest tightness Comparison: None. Findings: The lungs are clear and without focal consolidation. The cardiomediastinal silhouette is within normal limits. No pleural effusion or pneumothorax is seen. The osseous structures are without focal abnormality. Median sternotomy wires are noted. Left-sided dual chamber pacemaker is present. IMPRESSION: No acute cardiopulmonary disease. SL: 13 02/19/2014 - - Read by: Damon Sadler MD Dictated Date/time: 02/19/14 11:58 Electronically Signed by: Damon Sadler MD 02/19/14 11:59 FINAL REPORT [facility] Brain wo contrast CT Brain wo contrast CT CT HEAD WITHOUT CONTRAST CLINICAL INDICATION: Head trauma/ on warfarin. Fall, injury Comparison: None available. TECHNIQUE: Multiple contiguous axial images of the brain were performed without IV contrast. FINDINGS: No acute territorial infarction or intracranial hemorrhage. No extra-axial fluid collection. Ventricles are symmetric and not displaced. Tan-white distinction is preserved. No mass, mass-effect, or midline shift. Mild cerebral atrophy and mild chronic small vessel ischemic change. Visualized paranasal sinuses are unremarkable. Osseous structures unremarkable. IMPRESSION: 1. No acute abnormality. 2. Diffuse cerebral atrophy and mild chronic small vessel ischemic change. SL: 14 02/19/2014 - - Read by: Logan Parker MD Dictated Date/time: 02/19/14 11:39 Electronically Signed by: Logan Parker MD 02/19/14 11:40 FINAL REPORT [facility] Vital Signs Vital Sign Value Date Comments Source Heart Rate 88 12/10/[facility] Systolic (mm Hg) 117 12/10/2017 [facility] Diastolic (mm Hg) 73 12/10/2017 [facility] Systolic (mm Hg) 109 04/19/2015 [facility] Diastolic (mm Hg) 74 04/19/2015 [facility] Heart Rate 79 04/19/2015 [facility] Respitory Rate 18 04/19/2015 [facility] Temperature Oral (F) 98.1 F 04/19/2015 [facility] Respitory Rate 18 04/19/2015 [facility] Systolic (mm Hg) 150 04/19/2015 [facility] Diastolic (mm Hg) 78 04/19/2015 [facility] Temperature Oral (F) 99.1 F 04/19/2015 [facility] Heart Rate 60 04/19/2015 [facility] Systolic (mm Hg) 120 04/19/2015 [facility] Diastolic (mm Hg) 61 04/19/2015 [facility] Respitory Rate 18 04/19/2015 [facility] Temperature Oral (F) 98.2 F 04/19/2015 [facility] Heart Rate 73 04/19/2015 [facility] Height 165.1 cm 04/16/2015 [facility] Weight 65.909 04/16/2015 [facility] BMI Calculated 24.18 04/16/2015 [facility] Height 165.1 cm 04/16/2015 [facility] BMI Calculated 23.35 04/16/2015 [facility] Weight 63.636 04/16/2015 [facility] Diastolic (mm Hg) 81 02/20/2014 [facility] Systolic (mm Hg) 166 02/20/2014 [facility] Respitory Rate 18 02/20/2014 [facility] Heart Rate 116 02/20/2014 [facility] Temperature Oral (F) 98.9 F 02/20/2014 [facility] Diastolic (mm Hg) 80 02/20/2014 [facility] Systolic (mm Hg) 134 02/20/2014 [facility] Temperature Oral (F) 98.4 F 02/20/2014 [facility] Heart Rate 105 02/20/2014 [facility] Respitory Rate 16 02/20/2014 [facility] Respitory Rate 18 02/20/2014 [facility] Heart Rate 99 02/20/2014 [facility] Diastolic (mm Hg) 70 02/20/2014 [facility] Systolic (mm Hg) 119 02/20/2014 [facility] Temperature Oral (F) 99.6 F 02/20/2014 [facility] Height 165.1 cm 02/19/2014 [facility] BMI Calculated 24.68 02/19/2014 [facility] Weight 67.273 02/19/2014 [facility] Weight 67.273 02/19/2014 [facility] BMI Calculated 24.68 02/19/2014 [facility] Height 165.1 cm 02/19/2014 [facility] Encounters Location Location Details Encounter Type Encounter Number Reason For Visit Attending Provider ADM Date DC Date Status Source [facility] OBS Observation Patient [id number] Jon Mulligan 02/19/2014 02/20/2014 [facility] Inpatient [id number] Abe Teqwimuah 04/16/2015 04/19/2015 [facility] Outpatient [id number] ETHAN FELIZ 07/07/2015 [facility] Outpatient [id number] Tanner Soto 07/19/2016 07/20/2016 [facility] Outpatient [id number] SOPHY ARKIM 10/29/2017 Active [facility] Outpatient [id number] Sophy Inkim 11/14/2017 11/14/2017 [facility] Outpatient [id number] SOPHY ARKIM 11/21/2017 [facility] Urology [facility] Ambulatory Pre-Reg [id number] Sophy Inkim 11/21/2017 11/21/2017 [facility] [id number] SOPHY ARKIM 11/25/2017 [facility] Outpatient [id number] Sophy Inkim 11/25/2017 11/26/2017 [facility] Outpatient [id number] Sophy Inkim 11/25/2017 11/26/2017 [facility] Outpatient [id number] PROCEDURE ROOM 1 11/28/2017 Active [facility] Outpatient [id number] SOPHY AMADO 11/28/2017 [facility] Urology [facility] Outpatient [id number] Sophy [facility] 11/28/2017 11/29/2017 [facility] Outpatient [id number] Sophy [facility] 11/28/2017 11/29/2017 [facility] Outpatient [id number] SOPHY [facility] 12/10/2017 [facility] Outpatient [id number] Sophy [facility] 12/10/2017 12/11/2017 [facility] [facility] Outpatient [id number] Tanner Charles 12/23/2017 12/24/2017 [facility] Outpatient [id number] [facility] 03/13/2018 Active [facility] Urology [facility] Ambulatory Pre-Reg [id number] [facility] 03/13/2018 03/13/2018 [facility] Procedures Procedure Code Date Perfomer Comments Source Cystourethroscopy (separate procedure) 88893 11/28/2017 [facility] Pacemaker care management [id number] [facility] Bypass<sup>1</sup> [id number] cardiac with no symptoms prior to surgery [facility] Pacemaker care management [id number] [facility] Bypass<sup>1</sup> [id number] cardiac with no symptoms prior to surgery [facility]
--- OUTSIDE RECORDS SUMMARY | 2018-07-21 12:32 | XMS REPORT | Summary of Care ---
Author Author [facility] Organization [facility] Address Unknown Phone Unavailable Encounter HQ Zandrantr_alipriscilla(FIN) [id number] Date(s): 03/13/18 - 03/13/[address] 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 2Data migrated from [employer] on 03/04/15. 3Data migrated from [employer] on 04/22/15. 4Data migrated from [employer] on 04/21/15. 5Data migrated from [employer] on 03/04/15. 6Data migrated from [employer] on 03/04/15. 7Data migrated from [employer] on 04/12/15. 8Data migrated from [employer] on 03/04/15. 9Data migrated from [employer] on 03/04/15. 10Data migrated from [employer] on 04/12/15. Allergies, Adverse Reactions, Alerts Substance Reaction Severity Status NKDA Active Medications No data available for this section Results No data available for this section Immunizations No data available for this section Procedures Procedure Date Related Diagnosis Body Site Status Bypass1 Completed Pacemaker care management Completed 1cardiac with no symptoms prior to surgery Social History Social History Type Response Smoking Status Never smoker; Type: Cigars; Exposure to Tobacco Smoke None; Cigarette Smoking Last 365 Days No; Reg Smoking Cessation Counseling No entered on: 12/10/17 Assessment and Plan No data available for this section
--- OUTSIDE RECORDS SUMMARY | 2018-07-21 12:32 | XMS REPORT | Summary of Care ---
Author Author [facility] Organization [facility] Address Unknown Phone Unavailable Encounter HQ Zandrantr_alipriscilla(FIN) [id number] Date(s): 12/23/17 - 12/23/17 [facility] [address] [place] [address]- [phone] Encounter Diagnosis Contusion of right shoulder, initial encounter (Final) - 12/31/17 Discharge Disposition: Home or Self Care Attending Physician: Tanner Soto MD Vital Signs No data available for [...]
--- OUTSIDE RECORDS SUMMARY | 2018-07-21 12:32 | XMS REPORT | Summary of Care ---
Author Author [facility] Organization [facility] Address Unknown Phone Unavailable Encounter HQ Benitez(FIN) [id number] Date(s): 12/10/17 - 12/10/17 [facility] U[facility] [address] [place] [address] [phone] Discharge Disposition: Home or Self Care Attending Physician: Steve Garcia MD Vital Signs Most recent to 1 oldest [Reference Range]: Blood Pressure 117/73 mmHg [90-140/60-90 mmHg] (12/10/17 11:04 AM) Peripheral Pulse 88 bpm Rate [60-100 bpm] (12/10/17 11:04 AM) Problem List Condition Effective Dates Status Health [...] Active retention(Confirmed) Urinary tract 03/29/15 Active infectious [id number] 1Data migrated from [employer] on 03/04/15. 2Data migrated from [employer] on 03/04/15. 3Data migrated from [employer] on 04/22/15. 4Data migrated from [employer] on 04/21/15. 5Data migrated from [employer] on 03/04/15. 6Data migrated from [employer] on 03/04/15. 7Data migrated from [employer] on 04/12/15. 8Data migrated from [employer] on 5/30/15. 9Data migrated from [employer] on 03/04/15. 10Data migrated from [employer] on 04/12/15. Allergies, Adverse Reactions, Alerts Substance Reaction Severity Status NKDA Active Medications Levaquin 500 mg oral tablet 500 mg=1 tab, PO, Q24H, X 10 day, # 10 tab, 0 Refill(s), Pharmacy: [facility] [id number] Start Date: 12/04/17 Stop Date: 12/14/17 Status: Completed Results URINE AND STOOL Most recent to 1 oldest [Reference Range]: POC UA Turbidity Clear [Clear] *NA* (12/10/17 11:15 AM) POC UA Color Yellow [Yellow] *NA* (12/10/17 11:15 AM) POC UA pH [5.0-8.0] 5.5 (12/10/17 11:15 AM) POC UA SG [<=1.030] 1.015 (12/10/17 11:15 AM) POC UA Glu [Negative Negative mg/dL mg/dL] *NA* (12/10/17 11:15 AM) POC UA Bld Large [Negative] *ABN* (12/10/17 11:15 AM) POC UA Ket [Negative Negative mg/dL mg/dL] *NA* (12/10/17 11:15 AM) POC UA Prot 100 mg/dL [Negative mg/dL] *ABN* (12/10/17 11:15 AM) POC UA Uro [0.1-1.0 0.2 EU/dL EU/dL] (12/10/17 11:15 AM) POC UA Bili Negative [Negative] *NA* (12/10/17 11:15 AM) POC UA LeukEst Moderate [Negative] *ABN* (12/10/17 11:15 AM) POC UA Nit Negative [Negative] *NA* (12/10/17 11:15 AM) Immunizations No data available for this section [...]
--- OUTSIDE RECORDS SUMMARY | 2018-07-21 12:32 | XMS REPORT | Summary of Care ---
Author Author [facility] Organization [facility] Address Unknown Phone Unavailable Encounter HQ Benitez(FIN) [id number] Date(s): 11/14/17 - 11/14/17 [facility] [address] [place] [address]- Attending Physician: Steve Garcia MD Referring Physician: Steve Garcia MD Vital Signs No [...] Active retention(Confirmed) Urinary tract 03/29/15 Active infectious [id number] 1Data migrated from [employer] on 03/04/15. [...]
--- OUTSIDE RECORDS SUMMARY | 2018-07-21 12:32 | XMS REPORT | Summary of Care ---
Author Author [facility] Organization [facility] Address Unknown Phone Unavailable Encounter HQ Benjar_alexandre(FIN) [id number] Date(s): 11/21/17 - 11/21/17 [facility] [address] [place] [address] [phone] Attending Physician: Steve Garcia MD Vital Signs [...]
--- OUTSIDE RECORDS SUMMARY | 2018-07-21 12:32 | XMS REPORT | Summary of Care ---
Author Author [facility] Organization [facility] Address Unknown Phone Unavailable Encounter HQ Benjar_alipriscilla(FIN) [id number] Date(s): 11/25/17 - 11/25/17 [facility] U[facility] [address] [place] [address] [phone] Discharge Disposition: Home or Self Care Attending [...] Active retention(Confirmed) Urinary tract 03/29/15 Active infectious [id number] 1Data migrated from [employer] on 03/04/15. [...]
--- OUTSIDE RECORDS SUMMARY | 2018-07-21 12:32 | XMS REPORT | Summary of Care ---
Author Author [facility] Organization [facility] Address Unknown Phone Unavailable Encounter HQ Benjar_alexandre(FIN) [id number] Date(s): 11/28/17 - 11/28/17 [facility] [address] [place] [address] [phone] Discharge Disposition: Home or Self Care Attending [...] Active retention(Confirmed) Urinary tract 03/29/15 Active infectious [id number] 1Data migrated from [employer] on 03/04/15. [...] Procedure Date Related Diagnosis Body Site Status Cystourethroscopy (separate procedure) 11/28/17 Completed Bypass1 Completed Pacemaker care management Completed 1cardiac with no symptoms prior to surgery Social History Social History Type Response Smoking Status Never smoker; Type: Cigars; Exposure to Tobacco Smoke None; Cigarette Smoking Last 365 Days No; Reg Smoking Cessation Counseling No entered on: 12/10/17 Assessment and Plan No data available for this section
--- OUTSIDE RECORDS SUMMARY | 2018-07-21 12:32 | XMS REPORT | Summary of Care ---
Author Author [facility] Organization [facility] Address Unknown Phone Unavailable Encounter ALYSSA Marquis(BHARGAVI) [id number] Date(s): 04/16/15 - 04/19/15 [facility] [address] [place] [address]- Final: Discharge Disposition: Home Attending Physician: Abe Fields DO Admitting Physician: Abe Fields DO Vital Signs 1 2 3 Most recent to oldest [Reference Range]: 165.1 cm (04/16/15 2:24 PM) 165.1 cm (04/16/15 9:34 AM) Height 1 2 3 Most recent to oldest [Reference Range]: 98.1 DegF (04/19/15 7:50 AM) 99.1 DegF (04/19/15 5:28 AM) 98.2 DegF (04/19/15 12:29 AM) Temperature Oral [96.4-99.1 DegF] 1 2 3 Most recent to oldest [Reference Range]: 109/74 mmHg (04/19/15 7:50 AM) 150/78 mmHg *HI* (04/19/15 5:28 AM) 120/61 mmHg (04/19/15 12:29 AM) Blood Pressure [90-140/60-90 mmHg] 1 2 3 Most recent to oldest [Reference Range]: 18 BRMIN (04/19/15 7:50 AM) 18 BRMIN (04/19/15 5:28 AM) 18 BRMIN (04/19/15 12:29 AM) Respiratory Rate [14-20 BRMIN] 1 2 3 Most recent to oldest [Reference Range]: 79 bpm (04/19/15 7:50 AM) 60 bpm (04/19/15 5:28 AM) 73 bpm (04/19/15 12:29 AM) Peripheral Pulse Rate [60-100 bpm] 1 2 3 Most recent to oldest [Reference Range]: 65.909 kg (04/16/15 2:24 PM) 63.636 kg (04/16/15 9:34 AM) Weight 1 2 3 Most recent to oldest [Reference Range]: 24.18 m2 (04/16/15 2:24 PM) 23.35 m2 (04/16/15 9:34 AM) Body Mass Index Problem List Condition Effective Dates Status Health Status Informant Benign hypertension1 10/06/59 Active Benign prostatic Resolved hypertrophy(Confirme d) Benign prostatic 10/26/14 Active hypertrophy with outflow obstruction2 Chronic kidney 10/06/59 Active disease stage 33 Coronary 10/26/14 Active arteriosclerosis4 Dysuria5 03/29/15 Resolved Hyperlipidemia6 10/06/59 Active Hyperlipidemia(Confi Active rmed) Hypertension(Confirm Active ed) Peripheral vascular 12/07/13 Active disease7 PVD - Peripheral Active vascular disease(Confirmed) Urinary tract 03/29/15 Active infectious disease8 Warfarin therapy 10/26/14 Active started9 Wears Active glasses(Confirmed) 1Data migrated from [employer] on 03/04/15. 2Data migrated from [employer] on 03/04/15. 3Data migrated from [employer] on 03/04/15. 4Data migrated from [employer] on 03/04/15. 5Data migrated from [employer] on 04/12/15. 6Data migrated from [employer] on 03/04/15. 7Data migrated from [employer] on 03/04/15. 8Data migrated from [employer] on 04/12/15. 9Data migrated from [employer] on 03/04/15. Allergies, Adverse Reactions, Alerts Substance Reaction Severity Status NKDA Active Medications Ambien 5 mg, 1 tab, Route: PO, Drug form: TAB, Bedtime, Dosing Weight 63.636, kg, PRN I nsomnia, Start date: 04/16/15 12:37:00, Duration: 30 day, Stop date: 05/16/15 12 :36:00 Notes: (Same As: Ambien) Start Date: 04/16/15 Stop Date: 04/19/15 Status: Discontinued Ancef + Sodium Chloride 0.9% IV 100 mL 1 gm, Route: IVPB, [id number], Dosing Weight 65.909, kg, Start date: 04/18/15 9:00:0 0, Duration: 30 day, Stop date: 05/18/15 1:00:00 Notes: (Same As: Puma Steinberg) MEDICATION WASTE Product Size: 1000 mgP roduct Wasted: ___ mg Start Date: 04/18/15 Stop Date: 04/19/15 Status: Discontinued aspirin 81 mg tablet, enteric coated 81 mg, 1 tab, Route: PO, Drug form: ECTAB, Daily, Dosing Weight 65.909, kg, Star t date: 04/17/15 21:00:00, Duration: 30 day, Stop date: 05/17/15 9:00:00 Notes: Do not crush or chew.(Same As: Ecotrin) Start Date: 04/17/15 Stop Date: 04/19/15 Status: Discontinued Aspirin Enteric Coated 81 mg oral delayed release tablet 81 mg=1 tab, PO, Daily, # 30 tab, 0 Refill(s) Start Date: 04/19/15 Status: Ordered atorvastatin 20 mg, 2 tab, Route: PO, Drug form: TAB, Bedtime, Dosing Weight 65.909, kg, Star t date: 04/16/15 21:00:00, Duration: 30 day, Stop date: 05/15/15 21:00:00 Notes: (Same As: Lipitor) Start Date: 04/16/15 Stop Date: 04/19/15 Status: Discontinued cefTRIAXone + Sodium Chloride 0.9% IV 100 mL 1 gm, Route: IVPB, [id number], Dosing Weight 65.909, kg, Start date: 04/17/15 8:00: 00, Duration: 30 day, Stop date: 05/16/15 20:00:00 Notes: (Same As: Rocephin).Use with 100ml NS mini-bag PLUS and infuse over 30 mi n MEDICATION WASTE Product Size: 1000 mgProduct Wasted: ___ mg Start Date: 04/17/15 Stop Date: 04/17/15 Status: Discontinued Colace 100 mg oral capsule 100 mg, 1 cap, Route: PO, Drug form: CAP, BID, Dosing Weight 63.636, kg, Start d ate: 04/16/15 17:00:00, Duration: 30 day, Stop date: 05/16/15 9:00:00 Notes: (Same as: Colace) (Do Not Crush) Start Date: 04/16/15 Stop Date: 04/19/15 Status: Discontinued Coumadin 5 mg, 1 tab, Route: PO, Drug form: TAB, Q5PM, Dosing Weight 65.909, kg, Start da te: 04/17/15 17:00:00, Duration: 5 day, Stop date: 04/21/15 17:00:00 Notes: Nurse to ensure documentation of patient education per anticoagulation po licy.Avoid large intake of vitamin-K containing foods diet.(Same As: Coumadin) Start Date: 04/17/15 Stop Date: 04/17/15 Status: Discontinued Coumadin 2 mg oral tablet 2 mg=1 tab, PO, Daily, # 30 tab, 0 Refill(s) Start Date: 04/19/15 Status: Ordered doxycycline hyclate 100 mg oral capsule 100 mg=1 cap, PO, Daily, X 7 day, # 7 cap, 0 Refill(s) Start Date: 04/19/15 Stop Date: 04/26/15 Status: Ordered folic acid 1 mg oral tablet 4 mg=4 tab, PO, Daily, 0 Refill(s) Start Date: 04/16/15 Status: Ordered Lasix 20 mg, 2 mL, Route: IVP, Drug form: INJ, Daily, Dosing Weight 65.909, kg, Priori ty: NOW, Start date: 04/17/15 20:26:00, Duration: 30 day, Stop date: 05/17/15 9: 00:00 Notes: (Same as: Lasix) Start Date: 04/17/15 Stop Date: 04/19/15 Status: Discontinued Lasix 20 mg oral tablet 20 mg=1 tab, PO, Daily, # 30 tab, 0 Refill(s) Start Date: 04/19/15 Status: Ordered losartan 50 mg, 1 tab, Route: PO, Drug form: TAB, Daily, Dosing Weight 65.909, kg, Start date: 04/17/15 9:00:00, Duration: 30 day, Stop date: 05/16/15 9:00:00 Notes: (Same as: Lesly) Start Date: 04/17/15 Stop Date: 04/19/15 Status: Discontinued morphine Sulfate 2 mg, 1 mL, Route: IVP, Drug form: INJ, Q3H, Dosing Weight 63.636, kg, PRN Pain Score 4-6, Start date: 04/16/15 13:14:00, Duration: 30 day, Stop date: 05/16/15 13:13:00 Notes: (Same as:MORPhine Sulfate) Start Date: 04/16/15 Stop Date: 04/19/15 Status: Discontinued niacin 1,000 mg, PO, Bedtime, 0 Refill(s) Start Date: 04/16/15 Status: Ordered ondansetron 4 mg, 2 mL, Route: IVP, Drug form: INJ, Q8H, Dosing Weight 63.636, kg, PRN Nause a & Vomiting, Start date: 04/16/15 13:14:00, Duration: 30 day, Stop date: 05/16/15 13:13:00 Notes: (Same as: Sergo) MEDICATION WASTE Product Size: 4 mgProduct Was alannah: ___ mg Start Date: 04/16/15 Stop Date: 04/19/15 Status: Discontinued Saline Flush 0.9% 10 ml, Route: IVP, Drug Form: INJ, Dosing Weight 63.636, kg, PRN, PRN Line Flush , Start date: 04/16/15 13:14:00, Duration: 30 day, Stop date: 05/16/15 13:13:00 Notes: (Same as: BD Posiflush) Start Date: 04/16/15 Stop Date: 04/19/15 Status: Discontinued Tylenol 650 mg, Route: PO, Drug form: TAB, ONCE, Dosing Weight 63.636, kg, Priority: STA T, Start date: 04/16/15 10:08:00, Stop date: 04/16/15 10:08:00 Start Date: 04/16/15 Stop Date: 04/16/15 Status: Completed Ultram 50 mg oral tablet 1 - 2 tabs, PO, Q4-6H, PRN Pain Score 1-5, X 4 day, # 30 tab, 0 Refill(s) Start Date: 04/19/15 Stop Date: 04/23/15 Status: Ordered Vitamin K1 5 mg, Route: IVPB, ONCE, Dosing Weight 63.636, kg, Start date: 04/16/15 11:47:00 , Duration: 1 doses or times, Stop date: 04/16/15 11:47:00 Start Date: 04/16/15 Stop Date: 04/16/15 Status: Completed Vitamin K1 5 mg, Route: PO, Drug form: TAB, ONCE, Dosing Weight 63.636, kg, Start date: 09/19 11:35:00, Duration: 1 doses or times, Stop date: 04/16/15 11:35:00 Start Date: 04/16/15 Stop Date: 04/16/15 Status: Discontinued warfarin 2.5 mg, 1 tab, Route: PO, Drug form: TAB, Q5PM, Dosing Weight 65.909, kg, Priori ty: Routine, Start date: 04/18/15 17:00:00, Duration: 7 day, Stop date: 04/24/15 17:00:00 Notes: Nurse to ensure documentation of patient education per anticoagulation po licy.Avoid large intake of vitamin-K containing foods diet.(Same As: Coumadin) Start Date: 04/18/15 Stop Date: 04/19/15 Status: Discontinued Zofran 4 mg, 2 mL, Route: IVP, Drug form: INJ, Q8H, Dosing Weight 63.636, kg, PRN as ne eded for nausea/vomiting, Priority: STAT, Start date: 04/16/15 12:37:00, Duratio n: 30 day, Stop date: 05/16/15 12:36:00 Notes: (Same as: Zofran) MEDICATION WASTE Product Size: 4 mgProduct Was alannah: ___ mg Start Date: 04/16/15 Stop Date: 04/16/15 Status: Discontinued Results ELECTROLYTES 1 2 3 Most recent to oldest [Reference Range]: 140 mEq/L (04/19/15 4:54 AM) 141 mEq/L (04/18/15 4:46 AM) 141 mEq/L (04/17/15 6:17 AM) Sodium Lvl [135-145 mEq/L] 3.8 mEq/L (04/19/15 4:54 AM) 4.2 mEq/L (04/18/15 4:46 AM) 4.4 mEq/L (04/17/15 6:17 AM) Potassium Lvl [3.5-5.1 mEq/L] 106 mEq/L (04/19/15 4:54 AM) 107 mEq/L (04/18/15 4:46 AM) 110 mEq/L *HI* (04/17/15 6:17 AM) Chloride Lvl [95-109 mEq/L] 24 mEq/L (04/19/15 4:54 AM) 27 mEq/L (04/18/15 4:46 AM) 20 mEq/L *LOW* (04/17/15 6:17 AM) CO2 [24-32 mEq/L] 13.8 mEq/L (04/19/15 4:54 AM) 11.2 mEq/L (04/18/15 4:46 AM) 15.4 mEq/L (04/17/15 6:17 AM) AGAP [10.0-20.0 mEq/L] CHEM PANEL 1 2 3 Most recent to oldest [Reference Range]: 1.4 mg/dL (04/19/15 4:54 AM) 1.5 mg/dL *HI* (04/18/15 4:46 AM) 1.5 mg/dL *HI* (04/17/15 6:17 AM) Creatinine Lvl [0.5-1.4 mg/dL] 46 mL/min/1.73m2 1 *NA* (04/19/15 4:54 AM) 42 mL/min/1.73m2 2 *NA* (04/18/15 4:46 AM) 42 mL/min/1.73m2 3 *NA* (04/17/15 6:17 AM) eGFR 27 mg/dL *HI* (04/19/15 4:54 AM) 26 mg/dL *HI* (04/18/15 4:46 AM) 26 mg/dL *HI* (04/17/15 6:17 AM) BUN [7-22 mg/dL] 17 (04/16/15 10:06 AM) B/C Ratio [6-25] 94 mg/dL (04/19/15 4:54 AM) 90 mg/dL (04/18/15 4:46 AM) 89 mg/dL (04/17/15 6:17 AM) Glucose Lvl [70-99 mg/dL] 7.0 g/dL (04/16/15 10:06 AM) Total Protein [6.4-8.4 g/dL] 3.3 g/dL *LOW* (04/16/15 10:06 AM) Albumin Lvl [3.5-5.0 g/dL] 3.7 g/dL (04/16/15 10:06 AM) Globulin [2.0-4.0 g/dL] 0.9 (04/16/15 10:06 AM) A/G Ratio [0.7-1.6] 8.1 mg/dL *LOW* (04/19/15 4:54 AM) 8.3 mg/dL *LOW* (04/18/15 4:46 AM) 8.2 mg/dL *LOW* (04/17/15 6:17 AM) Calcium Lvl [8.5-10.5 mg/dL] 17 unit/L (04/16/15 10:06 AM) ALT [0-65 unit/L] 16 unit/L (04/16/15 10:06 AM) AST [0-37 unit/L] 161 unit/L *HI* (04/16/15 10:06 AM) Alk Phos [39-136 unit/L] 0.6 mg/dL (04/16/15 10:06 AM) Bili Total [0.2-1.3 mg/dL] 1Result Comment: The eGFR is calculated using [...] be mul tiplied by the estimated BMI. 3Result Comment: The eGFR is calculated using the [...] be mul tiplied by the estimated BMI. CARDIAC ENZYMES 1 2 3 Most recent to oldest [Reference Range]: 273 pg/mL *HI* (04/16/15 6:37 PM) BNP [<=100 pg/mL] LIPIDS 1 2 3 Most recent to oldest [Reference Range]: 2.28 *LOW* (04/17/15 6:17 AM) CHD Risk [4.00-7.30] 121 mg/dL (04/17/15 6:17 AM) Chol [<=199 mg/dL] 110 mg/dL (04/17/15 6:17 AM) Trig [<=149 mg/dL] 53 mg/dL *LOW* (04/17/15 6:17 AM) HDL [>=61 mg/dL] 46 mg/dL (04/17/15 6:17 AM) LDL (Calculated) [<=99 mg/dL] 22 *NA* (04/17/15 6:17 AM) VLDL URINE AND STOOL 1 2 3 Most recent to oldest [Reference Range]: Marked *ABN* (04/16/15 6:29 PM) UA Turbidity [Clear] Yellow *NA* (04/16/15 6:29 PM) UA Color [Yellow] 6.0 (04/16/15 6:29 PM) UA pH [5.0-8.0] 1.014 (04/16/15 6:29 PM) UA Spec Grav [<=1.030] Negative mg/dL *NA* (04/16/15 6:29 PM) UA Glucose [Negative mg/dL] Large *ABN* (04/16/15 6:29 PM) UA Blood [Negative] Negative mg/dL *NA* (04/16/15 6:29 PM) UA Ketones [Negative mg/dL] 30 mg/dL *ABN* (04/16/15 6:29 PM) UA Protein [Negative mg/dL] <=1.0 mg/dL *NA* (04/16/15 6:29 PM) UA Urobilinogen [0.1-1.0 mg/dL] Negative *NA* (04/16/15 6:29 PM) UA Bili [Negative] Small *ABN* (04/16/15 6:29 PM) UA Leuk Est [Negative] Negative (04/16/15 6:29 PM) UA Nitrite [Negative] 69 /HPF *HI* (04/16/15 6:29 PM) UA WBC [0-5 /HPF] >182 /HPF *HI* (04/16/15 6:29 PM) UA RBC [0-2 /HPF] Occasional /HPF *NA* (04/16/15 6:29 PM) UA Bacteria [None Seen /HPF] Occasional /LPF *NA* (04/16/15 6:29 PM) UA Sq Epi [Few /LPF] HEMATOLOGY 1 2 3 Most recent to oldest [Reference Range]: 8.2 K/CMM (04/19/15 4:54 AM) 8.2 K/CMM (04/18/15 4:46 AM) 8.9 K/CMM (04/17/15 6:17 AM) WBC [3.7-10.4 K/CMM] 3.45 M/CMM *LOW* (04/19/15 4:54 AM) 3.40 M/CMM *LOW* (04/18/15 4:46 AM) 3.62 M/CMM *LOW* (04/17/15 6:17 AM) RBC [4.70-6.10 M/CMM] 9.4 g/dL *LOW* (04/19/15 4:54 AM) 9.2 g/dL *LOW* (04/18/15 4:46 AM) 9.8 g/dL *LOW* (04/17/15 6:17 AM) Hgb [14.0-18.0 g/dL] 28.3 % *LOW* (04/19/15 4:54 AM) 27.8 % *LOW* (04/18/15 4:46 AM) 30.2 % *LOW* (04/17/15 6:17 AM) Hct [42.0-54.0 %] 81.9 fL (04/19/15 4:54 AM) 81.7 fL (04/18/15 4:46 AM) 83.5 fL (04/17/15 6:17 AM) MCV [80.0-94.0 fL] 27.3 pg (04/19/15 4:54 AM) 27.2 pg (04/18/15 4:46 AM) 27.1 pg (04/17/15 6:17 AM) MCH [27.0-31.0 pg] 33.3 g/dL (04/19/15 4:54 AM) 33.2 g/dL (04/18/15 4:46 AM) 32.4 g/dL (04/17/15 6:17 AM) MCHC [32.0-36.0 g/dL] 16.0 % *HI* (04/19/15 4:54 AM) 16.6 % *HI* (04/18/15 4:46 AM) 16.8 % *HI* (04/17/15 6:17 AM) RDW [11.5-14.5 %] 222 K/CMM (04/19/15 4:54 AM) 220 K/CMM (04/18/15 4:46 AM) 206 K/CMM (04/17/15 6:17 AM) Platelet [133-450 K/CMM] 9.0 fL (04/19/15 4:54 AM) 8.9 fL (04/18/15 4:46 AM) 9.1 fL (04/17/15 6:17 AM) MPV [7.4-10.4 fL] 58.7 % (04/19/15 4:54 AM) 59.7 % (04/18/15 4:46 AM) 65.3 % (04/17/15 6:17 AM) Segs [45.0-75.0 %] 29.0 % (04/19/15 4:54 AM) 25.8 % (04/18/15 4:46 AM) 23.9 % (04/17/15 6:17 AM) Lymphocytes [20.0-40.0 %] 7.6 % (04/19/15 4:54 AM) 8.6 % (04/18/15 4:46 AM) 7.6 % (04/17/15 6:17 AM) Monocytes [2.0-12.0 %] 3.8 % (04/19/15 4:54 AM) 5.0 % *HI* (04/18/15 4:46 AM) 2.5 % (04/17/15 6:17 AM) Eosinophils [0.0-4.0 %] 0.9 % (04/19/15 4:54 AM) 0.9 % (04/18/15 4:46 AM) 0.7 % (04/17/15 6:17 AM) Basophils [0.0-1.0 %] 4.8 K/CMM (04/19/15 4:54 AM) 4.9 K/CMM (04/18/15 4:46 AM) 5.8 K/CMM (04/17/15 6:17 AM) Segs-Bands # [1.5-8.1 K/CMM] 2.4 K/CMM (04/19/15 4:54 AM) 2.1 K/CMM (04/18/15 4:46 AM) 2.1 K/CMM (04/17/15 6:17 AM) Lymphocytes # [1.0-5.5 K/CMM] 0.6 K/CMM (04/19/15 4:54 AM) 0.7 K/CMM (04/18/15 4:46 AM) 0.7 K/CMM (04/17/15 6:17 AM) Monocytes # [0.0-0.8 K/CMM] 0.3 K/CMM (04/19/15 4:54 AM) 0.4 K/CMM (04/18/15 4:46 AM) 0.2 K/CMM (04/17/15 6:17 AM) Eosinophils # [0.0-0.5 K/CMM] 0.1 K/CMM (04/19/15 4:54 AM) 0.1 K/CMM (04/18/15 4:46 AM) 0.1 K/CMM (04/17/15 6:17 AM) Basophils # [0.0-0.2 K/CMM] 31.0 seconds *HI* (04/19/15 4:54 AM) 21.5 seconds *HI* (04/18/15 4:46 AM) 18.2 seconds *HI* (04/17/15 6:17 AM) PT [12.0-14.7 seconds] 2.86 *HI* (04/19/15 4:54 AM) 1.82 *HI* (04/18/15 4:46 AM) 1.48 *HI* (04/17/15 6:17 AM) INR [0.85-1.17] 142.5 seconds 4 *CRIT* (04/16/15 10:36 AM) PTT [22.9-35.8 seconds] 4Result Comment: Critical Result(s) called to HANANE at _04/16/2015 11:05 by_TD. Read back OK. SPECIMEN CHECKED FOR CLOT; SIMILAR RESULTS ON PREVIOUS SP ECIMEN Immunizations No data available for this section Procedures Procedure Date Related Diagnosis Body Site Bypass1 Pacemaker care management 1cardiac with no symptoms prior to surgery Social History Social History Type Response Smoking Status Never smoker; Exposure to Tobacco Smoke None; Cigarette Smoking Last 365 Days No; Reg Smoking Cessation Counseling No Assessment and Plan Extracted from: Title: Clinical Document Author: Juan Castro MD Date: 04/19/15 Progress Note [facility] Juan Castro M.D. [facility] Follow up reason: Follow up for CAD no chest pain no sob foot swelling getting better Other Diagnosis: * Foot cellulitis *supratherapeutic INR-resolved *chronic diastolic HF 1. Hypertension. 2. Dyslipidemia. 3. Coronary artery disease, status post 3-vessel coronary artery bypass graft in 2008. 4. Paroxysmal atrial fibrillation and sick sinus syndrome, status post dual-chamber [facility]. Adalberto pacemaker placement. 5. Chronic kidney disease stage III. VitalsTmp(F)Tmp(C)[id number] 04/19 07:[id number]/74---[id number]------ 04/19 05:[id number]/78---6018--------- 04/19 00:[id number]/61---7318--------- 04/18 21:[id number]/67---7018--------- 04/18 15:[id number]/58---7418--------- NECK: No jugular venous distention. HEENT: Extraocular movements intact. HEART: S1, S2 is normal, no murmur, no rub, no gallop. CHEST: Bilateral air entry present. No wheezing, no crepitations. ABDOMEN: Bowel sounds present, nontender, nondistended. NEUROLOGIC: Awake, oriented x 3. No lateralization. Bilateral lower extremities:On the right side, the [employer] and dorsalis pedis artery pulsations are palpable, but there is pitting edema present, both above and below the ankle with warmth and superimposed chronic skin changes Labs & Diagnostic Work up: Labs (Last four charted values) WBC 8.2(APR 19)8.2(APR 18)8.9(APR 17)9.9(APR 16) Hgb L 9.4(APR 19)L 9.2(APR 18)L 9.8(APR 17)L 10.2(APR 16) Hct L 28.3(APR 19)L 27.8(APR 18)L 30.2(APR 17)L 30.8(APR 16) Plt 222(APR 19)220(APR 14)206(APR 13)238(APR 16) Na 140(APR 19)141(APR 14)141(APR 17)140(APR 16) K 3.8(APR 19)4.2(APR 18)4.4(APR 17)4.0(APR 16) CO2 24(APR 19)27(APR 18)L 20(APR 17)24(APR 16) Cl 106(APR 19)107(APR 18)H 110(APR 17)109(APR 16) Cr 1.4(APR 19)H 1.5(APR 18)H 1.5(APR 17)H 1.5(APR 16) BUN H 27(APR 19)H 26(APR 18)H 26(APR 17)H 26(APR 16) Glucose Random 94(APR 19)90(APR 18)89(APR 17)H 103(APR 16) Ca L 8.1(APR 19)L 8.3(APR 18)L 8.2(APR 17)L 7.9(APR 16) PT H 31.0(APR 19)H 21.5(APR 18)H 18.2(APR 17)>100(APR 16) INR H 2.86(APR 19)H 1.82(APR 18)H 1.48(APR 17)See Note(APR 16) PTT C 142.5(APR 16) Medications Medications (11) Active Scheduled: (7) aspirin 81 mg ECT 81 mg 1 tab, PO, Daily atorvastatin 10 mg TAB 20 mg 2 tab, PO, Bedtime ceFAZolin 1 gm VL INJ + sodium chloride 0.9% INJ 100ml (mini-bag Plus) 100 mL 1 gm, IVPB, ABXQ8H docusate sodium 100 mg CAP 100 mg 1 cap, PO, BID furosemide 10mg/ml INJ 2ml VL 20 mg 2 mL, IVP, Daily losartan 50 mg TAB 50 mg 1 tab, PO, Daily warfarin 2.5 mg TAB 2.5 mg 1 tab, PO, Q5PM Continuous: (0) PRN: (4) MORPhine sulfate PF 2 mg/ml CARP 2 mg 1 mL, IVP, Q3H ondansetron 4mg/2mL INJ SYRINGE 4 mg 2 mL, IVP, Q8H sodium chloride 0.9% 10 ml flush syr BD 10 ml, IVP, PRN zolpidem 5 mg TAB 5 mg 1 tab, PO, Bedtime Assessment/Plan : -Parox afib: INR jumped to 2.86, decrease warfarin to 2 mg po qpm from tomorrow, hold warfarin today -Chronic diastolic HF:Lasix 20mg po daily at discharge; losartan -CAD: statin; ASA, was on effient at home. As patient has CABG and came with supratherapeutic INR, will give either ASA or plavix at discharge instead of effient. 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
--- OUTSIDE RECORDS SUMMARY | 2018-07-21 12:32 | XMS REPORT | Summary of Care ---
Author Author [facility] Organization [facility] Address Unknown Phone Unavailable Encounter HQ Benjar_alexandre(FIN) [id number] Date(s): 11/28/17 - 11/28/17 [facility] [address] [place] [address] [phone] Discharge Disposition: Home or Self Care Attending [...] Active retention(Confirmed) Urinary tract 03/29/15 Active infectious [email or web address] 1Data migrated from [employer] on 03/04/15. [...]
--- OUTSIDE RECORDS SUMMARY | 2018-07-21 12:32 | XMS REPORT | Summary of Care ---
Author Author [facility] Organization [facility] Address Unknown Phone Unavailable Encounter ALYSSA Marquis(BHARGAVI) [id number] Date(s): 07/19/16 - 07/19/[address] [facility] [address] [place] [address]- Discharge Disposition: Home or Self Care Attending Physician: Tanner Soto MD Referring Physician: Tanner Soto MD Vital Signs No [...] Active Peripheral vascular 12/07/13 Active disease9 Urinary tract 03/29/15 Active infectious [email or web address] 1Data migrated from [employer] on 03/04/15. [...] Smoking Cessation Counseling No Assessment and Plan No data available for this section
--- OUTSIDE RECORDS SUMMARY | 2018-07-21 12:32 | XMS REPORT | Summary of Care ---
Author Author [facility] Organization [facility] Address Unknown Phone Unavailable Encounter HQ Benitez(FIN) [id number] Date(s): 11/25/17 - 11/25/[address] [facility] [address] [place] [address]- [phone] Encounter Diagnosis Hematuria, unspecified (Final) - 11/28/17 Other specified disorders of bladder (Final) - Discharge Disposition: Home or Self Care Attending Physician: Steve Garcia MD Referring Physician: [...] Active retention(Confirmed) Urinary tract 03/29/15 Active infectious [email or web address] 1Data migrated from [employer] on 03/04/15. [...]
--- OUTSIDE RECORDS SUMMARY | 2018-07-21 12:45 | XMS REPORT | Clinical Summary ---
Author Author [facility] Address Unknown Phone Unavailable Care Team Providers Care Ice Cutter Name Role Phone PCP Unavailable Allergies No [...] Problem Noted Date DVT (deep venous thrombosis) ([facility]) 07/02/2015 Anemia 07/02/2015 Cellulitis 07/02/2015 Severe sepsis ([facility]) 06/23/2015 Coronary atherosclerosis of [place] coronary artery 02/20/2015 Nonspecific abnormal unspecified cardiovascular function study 02/20/2015 Social History Tobacco Use Types Packs/Day Years Used Date Never Smoker Alcohol Use Drinks/Week oz/Week Comments No Sex Assigned at Date Recorded Not on file Last Filed Vital Signs Not on file Plan of Treatment Not on file Results Not on fileafter 07/14/2017
--- NOTE | 2018-08-20 02:08 | Operative Report ---
DATE OF PROCEDURE: PREOPERATIVE DIAGNOSES 1. Obstructive BPH. 2. Urinary tract infections. POSTOPERATIVE DIAGNOSES 1. Obstructive BPH. 2. Urinary tract infections. OPERATIONS PERFORMED 1. Cystourethroscopy with bilateral ureteral catheterization and retrograde ureteropyelography (separate procedure performed for the urinary tract infections). 2. Interpretation of retrograde ureteropyelography. 3. Supervision of fluoroscopy. No radiologist present. 4. Cystourethroscopy with transurethral resection of the prostate utilizing the plasma button electrode. ANESTHESIA: General. COMPLICATIONS: None. CLINICAL SUMMARY: Jerson Medel is an 88-year-old man with obstructive BPH. He has had urinary retention, has had a Candelaria catheter in place. He also has history of urinary tract infections. He is brought for the above procedures. He was cleared by cardiology. He is aware of the risks of bleeding, infection, injury to adjacent structures, need for additional procedures, incontinence, impotence, retrograde ejaculation, and elected to proceed. OPERATIVE PROCEDURE IN DETAIL: Informed consent was verified. Jerson Medel was properly identified, taken to operating room, placed on the cystoscopy table in supine position. Anesthesia was uneventfully begun. The patient was then carefully and gently repositioned in the dorsal lithotomy position with all pressure points well padded. His genitalia were prepared and draped in usual sterile fashion. A 22.5-Burkinan cystoscope sheath with the visual obturator in place was atraumatically inserted into patient's urethra. It was guided down an unremarkable distal urethra through the bulbar region, where there was some wide-caliber probably not clinically significant stricturing. We gently traversed through the stent strictures and went through the normal sphincteric region and went through the prostate bed, was significant for visually obstructing BPH with kissing lateral lobes and elevated median bar. Panendoscopy of urinary bladder revealed grade-4 trabeculations with multiple diverticula with no suspicious lesions, no tumors, and no stones. Ureteral catheter was used to cannulate each ureter and retrograde ureteropyelograms were performed. Interpretation of retrograde ureteropyelography: Contrast was instilled in retrograde fashion bilaterally. There were no tumors, no stones, and no diverticula. Unobstructed drainage was observed bilaterally fluoroscopically. Resectoscope sheath was atraumatically placed and then, we proceeded with utilizing the plasma button electrode from the bladder neck too but never past the verumontanum and down to the surgical capsule. We used pinpoint electrocautery to achieve hemostasis. The cystoscope was withdrawn. Candelaria catheter was placed. It was irrigated to and fro to ensure it worked properly and the patient was uneventfully reversed from anesthesia, taken to recovery room in stable condition. There were no complications to the procedure. Patient tolerated the procedure well. Will plan on routine post TUR care. Job#: [id number] cc:DR ERAN NEGRON
== END 2018-07-20 15:24 | disposition home or self-care (01) | DRG 713 ==
LOC: OR 07:36 → PACU V 15:00 → MED/SURG 16:27
PROVIDERS: ADMIT Internal Medicine; ATTEND Internal Medicine
PROC: BT141ZZ Fluoroscopy of Kidneys, Ureters and Bladder using Low Osmolar Contrast (ICD-10-PCS; 2018-07-15)
PROC: 0T788ZZ Dilation of Bilateral Ureters, Via Natural or Artificial Opening Endoscopic (ICD-10-PCS; principal; 2018-07-15 09:30)
PROC: 0VT08ZZ Resection of Prostate, Via Natural or Artificial Opening Endoscopic (ICD-10-PCS; 2018-07-15 09:30)
DX: N40.1 Benign prostatic hyperplasia with lower urinary tract symptoms (principal); T83.511A Infection and inflammatory reaction due to indwelling urethral catheter, initial encounter; N17.9 Acute kidney failure, unspecified; N39.0 Urinary tract infection, site not specified; R33.8 Other retention of urine; I25.10 Atherosclerotic heart disease of native coronary artery without angina pectoris; I11.9 Hypertensive heart disease without heart failure; Z95.1 Presence of aortocoronary bypass graft; Z95.0 Presence of cardiac pacemaker; E78.5 Hyperlipidemia, unspecified; E83.42 Hypomagnesemia; R00.1 Bradycardia, unspecified; N41.9 Inflammatory disease of prostate, unspecified
CPT/HCPCS: 36415; 70450; 71046; 74420; 80048; 83735; 84100; 85025; 93005; 96361; J0360; J0696; J1100; J1580; J2001; J2405; J3475; J7050

== ENCOUNTER 2018-11-18 11:55 | Emergency (ER) | payer MEDICARE ==
[~2018-11-18] VITALS: Ht 165.1 cm; Wt 57.6 kg
[~2018-11-18 11:55] MED LIST changes: +ASCORBIC ACID500 MG PO; +CIPRO500 MG PO; -IOPAMIDOL 610MG/1ML 300 MG/ML VIAL IV ONE; +TYLENOL # 31 EA PO; +TYLENOL WITH C1 EACH PO
--- OUTSIDE RECORDS SUMMARY | 2018-11-18 11:59 | XMS REPORT | Clinical Summary ---
Author Author [facility] Organization 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 Active atorvastatin (LIPITOR) 20 Take 20 mg by 0 MG tablet mouth nightly . Active prasugrel (EFFIENT) 5 mg Take 5 mg by 0 tablet mouth. 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 Last Filed Vital Signs Not on file Plan of Treatment Not on file Results Not on fileafter 11/17/2017 Insurance Payer Benefit Subscriber ID Type Phone Address Plan / Group MEDICARE MEDICARE A xxxxxxxxxx Medicare B MCR SUPPLEMENT/INDIVIDUAL AARP/UNITE xxxxxxxxxxx Medigap D HEALTHCARE Advance Directives For more information, please contact: [facility] [place], [place] [address] [place] [address] Date Inactivated Comments Code Status Date Activated 07/02/2015 7:58 PM Full Code 06/23/2015 3:08 PM This code status was determined by: Patient 02/21/2015 12:48 PM Full Code 02/20/2015 1:21 PM This code status was determined by: Patient 02/20/2015 1:21 PM Full Code 02/20/2015 7:39 AM This code status was determined by: Patient
--- OUTSIDE RECORDS SUMMARY | 2018-11-18 12:00 | XMS REPORT | Continuity of Care Document ---
Author Author [facility] Interface Address Unknown Phone Unavailable Problems Problem Status Onset Date Classification Date Reported Comments Source Contusion of right shoulder, initial encounter 01/01/2018 03/31/2018 [facility] [id number] Active 12/23/2017 [facility] Hematuria, unspecified 11/29/2017 03/03/2018 [facility] R31.0 GROSS HEMATURIA *ADD-ON* Active 11/25/2017 [facility] R31.9 Active 11/10/2017 [facility] DX: R33.9=RETENTION OF URINE, UNSPECIFIE Active 07/16/2016 [facility] SUPRATHERAPEUTIC INR, CELLULITIS TO RLE Active 04/16/2015 [facility] LEG SWELLING Active 04/16/2015 [facility] Dysuria<sup>7</sup> Resolved 03/29/2015 Problem 03/31/2018 Data migrated from [employer] on 04/12/15. [facility] Urinary tract infectious disease<sup>10</sup> Active 03/29/2015 Problem 03/31/2018 Data migrated from [employer] on 04/12/15. [facility] Dysuria<sup>5</sup> Resolved 03/29/2015 Problem 04/22/2015 Data migrated from [employer] on 04/12/15. [facility] Urinary tract infectious disease<sup>8</sup> Active 03/29/2015 Problem 04/22/2015 Data migrated from [employer] on 04/12/15. [facility] Benign prostatic hypertrophy with outflow obstruction<sup>2</sup> Active 10/26/2014 Problem 03/31/2018 Data migrated from [employer] on 03/04/15. [facility] Coronary arteriosclerosis<sup>6</sup> Active 10/26/2014 Problem 03/31/2018 Data migrated from [employer] on 03/04/15. [facility] Coronary arteriosclerosis<sup>4</sup> Active 10/26/2014 Problem 04/22/2015 Data migrated from [employer] on 03/04/15. [facility] Warfarin therapy started<sup>9</sup> Active 10/26/2014 Problem 04/22/2015 Data migrated from [employer] on 03/04/15. [facility] FALL Active 02/19/2014 [facility] FREQUENT FALLS Active 02/19/2014 [facility] Peripheral vascular disease<sup>9</sup> Active 12/07/2013 Problem 03/31/2018 Data migrated from [employer] on 03/04/15. [facility] [place] Per[facility] vascular disease<sup>7</sup> Active 12/07/2013 Problem 04/22/2015 Data migrated from [employer] on 03/04/15. [facility] Benign hypertension<sup>1</sup> Active 10/06/1958 Problem 03/31/2018 Data migrated from [employer] on 03/04/15. [facility] [place] Chronic kidney disease stage 3<sup>5</sup> Active 10/06/1958 Problem 03/31/2018 Data migrated from [employer] on 03/04/15. [facility] [place] Hyperlipidemia<sup>8</sup> Active 10/06/1959 Problem 03/31/2018 Data migrated from [employer] on 03/04/15. [facility] Chronic kidney disease stage 3<sup>3</sup> Active 10/06/1959 Problem 04/22/2015 Data migrated from [employer] on 03/04/15. [facility] Hyperlipidemia<sup>6</sup> Active 10/06/1958 Problem 04/22/2015 Data migrated from [employer] on 03/04/15. 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 [facility] Chronic anticoagulation Active Problem 03/31/2018 [facility] S/P CABG x 3 Active Problem 03/31/2018 [facility] Urinary retention Active Problem 03/31/2018 [facility] Final: 04/22/2015 [facility] PVD - Peripheral vascular disease Active Problem 04/22/2015 [facility] ABNRML COAGULATION PRFLE Active [facility] RETENTION OF URINE, UNSPECIFIED Active [facility] CONTUSION OF RIGHT SHOULDER, INITIAL ENC Active [facility] HEMATURIA, UNSPECIFIED Active [facility] GROSS HEMATURIA Active [facility] Medications Medication Details Route Status Patient Instructions Ordering Provider Order Date Source Levofloxacin 500 MG Oral Tablet [Levaquin] 500 mg=1 tab, PO, Q24H, X 10 day, # 10 tab, 0 Refill(s), Pharmacy: [facility] [id number] No Longer Active 12/04/2017 [facility] Aspirin Enteric Coated 81 mg oral delayed release tablet 81 mg=1 tab, PO, Daily, # 30 tab, 0 Refill(s) Active 04/19/2015 [facility] Furosemide 20 MG Oral Tablet [Lasix] 20 mg=1 tab, PO, Daily, # 30 tab, 0 Refill(s) Active 04/19/2015 [facility] Warfarin Sodium 2 MG Oral Tablet [Coumadin] 2 mg=1 tab, PO, Daily, # 30 tab, 0 Refill(s) Active 04/19/2015 [facility] tramadol hydrochloride 50 MG Oral Tablet [Ultram] 1 - 2 tabs, PO, Q4-6H, PRN Pain Score 1-5, X 4 day, # 30 tab, 0 Refill(s) Active 04/19/2015 [facility] Doxycycline 100 MG Oral Capsule 100 mg=1 cap, PO, Daily, X 7 day, # 7 cap, 0 Refill(s) Active 04/19/2015 [facility] Warfarin 2.5 mg, 1 tab, Route: PO, Drug form: TAB, Q5PM, Dosing Weight 65.909, kg, Priority: Routine, Start date: 04/18/15 17:00:00, Duration: 7 day, Stop date: 04/24/15 17:00:00Notes: Nurse to ensure documentat ion of patient education per anticoagulation policy. Avoid large intake of vitamin-K containing foods diet. (Same As: Coumadin) No Longer Active 04/18/2015 [facility] Ancef + Sodium Chloride 0.9% IV 100 mL 1 gm, Route: IVPB, [id number], Dosing Weight 65.909, kg, Start date: 04/18/15 9:00:00, Duration: 30 day, Stop date: 05/18/15 1:00:00Notes: (Same As: Puma Steinberg) MEDICATION WASTE Product Size: 1000 mg Product Wasted: ___ mg No Longer Active 04/18/2015 [facility] Aspirin 81 MG Enteric Coated Tablet 81 mg, 1 tab, Route: PO, Drug form: ECTAB, Daily, Dosing Weight 65.909, kg, Start date: 04/17/15 21:00:00, Duration: 30 day, Stop date: 05/17/15 9:00:00Notes: Do not crush or chew. (Same As: Ecotrin) No Longer Active 04/18/2015 [facility] Lasix 20 mg, 2 mL, Route: IVP, Drug form: INJ, Daily, Dosing Weight 65.909, kg, Priority: NOW, Start date: 04/17/15 20:26:00, Duration: 30 day, Stop date: 05/17/15 9:00:00Notes: (Same as: Lasix) No Longer Active 04/18/2015 [facility] Coumadin 5 mg, 1 tab, Route: PO, Drug form: TAB, Q5PM, Dosing Weight 65.909, kg, Start date: 04/17/15 17:00:00, Duration: 5 day, Stop date: 04/21/15 17:00:00Notes: Nurse to ensure documentation of patient education per anticoagulation policy. Avoid large intake of vitamin-K containing foods diet. (Same As: Coumadin) Inactive 04/17/2015 [facility] Losartan 50 mg, 1 tab, Route: PO, Drug form: TAB, Daily, Dosing Weight 65.909, kg, Start date: 04/17/15 9:00:00, Duration: 30 day, Stop date: 05/16/15 9:00:00Notes: (Same as: Cozaar) No Longer Active 04/17/2015 [facility] Ceftriaxone 1 gm, Route: IVPB, [id number], Dosing Weight 65.909, kg, Start date: 04/17/15 8:00:00, Duration: 30 day, Stop date: 05/16/15 20:00:00Notes: (Same As: Rocephin). Use with 100ml NS mini-bag PLUS and infuse over 30 min MEDICATION WASTE Product Size: 1000 mg Product Wasted: ___ mg Inactive 04/17/2015 [facility] atorvastatin 20 mg, 2 tab, Route: PO, Drug form: TAB, Bedtime, Dosing Weight 65.909, kg, Start date: 04/16/15 21:00:00, Duration: 30 day, Stop date: 05/15/15 21:00:00Notes: (Same As: Lipitor) No Longer Active 04/17/2015 [facility] Docusate Sodium 100 MG Oral Capsule [Colace] 100 mg, 1 cap, Route: PO, Drug form: CAP, BID, Dosing Weight 63.636, kg, Start date: 04/16/15 17:00:00, Duration: 30 day, Stop date: 05/16/15 9:00:00Notes: (Same as: Colace) (Do Not Crush) No Longer Active 04/16/2015 [facility] Niacin 1,000 mg, PO, Bedtime, 0 Refill(s) Active 04/16/2015 [facility] Folic Acid 1 MG Oral Tablet 4 mg=4 tab, PO, Daily, 0 Refill(s) Active 04/16/2015 [facility] Saline Flush 0.9% 10 ml, Route: IVP, Drug Form: INJ, Dosing Weight 63.636, kg, PRN, PRN Line Flush, Start date: 04/16/15 13:14:00, Duration: 30 day, Stop date: 05/16/15 13:13:00Notes: (Same as: BD Posiflush) No Longer Active 04/16/2015 [facility] Morphine 2 mg, 1 mL, Route: IVP, Drug form: INJ, Q3H, Dosing Weight 63.636, kg, PRN Pain Score 4-6, Start date: 04/16/15 13:14:00, Duration: 30 day, Stop date: 05/16/15 13:13:00Notes: (Same as:MORPhine Sulfate) No Longer Active 04/16/2015 [facility] Ondansetron 4 mg, 2 mL, Route: IVP, Drug form: INJ, Q8H, Dosing Weight 63.636, kg, PRN Nausea & Vomiting, Start date: 04/16/15 13:14:00, Duration: 30 day, Stop date: 05/16/15 13:13:00Notes: (Same as: Zofran) MEDICATION WASTE Product Size: 4 mg Product Wasted: ___ mg No Longer Active 04/16/2015 [facility] Ambien 5 mg, 1 tab, Route: PO, Drug form: TAB, Bedtime, Dosing Weight 63.636, kg, PRN Insomnia, Start date: 04/16/15 12:37:00, Duration: 30 day, Stop date: 05/16/15 12:36:00Notes: (Same As: Ambien) No Longer Active 04/16/2015 [facility] Zofran 4 mg, 2 mL, Route: IVP, Drug form: INJ, Q8H, Dosing Weight 63.636, kg, PRN as needed for nausea/vomiting, Priority: STAT, Start date: 04/16/15 12:37:00, Duration: 30 day, Stop date: 05/16/15 12:36:00Notes: (Same as: Zofran) MEDICATION WASTE Product Size: 4 mg Product Wasted: ___ mg Inactive 04/16/2015 [facility] Vitamin K1 5 mg, Route: IVPB, ONCE, Dosing Weight 63.636, kg, Start date: 04/16/15 11:47:00, Duration: 1 doses or times, Stop date: 04/16/15 11:47:00 Inactive 04/16/2015 [facility] Vitamin K1 5 mg, Route: PO, Drug form: TAB, ONCE, Dosing Weight 63.636, kg, Start date: 04/16/15 11:35:00, Duration: 1 doses or times, Stop date: 04/16/15 11:35:00 Inactive 04/16/2015 [facility] Tylenol 650 mg, Route: PO, Drug form: TAB, ONCE, Dosing Weight 63.636, kg, Priority: STAT, Start date: 04/16/15 10:08:00, Stop date: 04/16/15 10:08:00 Inactive 04/16/2015 [facility] Warfarin 5 mg, 2 tab, Route: PO, Drug form: TAB, Q-M-W-F, Dosing Weight 67.273, kg, Start date: 02/21/14 17:00:00, Duration: 30 day, Stop date: 03/21/14 17:00:00Notes: Nurse to ensure documentation of patient ed ucation per anticoagulation policy. Avoid large intake of vitamin-K containing foods diet. (Same As: Coumadin) No Longer Active 02/21/2014 [facility] atorvastatin 20 mg, 2 tab, Route: PO, Drug form: TAB, Bedtime, Dosing Weight 67.273, kg, Start date: 02/20/14 21:00:00, Duration: 30 day, Stop date: 03/21/14 21:00:00Notes: (Same As: Lipitor) Inactive 02/21/2014 [facility] Warfarin 2.5 mg, 1 tab, Route: PO, Drug form: TAB, W-Vp-Ju-Sa-Concepcion, Dosing Weight 67.273, kg, Start date: 02/20/14 17:00:00, Duration: 30 day, Stop date: 03/20/14 17:00:00Notes: Nurse to ensure documentation of patient education per anticoagulation policy. Avoid large intake of vitamin-K containing foods diet. (Same As: Coumadin) Inactive 02/20/2014 [facility] Flomax 0.4 mg, 1 cap, Route: PO, Drug form: CAP, After Dinner, Dosing Weight 67.273, kg, Start date: 02/20/14 17:00:00, Duration: 30 day, Stop date: 03/21/14 17:00:00Notes: (Same As: Flomax) "Do Not Crush" Inactive 02/20/2014 [facility] Acetaminophen 325 mg, 1 tab, Route: PO, Drug form: TAB, TID, Dosing Weight 67.273, kg, PRN Pain, Start date: 02/20/14 15:58:00, Duration: 30 day, Stop date: 03/22/14 15:57:00Notes: Do not exceed 4 gm/day. (Same as: Tylenol) Inactive 02/20/2014 [facility] Cefuroxime 250 MG Oral Tablet [Ceftin] 250 mg=1 tab, PO, BID, # 14 tab, 0 Refill(s) Active 02/20/2014 [facility] Losartan 50 mg, 1 tab, Route: PO, Drug form: TAB, Daily, Dosing Weight 67.273, kg, Start date: 02/20/14 9:00:00, Duration: 30 day, Stop date: 03/21/14 9:00:00Notes: (Same as: Cozaar) Inactive 02/20/2014 [facility] Hydralazine Hydrochloride 50 MG Oral Tablet 50 mg, 1 tab, Route: PO, Drug form: TAB, Q8H, Dosing Weight 67.273, kg, Start date: 02/20/14 0:00:00, Duration: 30 day, Stop date: 03/21/14 16:00:00Notes: (Same as: Apresoline) May interfere w/enteral feedings Take With Food Inactive 02/20/2014 [facility] Saline Flush 0.9% 5 ml, Route: IVP, Drug Form: INJ, Dosing Weight 67.273, kg, PRN, PRN Line Flush, Start date: 02/19/14 16:12:00, Duration: 30 day, Stop date: 03/21/14 16:11:00Notes: (Same as: BD Posiflush) No Longer Active 02/19/2014 [facility] Sodium Chloride 0.154 MEQ/ML Injectable Solution 1,000 mL, Rate: 50 ml/hr, Infuse over: 20 hr, Route: IV, Dosing Weight 67.273 kg, Total Volume: 1,000, Start date: 02/19/14 16:12:00, Duration: 30 day, Stop date: 03/21/14 16:11:00 No Longer Active 02/19/2014 [facility] Ceftriaxone 1 gm, Route: IVPB, Q24H, Dosing Weight 67.273, kg, Priority: STAT, Start date: 02/19/14 16:12:00, Duration: 30 day, Stop date: 03/20/14 16:12:00Notes: (Same As: Rocephin). Use with 100ml NS mini-bag PLUS and infuse over 30 min No Longer Active 02/19/2014 [facility] Docusate 100 mg, 1 cap, Route: PO, Drug form: CAP, BID, Dosing Weight 67.273, kg, PRN Constipation, Start date: 02/19/14 16:12:00, Duration: 30 day, Stop date: 03/21/14 16:11:00Notes: (Same as: Colace) (Do Not Crush) No Longer Active 02/19/2014 [facility] Ondansetron 4 mg, 2 mL, Route: IVP, Drug form: INJ, Q8H, Dosing Weight 67.273, kg, PRN Nausea & Vomiting, Start date: 02/19/14 16:12:00, Duration: 30 day, Stop date: 03/21/14 16:11:00Notes: (Same as: Zofran) No Longer Active 02/19/2014 [facility] Acetaminophen 650 mg, 20.3 mL, Route: PO, Drug form: LIQ, Q4H, Dosing Weight 67.273, kg, PRN Pain 1-3/Temp > 100.4 F, Start date: 02/19/14 16:12:00, Duration: 30 day, Stop date: 03/21/14 16:11:00Notes: Max daxa [id number]/day (4 gm/day). (Same as: Tylenol) No Longer Active 02/19/2014 [facility] nitroglycerin 0.4 mg sublingual tablet 0.4 mg, 1 tab, Route: SL, Drug form: TAB, Q5Min, PRN Chest Pain, Start date: 02/19/14 15:11:00, Duration: 30 day, Stop date: 03/21/14 15:10:00Notes: (Same as:Nitroquick, Nitrostat) "Do Not Crush" Sublingual tablet No Longer Active 02/19/2014 [facility] atropine 0.5 mg, 5 mL, Route: IVP, Drug form: INJ, PRN, PRN Bradycardia, Start date: 02/19/14 15:11:00, Duration: 30 day, Stop date: 03/21/14 15:10:00 No Longer Active 02/19/2014 [facility] warfarin 2.5 mg oral tablet 5 mg=2 tab, PO, Q-M-W-, # 30 tab, 0 Refill(s) Active 02/19/2014 [facility] Effient 10 mg, PO, Daily, 0 Refill(s) Active 02/19/2014 [facility] Tamsulosin hydrochloride 0.4 MG Oral Capsule [Flomax] 0.4 mg=1 cap, PO, After Dinner, # 30 cap, 0 Refill(s) Active 02/19/2014 [facility] Hydralazine Hydrochloride 50 MG Oral Tablet 50 mg=1 tab, PO, Q8H, # 120 tab, 0 Refill(s) Active 02/19/2014 [facility] losartan 50 mg oral tablet 50 mg=1 tab, PO, Daily, # 30 tab, 0 Refill(s) Active 02/19/2014 [facility] atorvastatin 20 mg oral tablet 20 mg=1 tab, PO, Bedtime, # 30 tab, 0 Refill(s) Active 02/19/2014 [facility] Sodium Chloride 0.154 MEQ/ML Injectable Solution 500 mL, 500 ml/hr, Infuse Over: 1 hr, Route: IV, ONCE, Priority: STAT, Dosing Weight 67.273 kg, Start date: 02/19/14 12:13:00, Duration: 1 doses or times, Stop date: 02/19/14 12:13:00 Inactive 02/19/2014 [facility] Hydralazine 50 mg, Route: PO, ONCE, Dosing Weight 67.273, kg, Start date: 02/19/14 12:12:00, Stop date: 02/19/14 12:12:00 Inactive 02/19/2014 [facility] Losartan 50 mg, 1 tab, Route: PO, Drug form: TAB, ONCE, Dosing Weight 67.273, kg, Start date: 02/19/14 12:11:00, Stop date: 02/19/14 12:11:00Notes: (Same as: Lesly) Inactive 02/19/2014 [facility] Allergies, Adverse Reactions, Alerts Substance Category [...] Eagle Blevins MD 12/23/17 17:57 FINAL REPORT [facility] URINE AND STOOL POC UA Nit Negative *NA* (12/10/17 11:15 AM) Negative 12/10/2017 [facility] URINE AND STOOL POC UA LeukEst Moderate *ABN* (12/10/17 11:15 AM) Negative 12/10/2017 [facility] URINE AND STOOL POC UA Uro 0.2 EU/dL 0.1 - 1.0 12/10/2017 [facility] URINE AND STOOL POC UA Turbidity Clear *NA* (12/10/17 11:15 AM) Clear 12/10/2017 [facility] URINE AND STOOL POC UA Bili Negative *NA* (12/10/17 11:15 AM) Negative 12/10/2017 [facility] URINE AND STOOL POC UA Ket Negative mg/dL Negative mg/dL 12/10/2017 [facility] URINE AND STOOL POC UA Bld Large *ABN* (12/10/17 11:15 AM) Negative 12/10/2017 [facility] URINE AND STOOL POC UA Glu Negative mg/dL Negative mg/dL 12/10/2017 [facility] URINE AND STOOL POC UA Color Yellow *NA* (12/10/17 11:15 AM) Yellow 12/10/2017 [facility] URINE AND STOOL POC UA pH 5.5 5.0 - 8.0 12/10/2017 [facility] URINE AND STOOL POC UA Prot 100 mg/dL Negative mg/dL 12/10/2017 [facility] URINE AND STOOL POC UA SG 1.015 <=1.030 12/10/2017 [facility] Retroperitoneal Complete US Retroperitoneal Complete US BILATERAL [...] urine and a small amount of clot. [id number] 11/25/2017 - - Read by: Feng Malone MD Dictated Date/time: 11/26/17 09:38 Electronically Signed by: Feng Malone MD 11/26/17 09:47 FINAL REPORT [facility] Bladder US Bladder US BLADDER ULTRASOUND: [...] to exclude tumor, if not recently done. [id number] 07/19/2016 - - Read by: Feng Malone MD Dictated Date/time: 07/19/16 15:37 Electronically Signed by: Feng Malone MD 07/19/16 15:43 FINAL REPORT [facility] PANEL eGFR 46 mL/min/1.73m2 04/19/2015 Result Comment: [...] should be multiplied by the estimated BMI. [facility] CHEM PANEL Glucose Lvl 94 mg/dL 70 - 99 04/19/2015 [facility] CHEM PANEL BUN 27 mg/dL 7 - 22 04/19/2015 [facility] CHEM PANEL Creatinine Lvl 1.4 mg/dL 0.5 - 1.4 04/19/2015 [facility] CHEM PANEL Calcium Lvl 8.1 mg/dL 8.5 - 10.5 04/19/2015 [facility] CHEM PANEL CO2 24 meq/L 24 - 32 04/19/2015 [facility] CHEM PANEL Potassium Lvl 3.8 meq/L 3.5 - 5.1 04/19/2015 [facility] CHEM PANEL Chloride Lvl 106 meq/L 95 - 109 04/19/2015 [facility] CHEM PANEL Sodium Lvl 140 meq/L 135 - 145 04/19/2015 [facility] CHEM PANEL AGAP 13.8 meq/L 10.0 - 20.0 04/19/2015 [facility] MCH 27.3 pg 27.0 - 31.0 04/19/2015 [facility] Hct 28.3 % 42.0 - 54.0 04/19/2015 [facility] MCV 81.9 fL 80.0 - 94.0 04/19/2015 [facility] Hgb 9.4 g/dL 14.0 - 18.0 04/19/2015 [facility] MPV 9.0 fL 7.4 - 10.4 04/19/2015 [facility] RBC 3.45 M/CMM 4.70 - 6.10 04/19/2015 [facility] RDW 16.0 % 11.5 - 14.5 04/19/2015 [facility] Platelet 222 K/CMM 133 - 450 04/19/2015 [facility] MCHC 33.3 g/dL 32.0 - 36.0 04/19/2015 [facility] WBC 8.2 K/CMM 3.7 - 10.4 04/19/2015 [facility] HEMATOLOGY INR 2.86 0.85 - 1.17 04/19/2015 [facility] PT 31.0 s 12.0 - 14.7 04/19/2015 [facility] Basophils # 0.1 K/CMM 0.0 - 0.2 04/19/2015 [facility] Lymphocytes # 2.4 K/CMM 1.0 - 5.5 04/19/2015 [facility] Monocytes # 0.6 K/CMM 0.0 - 0.8 04/19/2015 [facility] HEMATOLOGY Segs-Bands # 4.8 K/CMM 1.5 - 8.1 04/19/2015 [facility] HEMATOLOGY Basophils 0.9 % 0.0 - 1.0 04/19/2015 [facility] HEMATOLOGY Eosinophils # 0.3 K/CMM 0.0 - 0.5 04/19/2015 [facility] HEMATOLOGY Monocytes 7.6 % 2.0 - 12.0 04/19/2015 [facility] HEMATOLOGY Eosinophils 3.8 % 0.0 - 4.0 04/19/2015 [facility] HEMATOLOGY Lymphocytes 29.0 % 20.0 - 40.0 04/19/2015 [facility] HEMATOLOGY Segs 58.7 % 45.0 - 75.0 04/19/2015 [facility] ELECTROLYTES AGAP 11.2 meq/L 10.0 - 20.0 04/18/2015 [facility] ELECTROLYTES eGFR 42 mL/min/1.73m2 04/18/2015 Result [...] should be multiplied by the estimated BMI. [facility] ELECTROLYTES Calcium Lvl 8.3 mg/dL 8.5 - 10.5 04/18/2015 [facility] ELECTROLYTES CO2 27 meq/L 24 - 32 04/18/2015 [facility] ELECTROLYTES Potassium Lvl 4.2 meq/L 3.5 - 5.1 04/18/2015 [facility] ELECTROLYTES Chloride Lvl 107 meq/L 95 - 109 04/18/2015 [facility] ELECTROLYTES Sodium Lvl 141 meq/L 135 - 145 04/18/2015 [facility] ELECTROLYTES BUN 26 mg/dL 7 - 22 04/18/2015 [facility] ELECTROLYTES Glucose Lvl 90 mg/dL 70 - 99 04/18/2015 [facility] ELECTROLYTES Creatinine Lvl 1.5 mg/dL 0.5 - 1.4 04/18/2015 [facility] HEMATOLOGY MPV 8.9 fL 7.4 - 10.4 04/18/2015 [facility] HEMATOLOGY Platelet 220 K/CMM 133 - 450 04/18/2015 [facility] HEMATOLOGY RDW 16.6 % 11.5 - 14.5 04/18/2015 [facility] HEMATOLOGY MCH 27.2 pg 27.0 - 31.0 04/18/2015 [facility] MCHC 33.2 g/dL 32.0 - 36.0 04/18/2015 [facility] HEMATOLOGY MCV 81.7 fL 80.0 - 94.0 04/18/2015 [facility] HEMATOLOGY Hgb 9.2 g/dL 14.0 - 18.0 04/18/2015 [facility] HEMATOLOGY Hct 27.8 % 42.0 - 54.0 04/18/2015 [facility] HEMATOLOGY WBC 8.2 K/CMM 3.7 - 10.4 04/18/2015 [facility] HEMATOLOGY RBC 3.40 M/CMM 4.70 - 6.10 04/18/2015 [facility] HEMATOLOGY INR 1.82 0.85 - 1.17 04/18/2015 [facility] HEMATOLOGY PT 21.5 s 12.0 - 14.7 04/18/2015 [facility] HEMATOLOGY Segs 59.7 % 45.0 - 75.0 04/18/2015 [facility] HEMATOLOGY Lymphocytes 25.8 % 20.0 - 40.0 04/18/2015 [facility] HEMATOLOGY Segs-Bands # 4.9 K/CMM 1.5 - 8.1 04/18/2015 [facility] HEMATOLOGY Monocytes # 0.7 K/CMM 0.0 - 0.8 04/18/2015 [facility] HEMATOLOGY Eosinophils # 0.4 K/CMM 0.0 - 0.5 04/18/2015 [facility] HEMATOLOGY Basophils # 0.1 K/CMM 0.0 - 0.2 04/18/2015 [facility] HEMATOLOGY Lymphocytes # 2.1 K/CMM 1.0 - 5.5 04/18/2015 [facility] HEMATOLOGY Basophils 0.9 % 0.0 - 1.0 04/18/2015 [facility] HEMATOLOGY Monocytes 8.6 % 2.0 - 12.0 04/18/2015 [facility] HEMATOLOGY Eosinophils 5.0 % 0.0 - [...] should be multiplied by the estimated BMI. [facility] CHEM PANEL Glucose Lvl 89 mg/dL 70 - 99 04/17/2015 [facility] CHEM PANEL Calcium Lvl 8.2 mg/dL 8.5 - 10.5 04/17/2015 [facility] CHEM PANEL BUN 26 mg/dL 7 - 22 04/17/2015 [facility] CHEM PANEL Creatinine Lvl 1.5 mg/dL 0.5 - 1.4 04/17/2015 [facility] CHEM PANEL CO2 20 meq/L 24 - 32 04/17/2015 [facility] CHEM PANEL Chloride Lvl 110 meq/L 95 - 109 04/17/2015 [facility] CHEM PANEL Potassium Lvl 4.4 meq/L 3.5 - 5.1 04/17/2015 [facility] CHEM PANEL Sodium Lvl 141 meq/L 135 - 145 04/17/2015 [facility] CHEM PANEL AGAP 15.4 meq/L 10.0 - 20.0 04/17/2015 [facility] HEMATOLOGY INR 1.48 0.85 - 1.17 04/17/2015 [facility] HEMATOLOGY PT 18.2 s 12.0 - 14.7 04/17/2015 [facility] MCV 83.5 fL 80.0 - 94.0 04/17/2015 [facility] MCH 27.1 pg 27.0 - 31.0 04/17/2015 [facility] MCHC 32.4 g/dL 32.0 - 36.0 04/17/2015 [facility] RDW 16.8 % 11.5 - 14.5 04/17/2015 [facility] Platelet 206 K/CMM 133 - 450 04/17/2015 [facility] HEMATOLOGY MPV 9.1 fL 7.4 - 10.4 04/17/2015 [facility] HEMATOLOGY WBC 8.9 K/CMM 3.7 - 10.4 04/17/2015 [facility] HEMATOLOGY Hct 30.2 % 42.0 - 54.0 04/17/2015 [facility] HEMATOLOGY Hgb 9.8 g/dL 14.0 - 18.0 04/17/2015 [facility] HEMATOLOGY RBC 3.62 M/CMM 4.70 - 6.10 04/17/2015 [facility] HEMATOLOGY Eosinophils 2.5 % 0.0 - 4.0 04/17/2015 [facility] HEMATOLOGY Basophils 0.7 % 0.0 - 1.0 04/17/2015 [facility] HEMATOLOGY Segs-Bands # 5.8 K/CMM 1.5 - 8.1 04/17/2015 [facility] HEMATOLOGY Lymphocytes 23.9 % 20.0 - 40.0 04/17/2015 [facility] HEMATOLOGY Segs 65.3 % 45.0 - 75.0 04/17/2015 [facility] HEMATOLOGY Monocytes 7.6 % 2.0 - 12.0 04/17/2015 [facility] HEMATOLOGY Lymphocytes # 2.1 K/CMM 1.0 - 5.5 04/17/2015 [facility] HEMATOLOGY Eosinophils # 0.2 K/CMM 0.0 - 0.5 04/17/2015 [facility] HEMATOLOGY Monocytes # 0.7 K/CMM 0.0 - 0.8 04/17/2015 [facility] HEMATOLOGY Basophils # 0.1 K/CMM 0.0 - 0.2 04/17/2015 [facility] LIPIDS CHD Risk 2.28 4.00 - 7.30 04/17/2015 [facility] LIPIDS HDL 53 mg/dL >=61 mg/dL 04/17/2015 [facility] LIPIDS VLDL 22 04/17/2015 [facility] LIPIDS LDL (Calculated) 46 mg/dL <=99 mg/dL 04/17/2015 [facility] LIPIDS Chol 121 mg/dL <=199 mg/dL 04/17/2015 [facility] LIPIDS Trig 110 mg/dL <=149 mg/dL 04/17/2015 [facility] CARDIAC ENZYMES BNP 273 pg/mL <=100 pg/mL 04/16/2015 [facility] URINE AND STOOL UA Urobilinogen <=1.0 mg/dL 0.1 - 1.0 04/16/2015 [facility] URINE AND STOOL UA Color Yellow *NA* (04/16/15 6:29 PM) Yellow 04/16/2015 [facility] URINE AND STOOL UA Glucose Negative mg/dL Negative mg/dL 04/16/2015 [facility] URINE AND STOOL UA Turbidity Marked *ABN* (04/16/15 6:29 PM) Clear 04/16/2015 [facility] URINE AND STOOL UA Spec Grav 1.014 <=1.030 04/16/2015 [facility] URINE AND STOOL UA Sq Epi Occasional /LPF Few /LPF 04/16/2015 [facility] URINE AND STOOL UA Leuk Est Small *ABN* (04/16/15 6:29 PM) Negative 04/16/2015 [facility] URINE AND STOOL UA Protein 30 mg/dL Negative mg/dL 04/16/2015 [facility] URINE AND STOOL UA pH 6.0 5.0 - 8.0 04/16/2015 [facility] URINE AND STOOL UA RBC null 0 - 2 04/16/2015 [facility] URINE AND STOOL UA WBC 69 /HPF 0 - 5 04/16/2015 [facility] URINE AND STOOL UA Blood Large *ABN* (04/16/15 6:29 PM) Negative 04/16/2015 [facility] URINE AND STOOL UA Bili Negative *NA* (04/16/15 6:29 PM) Negative 04/16/2015 [facility] URINE AND STOOL UA Ketones Negative mg/dL Negative mg/dL 04/16/2015 [facility] URINE AND STOOL UA Bacteria Occasional /HPF None Seen /HPF 04/16/2015 [facility] URINE AND STOOL UA Nitrite Negative (04/16/15 6:29 PM) Negative 04/16/2015 [facility] Chest 1view DX Chest 1view DX [...] Feng Malone MD 04/16/15 22:37 FINAL REPORT [facility] HEMATOLOGY PTT 142.5 s 22.9 - 35.8 04/16/2015 Result Comment: Critical Result(s) called to HANANE at _04/16/2015 11:05 by_[facility]. Read back OK. SPECIMEN CHECKED FOR CLOT; SIMILAR RESULTS ON PREVIOUS SPECIMEN [facility] CHEM PANEL Globulin 3.7 g/dL 2.0 - 4.0 04/16/2015 [facility] CHEM PANEL A/G Ratio 0.9 0.7 - 1.6 04/16/2015 [facility] CHEM PANEL B/C Ratio 17 6 - 25 04/16/2015 [facility] CHEM PANEL AST 16 unit/L 0 - 37 04/16/2015 [facility] CHEM PANEL Total Protein 7.0 g/dL 6.4 - 8.4 04/16/2015 [facility] CHEM PANEL ALT 17 unit/L 0 - 65 04/16/2015 [facility] CHEM PANEL Alk Phos 161 unit/L 39 - 136 04/16/2015 [facility] CHEM PANEL Bili Total 0.6 mg/dL 0.2 - 1.3 04/16/2015 [facility] CHEM PANEL Albumin Lvl 3.3 g/dL 3.5 - 5.0 04/16/2015 [facility] Ext Lower Venous Doppler Unilat US [...] Dwaine Horton MD 04/16/15 12:09 FINAL REPORT [facility] Tibia fibula series DX Tibia fibula series DX HISTORY: Cellulitis, pain and swelling. Right tib-fib 2 views. No bony fracture subluxation or lesion. Arterial vascular calcifications within popliteal and tibial arteries. SL:04/16/2015 - - Read by: Dwaine Horton MD Dictated Date/time: 04/16/15 10:06 Electronically Signed by: Dwaine Horton MD 04/16/15 10:06 FINAL REPORT [facility] Knee AP and lateral Knee AP [...] Logan Parker MD 02/20/14 16:53 FINAL REPORT [facility] ANEMIA STUDY Vitamin B12 Lvl 469 pg/mL 254 - 1320 02/20/2014 [facility] IMMUNOLOGY T pallidum Ab Non Reactive (02/20/14 3:34 AM) Non Reactive 02/20/2014 [facility] IMMUNOLOGY RPR Ttr 1:1 *ABN* (02/20/14 3:34 AM) 02/20/2014 [facility] IMMUNOLOGY RPR Reactive 5 *ABN* (02/20/14 3:34 AM) Non Reactive 02/20/2014 5Result Comment: weakly reactive [facility] ELECTROLYTES AGAP 15.6 meq/L 10.0 - 20.0 02/20/2014 [facility] ELECTROLYTES eGFR 56 mL/min/1.73m2 02/20/2014 1Result [...] should be multiplied by the estimated BMI. [facility] ELECTROLYTES CO2 22 meq/L 24 - 32 02/20/2014 [facility] ELECTROLYTES Calcium Lvl 8.5 mg/dL 8.5 - 10.5 02/20/2014 [facility] ELECTROLYTES Chloride Lvl 108 meq/L 95 - 109 02/20/2014 [facility] ELECTROLYTES Glucose Lvl 101 mg/dL 70 - 99 02/20/2014 3Interpretive Data: Adult reference range values reflect the clinical guidelines of the [place] [employer]. [facility] ELECTROLYTES BUN 19 mg/dL 7 - 22 02/20/2014 [facility] ELECTROLYTES Potassium Lvl 3.6 meq/L 3.5 - 5.1 02/20/2014 [facility] ELECTROLYTES Sodium Lvl 142 meq/L 135 - 145 02/20/2014 [facility] ELECTROLYTES Creatinine Lvl 1.2 mg/dL 0.5 - 1.4 02/20/2014 [facility] Lymphocytes 7.8 % 20.0 - 40.0 02/20/2014 [facility] HEMATOLOGY Monocytes 5.7 % 2.0 - 12.0 02/20/2014 [facility] Segs-Bands # 11.3 K/CMM 1.5 - 8.1 02/20/2014 [facility] HEMATOLOGY Eosinophils 0.0 % 0.0 - 4.0 02/20/2014 [facility] HEMATOLOGY Basophils 0.3 % 0.0 - 1.0 02/20/2014 [facility] Lymphocytes # 1.0 K/CMM 1.0 - 5.5 02/20/2014 [facility] Basophils # 0.0 K/CMM 0.0 - 0.2 02/20/2014 [facility] Segs 86.2 % 45.0 - 75.0 02/20/2014 [facility] Eosinophils # 0.0 K/CMM 0.0 - 0.5 02/20/2014 [facility] Monocytes # 0.7 K/CMM 0.0 - 0.8 02/20/2014 [facility] PT 14.1 s 12.0 - 14.7 02/20/2014 [facility] INR 1.10 0.85 - 1.17 02/20/2014 6Interpretive Data: RECOMMENDED RANGES FOR PROTIME INR: 2.0-3.0 for most medical and surgical thromboembolic states. 2.5-3.5 for artificial heart valves and recurrent embolism. INR SHOULD BE USED ONLY FOR PATIENTS ON STABLE ANTICOAGULANT THERAPY. [facility] Hct 39.3 % 42.0 - 54.0 02/20/2014 [facility] MCHC 32.3 g/dL 32.0 - 36.0 02/20/2014 [facility] RDW 15.7 % 11.5 - 14.5 02/20/2014 [facility] MCH 28.5 pg 27.0 - 31.0 02/20/2014 [facility] MPV 9.4 fL 7.4 - 10.4 02/20/2014 [facility] Platelet 237 K/CMM 133 - 450 02/20/2014 [facility] MCV 88.2 fL 80.0 - 94.0 02/20/2014 [facility] HEMATOLOGY Hgb 12.7 g/dL 14.0 - 18.0 02/20/2014 [facility] HEMATOLOGY RBC 4.46 M/CMM 4.70 - 6.10 02/20/2014 [facility] HEMATOLOGY WBC 13.1 K/CMM 3.7 - 10.4 02/20/2014 [facility] THYROID PANEL TSH 1.490 uIU/mL 0.360 - 3.740 02/20/2014 [facility] CHEM PANEL A/G Ratio 0.8 0.7 - 1.6 02/19/2014 [facility] CHEM PANEL B/C Ratio 16 6 - 25 02/19/2014 [facility] CHEM PANEL Globulin 4.2 g/dL 2.0 - 4.0 02/19/2014 [facility] CHEM PANEL AGAP 15.7 meq/L 10.0 - 20.0 02/19/2014 [facility] CHEM PANEL eGFR 43 mL/min/1.73m2 02/19/2014 [...] should be multiplied by the estimated BMI. [facility] CHEM PANEL Bili Total 1.1 mg/dL 0.2 - 1.3 02/19/2014 [facility] CHEM PANEL Alk Phos 151 unit/L 39 - 136 02/19/2014 [facility] CHEM PANEL Chloride Lvl 107 meq/L 95 - 109 02/19/2014 [facility] CHEM PANEL Sodium Lvl 142 meq/L 135 - 145 02/19/2014 [facility] CHEM PANEL CO2 23 meq/L 24 - 32 02/19/2014 [facility] CHEM PANEL Potassium Lvl 3.7 meq/L 3.5 - 5.1 02/19/2014 [facility] CHEM PANEL Creatinine Lvl 1.5 mg/dL 0.5 - 1.4 02/19/2014 [facility] CHEM PANEL AST 19 unit/L 0 - 37 02/19/2014 [facility] CHEM PANEL ALT 13 unit/L 0 - 65 02/19/2014 [facility] CHEM PANEL Albumin Lvl 3.5 g/dL 3.5 - 5.0 02/19/2014 [facility] CHEM PANEL Total Protein 7.7 g/dL 6.4 - 8.4 02/19/2014 [facility] CHEM PANEL Calcium Lvl 9.0 mg/dL 8.5 - 10.5 02/19/2014 [facility] CHEM PANEL BUN 24 mg/dL 7 - 22 02/19/2014 [facility] CHEM PANEL Glucose Lvl 131 mg/dL 70 - 99 02/19/2014 4Interpretive Data: Adult reference range values reflect the clinical guidelines of the [place] [employer]. [facility] HEMATOLOGY PT 13.6 s 12.0 - 14.7 02/19/2014 [facility] PTT 24.6 s 22.9 - 35.8 02/19/2014 8Interpretive Data: Heparin Therapeutic Range: 57 - 92 Seconds [facility] HEMATOLOGY INR 1.05 0.85 - 1.17 02/19/2014 7Interpretive Data: RECOMMENDED RANGES FOR PROTIME INR: 2.0-3.0 for most medical and surgical thromboembolic states. 2.5-3.5 for artificial heart valves and recurrent embolism. INR SHOULD BE USED ONLY FOR PATIENTS ON STABLE ANTICOAGULANT THERAPY. [facility] Hct 39.7 % 42.0 - 54.0 02/19/2014 [facility] MCV 86.8 fL 80.0 - 94.0 02/19/2014 [facility] RDW 15.4 % 11.5 - 14.5 02/19/2014 [facility] MCHC 33.0 g/dL 32.0 - 36.0 02/19/2014 [facility] MCH 28.7 pg 27.0 - 31.0 02/19/2014 [facility] WBC 14.6 K/CMM 3.7 - 10.4 02/19/2014 [facility] RBC 4.57 M/CMM 4.70 - 6.10 02/19/2014 [facility] Hgb 13.1 g/dL 14.0 - 18.0 02/19/2014 [facility] Platelet 257 K/CMM 133 - 450 02/19/2014 [facility] HEMATOLOGY MPV 8.6 fL 7.4 - 10.4 02/19/2014 [facility] HEMATOLOGY Basophils 0.3 % 0.0 - 1.0 02/19/2014 [facility] HEMATOLOGY Segs-Bands # 12.1 K/CMM 1.5 - 8.1 02/19/2014 [facility] HEMATOLOGY Basophils # 0.0 K/CMM 0.0 - 0.2 02/19/2014 [facility] HEMATOLOGY Monocytes # 1.1 K/CMM 0.0 - 0.8 02/19/2014 [facility] HEMATOLOGY Lymphocytes # 1.4 K/CMM 1.0 - 5.5 02/19/2014 [facility] HEMATOLOGY Eosinophils # 0.0 K/CMM 0.0 - 0.5 02/19/2014 [facility] HEMATOLOGY Lymphocytes 9.4 % 20.0 - 40.0 02/19/2014 [facility] HEMATOLOGY Segs 82.6 % 45.0 - 75.0 02/19/2014 [facility] HEMATOLOGY Eosinophils 0.0 % 0.0 - 4.0 02/19/2014 [facility] HEMATOLOGY Monocytes 7.7 % 2.0 - 12.0 02/19/2014 [facility] HEMATOLOGY Plt Morph Normal (02/19/14 11:10 AM) 02/19/2014 [facility] HEMATOLOGY RBC Morph Normal (02/19/14 11:10 AM) 02/19/2014 [facility] LIPIDS LDL (Calculated) 79 mg/dL <=99 mg/dL 02/19/2014 [facility] LIPIDS VLDL 22 02/19/2014 [facility] LIPIDS CHD Risk 3.10 4.00 - 7.30 02/19/2014 [facility] LIPIDS HDL 48 mg/dL >=61 mg/dL 02/19/2014 [facility] LIPIDS Chol 149 mg/dL <=199 mg/dL 02/19/2014 [facility] LIPIDS Trig 111 mg/dL <=149 mg/dL 02/19/2014 [facility] URINE AND STOOL UA Protein Negative mg/dL Negative mg/dL 02/19/2014 [facility] URINE AND STOOL UA Glucose Negative mg/dL Negative mg/dL 02/19/2014 [facility] URINE AND STOOL UA Nitrite Negative (02/19/14 11:10 AM) Negative 02/19/2014 [facility] URINE AND STOOL UA WBC 12 /HPF 0 - 5 02/19/2014 [facility] URINE AND STOOL UA Leuk Est Negative (02/19/14 11:10 AM) Negative 02/19/2014 [facility] URINE AND STOOL UA Ketones Negative mg/dL Negative mg/dL 02/19/2014 [facility] URINE AND STOOL UA Blood Negative (02/19/14 11:10 AM) Negative 02/19/2014 [facility] URINE AND STOOL UA Bili Negative *NA* (02/19/14 11:10 AM) Negative 02/19/2014 [facility] URINE AND STOOL UA RBC 7 /HPF 0 - 2 02/19/2014 [facility] URINE AND STOOL UA Bacteria Occasional /HPF None Seen /HPF 02/19/2014 [facility] URINE AND STOOL UA Urobilinogen <=1.0 mg/dL 0.1 - 1.0 02/19/2014 [facility] URINE AND STOOL UA Sq Epi None Seen 02/19/2014 [facility] URINE AND STOOL UA pH 6.0 5.0 - 8.0 02/19/2014 [facility] URINE AND STOOL UA Turbidity Clear (02/19/14 11:10 AM) Clear 02/19/2014 [facility] URINE AND STOOL UA Spec Grav 1.012 <=1.030 02/19/2014 [facility] URINE AND STOOL UA Color Yellow *NA* (02/19/14 11:10 AM) Yellow 02/19/2014 [facility] Chest 1view Chest 1view Examination: Chest [...] Damon Sadler MD 02/19/14 11:59 FINAL REPORT [facility] Brain wo contrast CT Brain wo [...] Logan Parker MD 02/19/14 11:40 FINAL REPORT [facility] Vital Signs Vital Sign Value Date Comments Source Heart Rate 88 12/10/2017 [facility] Systolic (mm Hg) 117 12/10/2017 [facility] Diastolic (mm Hg) 73 12/10/2017 [facility] Systolic (mm Hg) 109 04/19/2015 [facility] Diastolic (mm Hg) 74 04/19/2015 [facility] Heart Rate 79 04/19/2015 [facility] Respitory Rate 18 04/19/2015 [facility] Temperature Oral (F) 98.1 F 04/19/2015 [facility] Respitory Rate 18 04/19/2015 [facility] Systolic (mm Hg) 150 04/19/2015 [facility] Diastolic (mm Hg) 78 04/19/2015 [facility] Temperature Oral (F) 99.1 F 04/19/2015 [facility] Heart Rate 60 04/19/2015 [facility] Systolic (mm Hg) 120 04/19/2015 [facility] Diastolic (mm Hg) 61 04/19/2015 [facility] Respitory Rate 18 04/19/2015 [facility] Temperature Oral (F) 98.2 F 04/19/2015 [facility] Heart Rate 73 04/19/2015 [facility] Height 165.1 cm 04/16/2015 [facility] Weight 65.909 04/16/2015 [facility] BMI Calculated 24.18 04/16/2015 [facility] Height 165.1 cm 04/16/2015 [facility] BMI Calculated 23.35 04/16/2015 [facility] Weight 63.636 04/16/2015 [facility] Diastolic (mm Hg) 81 02/20/2014 [facility] Systolic (mm Hg) 166 02/20/2014 [facility] Respitory Rate 18 02/20/2014 [facility] Heart Rate 116 02/20/2014 [facility] Temperature Oral (F) 98.9 F 02/20/2014 [facility] Diastolic (mm Hg) 80 02/20/2014 [facility] Systolic (mm Hg) 134 02/20/2014 [facility] Temperature Oral (F) 98.4 F 02/20/2014 [facility] Heart Rate 105 02/20/2014 [facility] Respitory Rate 16 02/20/2014 [facility] Respitory Rate 18 02/20/2014 [facility] Heart Rate 99 02/20/2014 [facility] Diastolic (mm Hg) 70 02/20/2014 [facility] Systolic (mm Hg) 119 02/20/2014 [facility] Temperature Oral (F) 99.6 F 02/20/2014 [facility] Height 165.1 cm 02/19/2014 [facility] BMI Calculated 24.68 02/19/2014 [facility] Weight 67.273 02/19/2014 [facility] Weight 67.273 02/19/2014 [facility] BMI Calculated 24.68 02/19/2014 [facility] Height 165.1 cm 02/19/2014 [facility] Encounters Location Location Details Encounter Type Encounter Number Reason For Visit Attending Provider ADM Date DC Date Status Source [facility] OBS Observation Patient [id number] Jon Mulligan 02/19/2014 02/20/2014 [facility] Inpatient [id number] Abe Teqwimuah 04/16/2015 04/19/2015 [facility] Outpatient [id number] ETHAN FELIZ 07/07/2015 [facility] Outpatient [id number] Tanner Soto 07/19/2016 07/20/2016 [facility] Outpatient [id number] SOPHY KSKIM 10/29/2017 Active [facility] Outpatient [id number] Sophy Inkim 11/14/2017 11/14/2017 [facility] Outpatient [id number] SOPHY KSKIM 11/21/2017 [facility] Urology [facility] Ambulatory Pre-Reg [id number] Sophy Inkim 11/21/2017 11/21/2017 [facility] Out[facility] [id number] SOPHY KSKIM 11/25/2017 [facility] Outpatient [id number] Sophy Inkim 11/25/2017 11/26/2017 [facility] Outpatient [id number] Sophy Inkim 11/25/2017 11/26/2017 [facility] Outpatient [id number] PROCEDURE ROOM 1 11/28/2017 Active [facility] Outpatient [id number] SOPHY AMADO 11/28/2017 [facility] Outpatient [id number] Sophy [facility] 11/28/2017 11/29/2017 [facility] Outpatient [id number] Sophy [facility] 11/28/2017 11/29/2017 [facility] Outpatient [id number] SOPHY [facility] 12/10/2017 Active [facility] Outpatient [id number] Sophy [facility] 12/10/2017 12/11/2017 [facility] Outpatient [id number] Tanner Charles 12/23/2017 12/24/2017 [facility] Outpatient [id number] SOPHY [facility] 03/13/2018 Active [facility] Urology [facility] Ambulatory Pre-Reg [id number] Sophy [facility] 03/13/2018 03/13/2018 [facility] Procedures Procedure Code Date Perfomer Comments Source Cystourethroscopy (separate procedure) 80731 11/28/2017 [facility] Pacemaker care management [id number] [facility] Bypass<sup>1</sup> [id number] cardiac with no symptoms prior to surgery [facility] Pacemaker care management [id number] [facility] Bypass<sup>1</sup> [id number] cardiac with no symptoms prior to surgery [facility]
[2018-11-18] MEDS ORDERED: ASCORBIC ACID500 MG PO (13:27)
[2018-11-18] MEDS ORDERED: PLAVIX75 MG PO (13:27)
--- NOTE | 2018-11-18 13:49 | Diagnostic Imaging Report ---
History: Fall, on blood thinners Comparison studies:CT head 07/19/2018 Technique: Axial images were obtained from the brain and cervical spine. Coronal and sagittal images reconstructed from the axial data. Intravenous contrast: None Dose modulation, iterative reconstruction, and/or weight based adjustment of the mA/kV was utilized to reduce the radiation dose to as low as reasonably achievable. Findings: Head CT: Scalp/skull: Small right parietal scalp hematoma. No fractures, blastic or lytic lesions. Brain sulci: Mildly prominent. Moderately prominent anterior interhemispheric fissure and bilateral sylvian fissures, stable. Ventricles: Mildly prominent. No hydrocephalus. Extra-axial spaces: No masses. No fluid collections. Parenchyma: Few hypodensities of the periventricular and deep white matter, nonspecific. Mild mineralization of the bilateral globi pallidi. No masses, hemorrhage, acute or chronic cortical vascular insults. Sellar/suprasellar region: No abnormalities. Craniocervical junction: Patent foramen magnum. No Chiari one malformation. Atherosclerotic calcifications of the carotid siphons Cervical spine CT: Fractures: None. Soft tissues: No gross abnormalities. Atlantoaxial articulation: Intact. Alignment: Normal lordosis. No scoliosis. Cervicomedullary junction: No abnormalities. Patent foramen magnum. Vertebrae: No infection or neoplasm. Degenerative changes: Degenerative changes of the atlantoaxial joint given by decreased predental space, sclerosis and marginal osteophytes. Decreased intervertebral space from C4 through C6 with endplate sclerotic changes at C5-6. At 3-4, right uncinate process hypertrophy and facet hypertrophy results in mild right foraminal narrowing without significant canal stenosis. At C4-5, bilateral facet hypertrophy results in mild bilateral foraminal narrowing without significant canal stenosis. At C5-6, diffuse disc osteophyte complex and bilateral uncinate process hypertrophy results in mild canal stenosis, mild right and moderate left foraminal narrowing.. Incidental findings: Atherosclerotic calcifications of the carotid bulbs. Impression: Head CT: 1. No acute intracranial abnormality. 2. Small right parietal scalp hematoma without underlying fracture 3. Mild chronic microvascular ischemic changes of the white matter mild diffuse volume loss, stable. Cervical spine CT: 1. No acute cervical abnormalities. 2. Cannot exclude ligament, spinal cord and or vascular abnormalities on the basis of this examination. Signed by: DR Nick Bustamante M.D. on 11/18/2018 1:45 PM
[2018-11-18 14:17] VITALS: BP 159/78
== END 2018-11-18 14:24 | disposition home or self-care (01) ==
LOC: ER 11:55
DX: S00.83XA Contusion of other part of head, initial encounter (principal); S00.01XA Abrasion of scalp, initial encounter; W01.0XXA Fall on same level from slipping, tripping and stumbling without subsequent striking against object, initial encounter; Y92.008 Other place in unspecified non-institutional (private) residence as the place of occurrence of the external cause; I10 Essential (primary) hypertension; D64.9 Anemia, unspecified; I25.2 Old myocardial infarction; Z95.0 Presence of cardiac pacemaker; Z86.73 Personal history of transient ischemic attack (TIA), and cerebral infarction without residual deficits
CPT/HCPCS: 70450; 72125; 99283